=== PATIENT | female | born 1940 | race Caucasian/White ===

== ENCOUNTER 2019-06-19 15:14 | Outpatient (CLI) | payer MEDICARE, OTHER, SELFPAY ==
--- NOTE | ~2019-06-19 | CT_ITS ---
EXAMINATION: CT chest abdomen pelvis w con EXAM DATE: 06/19/2019 16:04 INDICATION: CLL. TECHNIQUE: Spiral CT of the chest, abdomen and pelvis was performed following intravenous injection o f 100 mL Omnipaque 350. Axial, coronal and sagittal images were reviewed. Coronal maximum intensity pixel images of chest reviewed. The dose-length product (DLP) for this examination was 511.31 mGy-c m. The exposure was tailored according to patient size (auto mA exposure control), and iterative rec onstruction (ASIR) was used as additional dose reduction technique. There is prior CT chest abdomen pelvis from 2006 for comparison. FINDINGS: CHEST: New biapical opacities appearance consistent with scarring. Mild emphysema and hyperinflation . The lungs are otherwise clear. There are no pleural or pericardial effusions. Tracheobronchial tree is patent. There is no mediastinal, hilar or axillary lymphadenopathy. There is no pneumotho rax. Heart normal in size. There is mild coronary arterial calcification, arterial sclerosis. ABDOMEN PELVIS: The liver, spleen, adrenal glands and pancreas are unremarkable. Gallbladder is unre markable. No biliary obstruction. Portal and splenic veins are patent. Kidneys enhance symmetrical ly. There is no hydronephrosis. The uterus is not identified and has likely been surgically resect ed. The bladder is unremarkable. There is no retroperitoneal or pelvic lymphadenopathy. There is mild scattered arteriosclerotic disease. Small left inguinal fat-containing hernia. The appendix is not positively visualized. There is no pericecal inflammatory change to suggest appe ndicitis. There is small sliding gastroesophageal hiatal hernia. There is expected amount of colon ic stool. No free intraperitoneal gas. There are no osteoblastic or osteolytic lesions identified . Advanced thoracolumbar spondylosis. IMPRESSION: 1. No chest abdomen or pelvis lymphadenopathy. Normal spleen size. 2. Mild emphysema and hyperinflation. 3. Small hiatal hernia. Reviewed, dictated and finalized at location A. 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
[2019-06-19 15:49] LABS: Blood Urea Nitrogen 23 mg/dL (8-26); Estimated Glomerular Filt Rate 31
== END 2019-06-19 15:15 | disposition home or self-care (01) ==
PROVIDERS: Visit Provider Internal Medicine Medical Oncology
DX: C91.10 Chronic lymphocytic leukemia of B-cell type not having achieved remission (principal); K44.9 Diaphragmatic hernia without obstruction or gangrene; J43.9 Emphysema, unspecified
CPT/HCPCS: 71260; 74177; Q9967

== ENCOUNTER 2019-06-26 11:47 | Outpatient (RCR) | payer MEDICARE, OTHER, SELFPAY ==
[2019-06-26 12:18] LABS: Hematocrit 21.2 % (37.0-47.0); Hemoglobin 7.1 g/dL (12.0-15.0)
[2019-06-27] MEDS: ACETAMINOPHEN 325 MG TABLET 650 MG PO (10:27)
[2019-06-27 10:30] VITALS: BMI 25.4
[2019-06-27 10:50] VITALS: BP 112/60; PULSE 78; RESP 16; TEMP 37.3; O2SAT 96
[2019-06-27] MEDS: SODIUM CHLORIDE 0.9% IV 250 ML 30 ML IV CONT (10:50)
[2019-06-27 11:05] VITALS: BP 118/64; PULSE 73; RESP 16; TEMP 37; O2SAT 100
[2019-06-27 12:05] VITALS: BP 109/65; PULSE 84; RESP 16; TEMP 36.9; O2SAT 98
[2019-06-27 13:05] VITALS: BP 107/64; PULSE 85; RESP 16; TEMP 36.9; O2SAT 98
== END 2019-09-24 23:59 | disposition home or self-care (01) ==
LOC: ANHCPCTRAN 11:47
PROVIDERS: Visit Provider Internal Medicine Medical Oncology
DX: C91.10 Chronic lymphocytic leukemia of B-cell type not having achieved remission (principal)
CPT/HCPCS: 36415; 36430; 85014; 85018; 86850; 86860; 86870; 86880; 86900; 86901; 86902; 86922; 86970; 86971; 86978; A9270; J1100; J7050; P9016

== ENCOUNTER 2019-07-08 09:53 | Outpatient (CLI) | payer MEDICARE, OTHER, SELFPAY ==
[2019-07-08 10:29] LABS: Basophils Absolute Auto 0.1 K/mm3 (0.0-0.1); Basophils Percent Auto 0.5 % (0.2-1.2); Eosinophils Absolute Auto 0.4 K/mm3 (0-0.3); Eosinophils Percent Auto 3.7 % (0-4.4); Immature Granulocyte Absolute 0.15 K/mm3 (0.00-0.031); Immature Granulocyte Percent A 1.3 % (0-0.5); Lymphocytes Absolute Auto 1.54 K/mm3 (0.9-3.2); Lymphocytes Percent Auto 13.8 % (18.3-44.2); Mean Corpuscular HGB Conc 31.5 g/dl (32-36); Mean Corpuscular Hemoglobin 41.9 pg (26-34); Mean Corpuscular Volume 133.1 fl (80-100); Mean Platelet Volume 8.9 fl (7.4-10.4); Monocytes Absolute Auto 1.6 K/mm3 (0.1-0.6); Monocytes Percent Auto 14.7 % (2.6-8.5); Neutrophils Absolute Auto 7.3 K/mm3 (1.3-6.7); Nucleated Red Blood Cells Absolute Auto 0.2 K/mm3 (0.0-0.012); Nucleated Red Blood Cells Perc 1.7 % (0.0-0.2); Platelet Count Result 254 k/mm3 (150-375); Red Blood Count 1.36 M/mm3 (4.2-5.4); Red Cell Distribution Width 18.6 % (11.5-14.5); White Blood Count 11.1 K/mm3 (4.5-10.0)
[2019-07-08 10:40] LABS: Hemoglobin 5.7 g/dL (12.0-15.0)
[2019-07-08 10:41] LABS: Hematocrit 18.1 % (37.0-47.0)
== END 2019-07-08 09:54 | disposition home or self-care (01) ==
LOC: ANHLAB 10:05
PROVIDERS: Visit Provider Internal Medicine Medical Oncology
DX: C91.10 Chronic lymphocytic leukemia of B-cell type not having achieved remission (principal)
CPT/HCPCS: 36415; 85025

== ENCOUNTER 2019-07-08 11:31 | Inpatient (IN) | payer MEDICARE, OTHER, SELFPAY ==
[2019-07-08] VITALS (25 sets, daily range): BP systolic 112–145; BP diastolic 52–82; PULSE 80–108; RESP 14–24; TEMP 36.4–36.9; O2SAT 82–100; BMI 25.3
[2019-07-08 12:28] LABS: INR 0.9; Prothrombin Time 12.3 Seconds (11.1-14.7)
[2019-07-08 12:29] LABS: Partial Thromboplastin Time 24.4 SECONDS (22.3-36.8)
[2019-07-08 12:29] LABS: Blood Urea Nitrogen 16 mg/dL (7-17); Calcium 9.3 mg/dL (8.4-10.2); Carbon Dioxide 25 mmol/L (22-30); Chloride 94 mmol/L (98-107); Estimated CRCL calculation 30 ml/min; Estimated Glomerular Filt Rate 48; Glucose 116 mg/dL (65-105); Potassium 3.9 mmol/L (3.4-5.0); Sodium 125 mmol/L (137-145)
--- NOTE | 2019-07-08 15:27 | ED.GENADULT ---
HPI - General Adult General Chief complaint: Recheck/Abnormal Lab/Rx Stated complaint: low hemoglobin, sent from PMD, labs checked today Time Seen by Provider: 07/08/19 15:25 Source: RN notes reviewed History of Present Illness HPI narrative: Patient presents emergency department from home for weakness. Patient she has a history of CLL was found to have low hemoglobin. Patient is followed by Dr. Castellon. She was directed to come to emergency department for admission for blood transfusion and further treatment. She notes shortness of breath with exertion. She denies any fevers or chills chest pain abdominal pain nausea vomiting or any other symptoms Related Data Home Medications Medication Instructions Recorded Confirmed acebutolol 200 mg PO BID 07/08/19 diclofenac sodium 2 g TOPICAL QID 07/08/19 fluticasone propionate 2 spray INTRANASAL DAILY 07/08/19 hydrochlorothiazide 25 mg PO DAILY 07/08/19 levothyroxine 88 mcg PO DAILY 07/08/19 nifedipine 30 mg PO DAILY 07/08/19 ondansetron HCl 4 mg PO Q6H PRN 07/08/19 tramadol 50 mg PO Q6H PRN 07/08/19 zolpidem 5 mg PO HS PRN 07/08/19 Allergies Allergy/AdvReac Type Severity Reaction Status Date / Time sulfamethoxazole Allergy Unknown N&V Verified 07/08/19 15:28 trimethoprim Allergy Unknown N&V Verified 07/08/19 15:28 Review of Systems Review of Systems: Narrative: Gen.: Denies fevers or chills Eyes: Denies eye pain or visual change ENT: Denies congestion Respiratory: Denies shortness of breath or cough CV: Denies chest pain or palpitations GI: Denies abdominal pain nausea, emesis or diarrhea denies burning, urgency, frequency or hematuria Musculoskeletal: Denies back pain or muscle pain Neuro: Reports weakness Skin: Denies rash Except as documented, all other systems reviewed and negative [facility] Past Medical History Medical History (Updated 07/08/19 @ 16:00 by Andrea Kang DO) CLL (chronic lymphocytic leukemia) Family History Family History (Updated 08/24/17 @ 10:19 by DOCTOR UNKNOWN) Grandparent Cerebrovascular accident Family history of coronary artery disease Father Family history of kidney disease, Onset Age: 83 Family history of coronary artery disease, Onset Age: 83 Social History Social History Smoking status: Never smoker Alcohol intake: never Gender identity (if verbalized by the patient): Female Exam Narrative: Exam Narrative: APPEARANCE: No acute distress, nontoxic, resting in bed EYES: EOMI, scleral icterus HEENT: Normocephalic, atraumatic, OMM RESPIRATORY: No respiratory distress Clear to auscultation bilaterally with no rhonchi wheezing or rales. CARDIOVASCULAR: Regular rate and rhythm without murmurs rubs or gallops. ABDOMINAL: Soft, nontender, nondistended, no rebound or guarding MUSCULOSKELETAl: Moves all extremities. No clubbing, cyanosis or edema. NEURO: Awake and alert. Following commands, speech normal, no focal deficits SKIN:: Warm, dry. No rashes lesions or abrasions PSYCHIATRIC: Normal affect/mood, Course Course Emergency Course: Reviewed old records Discussed with Dr. Grossman for Dr. Castellon. Request patient received 2 units packed red blood cells. Request patient receive Solu-Medrol 60 mg IV x1 now followed by 30 mg every 12 hours Discussed with JUAN Simon presentation work-up he agrees with admission at this time Discussed with patient and family results of workup and diagnosis. Discussed need for admission. Patient and family understand and agree to current treatment plan Vital Signs Vital signs: Vital Signs Temperature 97.6 F 07/08/19 11:59 Pulse Rate 80 07/08/19 11:59 Respiratory Rate 18 07/08/19 11:59 Blood Pressure 124/61 07/08/19 11:59 Pulse Oximetry 100 07/08/19 11:59 Temperature 97.6 F 07/08/19 11:59 Pulse Rate 88 07/08/19 15:22 Respiratory Rate 16 07/08/19 15:22
--- NOTE | 2019-07-08 15:34 | PC.NURSE ---
called lab and added on hepatic
[2019-07-08] MEDS: methylPREDNISolone SOD SUCC 40 MG VIAL 60 MG IV PUSH (16:06)
[2019-07-08] MEDS: FOLIC ACID 1 MG/0.2 ML INJ IV PUSH (16:07)
[2019-07-08] MEDS: SODIUM CHLORIDE 0.9% IV 250 ML 30 ML IV CONT (16:07)
[2019-07-08 16:47] LABS: Alanine Aminotransferase 13 U/L (4-35); Albumin Level 3.9 g/dL (3.5-5.1); Alkaline Phosphatase 91 U/L (38-126); Aspartate Amino Transferase 61 U/L (14-36); Bilirubin,Total 9.4 mg/dL (0.2-1.3)
--- NOTE | 2019-07-08 18:10 | PC.NURSE ---
This patient, Amber Atwood, was admitted to Medical Room 252-01. Patient/family oriented to hospital policies and general routines including ID bracelet, bed and alarms, visiting hours, pain management, procedures, bathroom and other care routines, personal items, smoking policy, room service/diet, and visiting hours. Valuables list has been completed. Information on how to activate the Rapid Response Team has been discussed. Patient/Family are encouraged to report perceived risks to care and to ask questions if they do not understand what they are told or what they should do.
[2019-07-08] MEDS: ACETAMINOPHEN 325 MG TABLET 650 MG PO (21:52)
[2019-07-08] MEDS: SODIUM CHLORIDE 0.9% IV 500 ML 30 ML (21:59)
[2019-07-09] VITALS (13 sets, daily range): BP systolic 109–138; BP diastolic 44–66; PULSE 53–98; RESP 14–21; TEMP 36–37.2; O2SAT 97–100
[2019-07-09] MEDS: TRAMADOL HCL 50 MG TABLET PO ×2 (00:33→21:28)
[2019-07-09] MEDS: ACEBUTOLOL HCL 200 MG CAPSULE PO ×3 (00:34→17:52)
[2019-07-09] MEDS: ZOLPIDEM TARTRATE 5 MG TABLET PO ×2 (00:37→22:41)
[2019-07-09] MEDS: LEVOTHYROXINE SODIUM 88 MCG TABLET PO (06:17)
--- NOTE | 2019-07-09 07:19 | WPDONCCN ---
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 On high dose of IV methyl prednisone. She has had an adequate increment after 2 units of PRBC transfusion. Continue monitoring CBC, CMP, LDH and diret bilirubin daily. (2) CLL (chronic lymphocytic leukemia): Code(s): C91.10 - Chronic lymphocytic leukemia of B-cell type not having achieved remission Status: Chronic Assessment and Plan: On Cytoxan as outpatient . Hold off treatment for now till acute issues resolve.. HPI Data of Consult Date/Time: 07/09/19 07:19 Requesting Physician: ERICA Wall Primary Care Provider: Ty Castellon, Consult Narrative Narrative: Amber Atwood is a 78 year old female who initially presented with Stage ) CLL in 2006. She is a patient of Dr. Castellon. She also has hypogammaglobinemia and has history of recurrent Autoimmune hemolytic anemia which started in 2015 and has responded to steroids well. She has beeen treated in the past with Chlorambucil and obitunuzumab in 2015 and Rituxan in June 2018. Currently she was started on cyclophosphamide in Jun 2019 while she was waiting for approval for venetoclax. She presented with weakness and was found to have a Hb of 5.7 with bilirubin of 9.1. Her Direct bernard was positive in the ED of [facility]. She was transfused 2 units of PRBC, started on folic acid as well as methyl prednisone IV 30 mg BID. Review of Systems Review of Systems: Narrative: 14 point review as per HPI/ Onc history. Rest of the systems negative. [facility] Past Medical History Medical History CLL (chronic lymphocytic leukemia) GERD (gastroesophageal reflux disease) Hyperlipidemia Hypertension Hypothyroidism Irritable bowel syndrome Alternates between constipation and diarrhea SVT (supraventricular tachycardia) Surgical History Surgical History H/O hemorrhoidectomy She believes in her 20s. H/O: hysterectomy History of rectal surgery benign rectal tumor resection age 18yo Hx of appendectomy At time of her hysterectomy Family History Family History Grandparent Cerebrovascular accident Family history of coronary artery disease Father Family history of kidney disease, Onset Age: 83 Family history of coronary artery disease, Onset Age: 83 Social History Social History Smoking status: Never smoker Alcohol intake: never Substance use: never Substance use type: does not use Gender identity (if verbalized by the patient): Female Spiritual care concerns: No Agree to blood products: Yes Meds Home Medications and Allergies Home Medications Medication Instructions Recorded Confirmed Type acebutolol 200 mg PO BID 07/08/19 07/08/19 History diclofenac sodium 2 g TOPICAL QID 07/08/19 07/08/19 History fluticasone propionate 2 spray INTRANASAL DAILY 07/08/19 07/08/19 History hydrochlorothiazide 25 mg PO DAILY 07/08/19 07/08/19 History levothyroxine 88 mcg PO DAILY 07/08/19 07/08/19 History nifedipine 30 mg PO DAILY 07/08/19 07/08/19 History ondansetron HCl 4 mg PO Q6H PRN 07/08/19 07/08/19 History tramadol 50 mg PO Q6H PRN 07/08/19 07/08/19 History zolpidem 5 mg PO HS PRN 07/08/19 07/08/19 History Allergies Allergy/AdvReac Type Severity Reaction Status Date / Time sulfamethoxazole Allergy Unknown N&V Verified 07/08/19 15:28 trimethoprim Allergy Unknown N&V Verified 07/08/19 15:28 Vital Signs Vi
[2019-07-09 07:34] LABS: Basophils Absolute Auto 0.1 K/mm3 (0.0-0.1); Basophils Percent Auto 0.4 % (0.2-1.2); Eosinophils Percent Auto 0.1 % (0-4.4); Hematocrit 25.9 % (37.0-47.0); Hemoglobin 8.7 g/dL (12.0-15.0); Immature Granulocyte Absolute 0.14 K/mm3 (0.00-0.031); Immature Granulocyte Percent A 1.2 % (0-0.5); Lymphocytes Absolute Auto 1.27 K/mm3 (0.9-3.2); Lymphocytes Percent Auto 10.6 % (18.3-44.2); Mean Corpuscular HGB Conc 33.6 g/dl (32-36); Mean Corpuscular Hemoglobin 37.3 pg (26-34); Mean Corpuscular Volume 111.2 fl (80-100); Mean Platelet Volume 8.7 fl (7.4-10.4); Monocytes Absolute Auto 1.4 K/mm3 (0.1-0.6); Monocytes Percent Auto 11.7 % (2.6-8.5); Neutrophils Absolute Auto 9.1 K/mm3 (1.3-6.7); Nucleated Red Blood Cells Absolute Auto 0.3 K/mm3 (0.0-0.012); Nucleated Red Blood Cells Perc 2.6 % (0.0-0.2); Platelet Count Result 209 k/mm3 (150-375); Red Blood Count 2.33 M/mm3 (4.2-5.4); Red Cell Distribution Width 25.6 % (11.5-14.5)
[2019-07-09 07:47] LABS: Alanine Aminotransferase 16 U/L (4-35); Albumin Level 3.9 g/dL (3.5-5.1); Alkaline Phosphatase 78 U/L (38-126); Aspartate Amino Transferase 58 U/L (14-36); Blood Urea Nitrogen 16 mg/dL (7-17); Calcium 9.5 mg/dL (8.4-10.2); Carbon Dioxide 26 mmol/L (22-30); Chloride 96 mmol/L (98-107); Estimated CRCL calculation 32 ml/min; Estimated Glomerular Filt Rate 54; Glucose 111 mg/dL (65-105); Magnesium 1.5 mg/dL (1.6-2.3); Potassium 3.7 mmol/L (3.4-5.0); Sodium 127 mmol/L (137-145)
[2019-07-09] MEDS: MAGNESIUM SULF 2 GM/WATER 50ML 2 GM/50 ML BAG IVPB (09:19)
[2019-07-09] MEDS: methylPREDNISolone SOD SUCC 40 MG VIAL 30 MG IV PUSH ×2 (09:20→21:28)
[2019-07-09] MEDS: FOLIC ACID 1 MG/0.2 ML INJ IV PUSH (09:21)
[2019-07-09] MEDS: FLUTICASONE PROPIONATE 0.05% NA SPR 16 GM BTL (*BKC) 2 SPRAY NASAL (09:22)
[2019-07-09] MEDS: NIFEdipine 30 MG TAB.ER.24 PO (09:23)
--- NOTE | 2019-07-09 11:23 | PM.IMHP ---
H&P: HPI History of Present Illness Chief complaint: Weakness Narrative: Date of Service 07/09/19 1100 The supervising physician for this history and physical is Dr Argueta. Ms. Atwood is a pleasant 78yo F with history of CLL, hypertension, hypothyroidism, irritable bowel syndrome history of supraventricular tachycardia presented to the ED for evaluation of weakness. She follows with Dr. Castellon and had been getting labs drawn regularly as an outpatient. She reports she was feeling more weak and tired and called Dr. Castellon's office yesterday, who instructed her to get outpatient lab work done. Her hemoglobin was found to be 5.7 yesterday and she reports she was barely able to stand up or walk. She noted that she recently received a blood transfusion (1 unit) in the last few weeks as an outpatient. She reports feeling better and stronger today. She denies chest pain, shortness of breath, palpitations, or dizziness. She notes some mild nausea without vomiting which she attributes to her new chemotherapy regimen. She reports she has been eating and drinking well lately and denies any sick contacts. She is admitted for management of symptomatic anemia and Dr Castellon's group has been consulted. Review of Systems Review of Systems: Narrative: She reports generalized weakness, improved today. She denies dizziness, lightheadedness, or headaches. Denies fevers or chills. No chest pain or shortness of breath. Minimal nausea without vomiting with starting a new chemotherapy regimen recently, hematochezia, or melena. Twelve systems were reviewed with pertinent positives and negatives as per HPI. [facility] Past Medical History Medical History CLL (chronic lymphocytic leukemia) GERD (gastroesophageal reflux disease) Hyperlipidemia Hypertension Hypothyroidism Irritable bowel syndrome Alternates between constipation and diarrhea SVT (supraventricular tachycardia) Surgical History Surgical History H/O hemorrhoidectomy She believes in her 20s. H/O: hysterectomy History of rectal surgery benign rectal tumor resection age 18yo Hx of appendectomy At time of her hysterectomy Family History Family History Grandparent Cerebrovascular accident Family history of coronary artery disease Father Family history of kidney disease, Onset Age: 83 Family history of coronary artery disease, Onset Age: 83 Social History Social History Smoking status: Never smoker Alcohol intake: never Substance use: never Substance use type: does not use Gender identity (if verbalized by the patient): Female Spiritual care concerns: No Agree to blood products: Yes Meds Home Medications and Allergies Home Medications Medication Instructions Recorded Confirmed Type acebutolol 200 mg PO BID 07/08/19 07/08/19 History diclofenac sodium 2 g TOPICAL QID 07/08/19 07/08/19 History fluticasone propionate 2 spray INTRANASAL DAILY 07/08/19 07/08/19 History hydrochlorothiazide 25 mg PO DAILY 07/08/19 07/08/19 History levothyroxine 88 mcg PO DAILY 07/08/19 07/08/19 History nifedipine 30 mg PO DAILY 07/08/19 07/08/19 History ondansetron HCl 4 mg PO Q6H PRN 07/08/19 07/08/19 History tramadol 50 mg PO Q6H PRN 07/08/19 07/08/19 History zolpidem 5 mg PO HS PRN 07/08/19 07/08/19 History Allergies Allergy/AdvReac Type Severity Reaction Status Date / Time sulfamethoxazole Allergy Unknown N&V Verified 07/08/19 15:28 trimethoprim Allergy Unknown N&V Verified 07/08/19 15:28 Vital Signs Last Vital Signs Temp 97.0 F L 07/09/19 06:00 Pulse 65 07/09/19 09:22 Resp 20 07/09/19 06:00 BP 138/66 07/09/19 06:00 Pulse Ox 98 07/09/19 06:00 Exam Narrative: Exam Narrative: General: Well-develop
[2019-07-09] MEDS: PANTOPRAZOLE 40 MG TABLET PO (13:31)
[2019-07-09] MEDS: hydroCHLOROthiazide 25 MG TABLET PO (13:31)
--- NOTE | 2019-07-09 17:05 | PC.NURSE ---
Acebutolol for 1700 will not scan, left message for pharmacy.
[2019-07-10 05:55] LABS: Basophils Percent Auto 0.2 % (0.2-1.2); Hematocrit 25.4 % (37.0-47.0); Hemoglobin 8.6 g/dL (12.0-15.0); Immature Granulocyte Absolute 0.18 K/mm3 (0.00-0.031); Immature Granulocyte Percent A 1.2 % (0-0.5); Lymphocytes Absolute Auto 1.08 K/mm3 (0.9-3.2); Lymphocytes Percent Auto 7.2 % (18.3-44.2); Mean Corpuscular HGB Conc 33.9 g/dl (32-36); Mean Corpuscular Hemoglobin 38.4 pg (26-34); Mean Corpuscular Volume 113.4 fl (80-100); Mean Platelet Volume 8.9 fl (7.4-10.4); Monocytes Absolute Auto 0.8 K/mm3 (0.1-0.6); Monocytes Percent Auto 5.4 % (2.6-8.5); Nucleated Red Blood Cells Absolute Auto 0.3 K/mm3 (0.0-0.012); Platelet Count Result 244 k/mm3 (150-375); Red Blood Count 2.24 M/mm3 (4.2-5.4); Red Cell Distribution Width 27.9 % (11.5-14.5); White Blood Count 15.1 K/mm3 (4.5-10.0)
[2019-07-10 06:00] VITALS: BP 112/54; PULSE 81; RESP 20; TEMP 36.2; O2SAT 98
[2019-07-10] MEDS: LEVOTHYROXINE SODIUM 88 MCG TABLET PO (06:11)
[2019-07-10 06:19] LABS: Albumin Level 3.9 g/dL (3.5-5.1)
[2019-07-10 06:22] LABS: Alanine Aminotransferase 16 U/L (4-35); Alkaline Phosphatase 75 U/L (38-126); Aspartate Amino Transferase 64 U/L (14-36); Bilirubin,Total 8.2 mg/dL (0.2-1.3); Blood Urea Nitrogen 21 mg/dL (7-17); Calcium 9.1 mg/dL (8.4-10.2); Carbon Dioxide 26 mmol/L (22-30); Chloride 95 mmol/L (98-107); Estimated CRCL calculation 32 ml/min; Estimated Glomerular Filt Rate 54; Glucose 124 mg/dL (65-105); Magnesium 1.9 mg/dL (1.6-2.3); Phosphorus 4.3 mg/dL (2.5-4.5); Potassium 3.7 mmol/L (3.4-5.0); Sodium 128 mmol/L (137-145)
[2019-07-10 06:58] LABS: Lactate Dehydrogenase 3200 U/L (313-618)
[2019-07-10 08:00] VITALS: PULSE 76; RESP 20; O2SAT 98
[2019-07-10 09:48] VITALS: PULSE 76
[2019-07-10] MEDS: FLUTICASONE PROPIONATE 0.05% NA SPR 16 GM BTL (*BKC) 2 SPRAY NASAL (09:48)
[2019-07-10] MEDS: ACEBUTOLOL HCL 200 MG CAPSULE PO ×2 (09:48→17:15)
[2019-07-10] MEDS: FOLIC ACID 1 MG/0.2 ML INJ IV PUSH (09:50)
[2019-07-10] MEDS: PANTOPRAZOLE 40 MG TABLET PO (09:51)
[2019-07-10] MEDS: NIFEdipine 30 MG TAB.ER.24 PO (09:51)
[2019-07-10] MEDS: hydroCHLOROthiazide 25 MG TABLET PO (09:51)
[2019-07-10] MEDS: methylPREDNISolone SOD SUCC 40 MG VIAL 30 MG IV PUSH ×2 (09:51→17:13)
--- NOTE | 2019-07-10 13:20 | WPDONCCN ---
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 Improved H/H after blood transfusion and steroids 2. Will give IVIG at 500 mg/kg today and tomorrow for temporary enhancement of her counts 3. Can be discharge tomorrow 4. Rx for Prednisone 20 mg daily 5. Rx Acyclovir 300 mg daily 6. f/u with me on July 11 in my [place] office 7. make sure she is on a PPI to prevent steroid PUD 8. Repeat CBC in AM HPI Data of Consult Date/Time: 07/10/19 13:20 Requesting Physician: ERICA Wall Primary Care Provider: Ty Castellon DO Consult Narrative Narrative: Amber Atwood is a 78 year old female 1. Hemolytic anemia due to CLL 2. Anxious and restlessness from high dose steroids 3. Improved dyspnea and stamina with increase in her H/H Review of Systems Review of Systems: All systems reviewed & are unremarkable except as noted in HPI and below Constitutional: Constitutional: Denies anorexia, Reports fatigue, Denies fever(s), Denies malaise, Denies night sweats, Reports snoring, Reports weakness and Denies weight loss Eyes: Eyes: Denies blurry vision ENT: Denies dysphagia, Denies epistaxis, Denies mouth lesions, Denies mouth pain, Denies odynophagia, Denies disequilibrium and Denies sore throat Cardiovascular: Cardiovascular: Denies chest pain, Denies leg edema and Denies dyspnea Respiratory: Respiratory: Denies cough, Denies dyspnea and Reports snoring Gastrointestinal: Gastrointestinal: Denies abdominal pain, Denies constipation, Denies dysphagia, Denies diarrhea, Denies nausea, Denies odynophagia and Denies vomiting Genitourinary: Genitourinary: Denies hematuria and Denies dysuria Musculoskeletal: Musculoskeletal: Denies myalgias, Reports arthralgias and Reports muscle weakness Integumentary/Breasts: Skin/Breast: Denies rash and Denies unusual bruising Neurologic: Denies confusion, Denies disequilibrium and Denies weakness Psychiatric: Psychiatric: Reports anxiety, Denies confusion and Denies depression Endocrine: Endocrine: Denies fatigue Hematologic/Lymphatic: Hematologic/Lymphatic: Denies easy bleeding, Reports easy bruising and Denies lymphadenopathy PENDING SALE TO [facility] Past Medical History Medical History CLL (chronic lymphocytic leukemia) GERD (gastroesophageal reflux disease) Hyperlipidemia Hypertension Hypothyroidism Irritable bowel syndrome Alternates between constipation and diarrhea SVT (supraventricular tachycardia) Surgical History Surgical History H/O hemorrhoidectomy She believes in her 20s. H/O: hysterectomy History of rectal surgery benign rectal tumor resection age 18yo Hx of appendectomy At time of her hysterectomy Family History Family History Grandparent Cerebrovascular accident Family history of coronary artery disease Father Family history of kidney disease, Onset Age: 83 Family history of coronary artery disease, Onset Age: 83 Social History Social History Smoking status: Never smoker Alcohol intake: never Substance use: never Substance use type: d
[2019-07-10 14:00] VITALS: BP 125/64; PULSE 82; RESP 18; TEMP 36.9; O2SAT 99
--- NOTE | 2019-07-10 14:42 | PM.IMPN ---
Progress Note: A&P Assessment and Plan (1) Symptomatic anemia: Code(s): D64.9 - Anemia, unspecified Status: Acute Assessment and Plan: Acute on chronic anemia, autoimmune hemolytic anemia. No evidence of acute bleeding. H&H 5.7, 18.1% on 07/07 outpatient and she received 2 units packed RBC; H&H low but stable at 8.6, 25.4% today. Management per heme/onc. Discussed case with Dr. Castellon and appreciate his recommendations. (2) CLL (chronic lymphocytic leukemia): Code(s): C91.10 - Chronic lymphocytic leukemia of B-cell type not having achieved remission Status: Chronic Assessment and Plan: Noted Dr Castellon's plan for IVIG today and tomorrow, plan for discharge home tomorrow if she remains stable with oral prednisone and oral acyclovir and short interval follow-up in his office. (3) Hypertension: Code(s): I10 - Essential (primary) hypertension Status: Chronic Assessment and Plan: Blood pressures maintained on home regimen with nifedipine, hydrochlorothiazide, acebutolol. (4) Hypothyroidism: Code(s): E03.9 - Hypothyroidism, unspecified Status: Chronic Assessment and Plan: Continue home levothyroxine. Subjective Date/time seen: 07/10/19 1200 Interval history: Ms. Atwood is a 78yo F with CLL admitted for anemia. She reports feeling well today. She is feeling a little stronger than when she came in, but not quite back to her baseline. She denies any chest pain, shortness of breath, or dizziness. She is tolerating oral intake without nausea or vomiting. Review of Systems Review of Systems: Narrative: Twelve systems were reviewed with pertinent positives and negatives as per HPI. Exam Narrative: Exam Narrative: General: Female resting sitting up in bedside chair in no acute distress. HEENT: Normocephalic, atraumatic, EOMI, scleral icterus. Neck: Supple. Chest: Lungs clear to auscultation all lyon. Respirations are even and nonlabored. Tolerating room air. Heart: Heart rate and rhythm regular. Abdomen: Soft nontender, nondistended. Bowel sounds present. Skin: Warm, dry, jaundiced. Extremities: Peripheral pulses intact. No edema, erythema, or pain to palpation. Neurologic: No focal neurological deficits noted. Speech is clear. Objective Data Vital Signs Vital Signs: Last Vital Signs Temp 97.2 F L 07/10/19 06:00 Pulse 76 07/10/19 09:48 Resp 20 07/10/19 08:00 BP 112/54 L 07/10/19 06:00 Pulse Ox 98 07/10/19 08:00 Intake/Output Intake/Output: Intake & Output 07/07/19 07/08/19 07/09/19 07/10/19 23:59 23:59 23:59 23:59 Intake Total 0 2544 790 Output Total 1900 800 Balance 0 644 -10 Meds/Results Medications: Active Medications Generic Name Dose Route Start Last Admin Trade Name Freq PRN Reason Stop Dose Admin Acebutolol HCl 200 mg 07/08/19 22:45 07/10/19 09:48 Sectral PO 200 mg BID LUZMA Administration Diphenhydramine HCl 25 mg 07/11/19 09:39 Benadryl Cap PO 07/11/19 09:40 ONCE ONE Fluticasone Propionate 2 spray 07/09/19 09:00 07/10/19 09:48 Flonase 0.05% Nasal Latta NASAL 2 spray DAILY LUZMA Administration Folic Acid 1 mg 07/09/19 09:00 07/10/19 09:50 Folic Acid Inj IV PUSH 1 mg QAM LUZMA Administration Hydrochlorothiazide 25 mg 07/09/19 09:00 07/10/19 09:51 Hydrochlorothiazide PO 25 mg DAILY LUZMA Administration Immune Globulin 31,400 gm in 314,000 mls @ 0 mls/hr 07/11/19 13:31 Privigen 10% IVPB 07/11/19 13:32 ONCE ONE Per Protocol Levothyroxine Sodium 88 mcg 07/09/19 06:30 07/10/19 06:11 Synthroid PO 88 mcg DAILY@0630 LUZMA Administration Methylprednisolone Sodium Succinate 30 mg 07/09/19 09:00 07/10/19 09:51 Solu-Medrol IV PUSH 30 mg Q12HR LUZMA Administration Nifedipine 30 mg 07/09/19 09:0
[2019-07-10] MEDS: TRAMADOL HCL 50 MG TABLET PO ×2 (15:16→23:46)
[2019-07-10 17:15] VITALS: PULSE 76
[2019-07-10] MEDS: ZOLPIDEM TARTRATE 5 MG TABLET PO (22:35)
[2019-07-10 22:36] VITALS: BP 104/47; PULSE 88; RESP 16; TEMP 36.7; O2SAT 97
[2019-07-11] VITALS (14 sets, daily range): BP systolic 110–150; BP diastolic 47–72; PULSE 74–89; RESP 15–17; TEMP 36.1–36.8; O2SAT 97–99
[2019-07-11] MEDS: LEVOTHYROXINE SODIUM 88 MCG TABLET PO (06:08)
[2019-07-11 06:10] LABS: Basophils Percent Auto 0.1 % (0.2-1.2); Hematocrit 21.1 % (37.0-47.0); Immature Granulocyte Absolute 0.37 K/mm3 (0.00-0.031); Immature Granulocyte Percent A 2.4 % (0-0.5); Lymphocytes Percent Auto 9.7 % (18.3-44.2); Mean Corpuscular HGB Conc 33.2 g/dl (32-36); Mean Corpuscular Volume 114.7 fl (80-100); Mean Platelet Volume 8.9 fl (7.4-10.4); Monocytes Absolute Auto 1.4 K/mm3 (0.1-0.6); Monocytes Percent Auto 9.2 % (2.6-8.5); Neutrophils Absolute Auto 12.2 K/mm3 (1.3-6.7); Neutrophils Percent Auto 78.6 % (45.5-73.1); Nucleated Red Blood Cells Absolute Auto 0.2 K/mm3 (0.0-0.012); Nucleated Red Blood Cells Perc 1.2 % (0.0-0.2); Platelet Count Result 195 k/mm3 (150-375); Red Blood Count 1.84 M/mm3 (4.2-5.4); White Blood Count 15.5 K/mm3 (4.5-10.0)
[2019-07-11 07:01] LABS: Alanine Aminotransferase 14 U/L (4-35); Albumin Level 3.4 g/dL (3.5-5.1); Alkaline Phosphatase 64 U/L (38-126); Aspartate Amino Transferase 37 U/L (14-36); Bilirubin,Total 6.6 mg/dL (0.2-1.3); Blood Urea Nitrogen 26 mg/dL (7-17); Carbon Dioxide 28 mmol/L (22-30); Chloride 94 mmol/L (98-107); Estimated CRCL calculation 32 ml/min; Estimated Glomerular Filt Rate 54; Glucose 96 mg/dL (65-105); Magnesium 1.7 mg/dL (1.6-2.3); Phosphorus 3.9 mg/dL (2.5-4.5); Potassium 3.5 mmol/L (3.4-5.0); Sodium 126 mmol/L (137-145)
[2019-07-11 07:18] LABS: Lactate Dehydrogenase 2431 U/L (313-618)
[2019-07-11 07:23] LABS: Platelet Estimate Adequate (Adequate)
[2019-07-11 07:24] LABS: Anisocytosis 2+ (NORMAL)
[2019-07-11] MEDS: MAGNESIUM OXIDE 200 MG TABLET PO ×2 (10:05→21:49)
[2019-07-11] MEDS: PANTOPRAZOLE 40 MG TABLET PO (10:06)
[2019-07-11] MEDS: FLUTICASONE PROPIONATE 0.05% NA SPR 16 GM BTL (*BKC) 2 SPRAY NASAL (10:06)
[2019-07-11] MEDS: hydroCHLOROthiazide 25 MG TABLET PO (10:06)
[2019-07-11] MEDS: NIFEdipine 30 MG TAB.ER.24 PO (10:06)
[2019-07-11] MEDS: methylPREDNISolone SOD SUCC 40 MG VIAL 30 MG IV PUSH ×2 (10:07→21:48)
[2019-07-11] MEDS: ACEBUTOLOL HCL 200 MG CAPSULE PO ×2 (10:08→18:18)
[2019-07-11] MEDS: FOLIC ACID 1 MG/0.2 ML INJ IV PUSH (10:17)
--- NOTE | 2019-07-11 10:59 | PM.IMPN ---
Progress Note: A&P Assessment and Plan (1) Symptomatic anemia: Code(s): D64.9 - Anemia, unspecified Status: Acute Assessment and Plan: Acute on chronic anemia, autoimmune hemolytic anemia. No evidence of acute bleeding. H&H 5.7, 18.1% on 07/07 outpatient and she received 2 units packed RBC 07/07; H&H low again today at 7.0, 21.1% and Dr. Castellon has ordered another 2 units packed RBC. Management per heme/onc. Discussed case with Dr. Castellon yesterday and appreciate his recommendations. She remains on IV solu-medrol here and will be discharged with oral prednisone. (2) CLL (chronic lymphocytic leukemia): Code(s): C91.10 - Chronic lymphocytic leukemia of B-cell type not having achieved remission Status: Chronic Assessment and Plan: Noted Dr Castellon's plan for IVIG yesterday and today, hopeful for discharge home tomorrow if she remains stable with oral prednisone and oral acyclovir and short interval follow-up in his office. (3) Hypertension: Code(s): I10 - Essential (primary) hypertension Status: Chronic Assessment and Plan: Blood pressures are stable maintained on home regimen with nifedipine, hydrochlorothiazide, acebutolol. (4) Hypothyroidism: Code(s): E03.9 - Hypothyroidism, unspecified Status: Chronic Assessment and Plan: Continue home levothyroxine. Subjective Date/time seen: 07/11/19 10:45 Interval history: Ms. Atwood is a 78yo F with CLL admitted for anemia. She reports feeling well today and feels she is getting a bit stronger. She denies any chest pain, shortness of breath, or dizziness. She denies dysuria or hematuria. She tolerated breakfast without nausea or vomiting. Review of Systems Review of Systems: Narrative: Twelve systems were reviewed with pertinent positives and negatives as per HPI. Exam Narrative: Exam Narrative: General: Female resting supine in bed in no acute distress. HEENT: Normocephalic, atraumatic, EOMI, scleral icterus. Neck: Supple. Chest: Lungs clear to auscultation all lyon. Respirations are even and nonlabored. Tolerating room air. Heart: Heart rate and rhythm regular. Abdomen: Soft nontender, nondistended. Bowel sounds present. Skin: Warm, dry, jaundiced. Extremities: Peripheral pulses intact. No edema, erythema, or pain to palpation. Neurologic: No focal neurological deficits noted. Speech is clear. Objective Data Vital Signs Vital Signs: Last Vital Signs Temp 97.2 F L 07/11/19 11:25 Pulse 81 07/11/19 11:25 Resp 16 07/11/19 11:25 BP 121/59 L 07/11/19 11:25 Pulse Ox 97 07/11/19 11:25 Intake/Output Intake/Output: Intake & Output 07/08/19 07/09/19 07/10/19 07/11/19 23:59 23:59 23:59 23:59 Intake Total 0 2544 2834 340 Output Total 1900 1850 800 Balance 0 644 984 -460 Meds/Results Medications: Active Medications Generic Name Dose Route Start Last Admin Trade Name Freq PRN Reason Stop Dose Admin Acebutolol HCl 200 mg 07/08/19 22:45 07/11/19 10:08 Sectral PO 200 mg BID LUZMA Administration Diphenhydramine HCl 25 mg 07/11/19 17:00 Benadryl Cap PO 07/11/19 17:01 ONCE ONE Fluticasone Propionate 2 spray 07/09/19 09:00 07/11/19 10:06 Flonase 0.05% Nasal [place] NASAL 2 spray DAILY LUZMA Administration Folic Acid 1 mg 07/09/19 09:00 07/11/19 10:17 Folic Acid Inj IV PUSH 1 mg QAM LUZMA Administration Hydrochlorothiazide 25 mg 07/09/19 09:00 07/11/19 10:06 Hydrochlorothiazide PO 25 mg DAILY LUZMA Administration Immune Globulin 30 gm/ Immune 314 mls @ 18.8 mls/hr 07/11/19 17:30 Globulin 1.4 gm/ N/A IVPB 07/12/19 10:12 ONCE ONE Sodium Chloride 250 mls @ 30 mls/hr 07/11/19 08:22 Normal Saline Iv IV CONT 07/11/19 16:41 .[id number] STA Levothyroxine Sodium 88 mcg 07/09/19 06:30 0
[2019-07-11] MEDS: SODIUM CHLORIDE 0.9% IV 250 ML 30 ML IV CONT (11:10)
[2019-07-11 11:29] LABS: Add Urine Microscopic? YES; Appearance Urine Clear (Clear); Bilirubin Urine Negative (Negative); Blood Urine 1+ (Negative); Color Urine Yellow (Yellow); Glucose Urine UA Negative (Negative); Ketones Urine Negative (Negative); Leukocyte Esterase Ur Negative LEU/UL (NEGATIVE); Nitrate Urine Negative (Negative); Protein Urine Negative (Negative); RBC Urine 0-2 /hpf (0-2); Squamous Epithelial Cell Urine Rare /hpf (Few); Urobilinogen Urine Negative mg/dL (<2.0); WBC Urine 0-3 /hpf (0-3)
[2019-07-11] MEDS: FUROSEMIDE INJ 40 MG/4 ML VIAL 20 MG IV PUSH (14:49)
--- NOTE | 2019-07-11 20:13 | WPDONCPN ---
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 today, she completed her 2 days of IVIG therapy. 2. She will have another repeat CBC in the morning. 3. She did get 2 units of blood today due to continued brisk hemolysis. 4. Patient continues to be on Solu-Medrol 30 mg every 12 hours. 5. I will evaluate the patient tomorrow/Monday for discharge or for continued medical therapy. (2) CLL (chronic lymphocytic leukemia): Code(s): C91.10 - Chronic lymphocytic leukemia of B-cell type not having achieved remission Status: Chronic Assessment and Plan: Directed therapy with Venetoclax will begin next Monday. CT scan shows no evidence of organomegaly or lymphadenopathy. Review of Systems Review of Systems All systems reviewed & are unremarkable except as noted in HPI and below ENT Reports Normal hearing present Respiratory Respiratory: Reports no additional respiratory complaints Genitourinary Genitourinary: Reports nocturia Musculoskeletal Musculoskeletal: Reports arthralgias Psychiatric Psychiatric: Reports anxiety Exam Const: General: cooperative, no acute distress, anxious and ill appearing; No confusion Nutritional Appearance: average body habitus Orientation/consciousness: patient oriented x3 and No confusion HENMT: General nose exam: Normal nares present Mouth: Yes Normal oral and palatal mucosa present, Yes oropharynx normal and Yes moist mucous membranes Teeth and gingiva: dentition normal Eyes: General: appearance normal, both eyes and all related structures Sclera: scleral abnormality EOM: EOMs intact bilaterally Neck: Neck: full ROM, supple and no JVD Thyroid: thyroid normal Lymphatic: no lymphadenopathy noted Resp: Effort & Inspection: normal respiratory effort Auscultation: clear to auscultation bilaterally Cardio: Rate: regular rate Rhythm: regular rhythm GI: Inspection: normal to inspection Auscultation: normal bowel sounds Rectal Exam: deferred Skin: General skin exam: normal color, no rashes or lesions noted, dry skin, jaundice and pallor Neuro: General: patient oriented x3, gait normal and No confusion Cranial nerves: Yes CN's II-XII intact bilaterally Cognition (Neuro): normal cognition Speech: normal speech Motor exam (neuro): Abnormal motor strength present Extrem: General: normal to inspection, no pedal edema and normal gait Psych: Mental Status: mental status grossly normal Affect: Anxious affect present Objective Data Vital Signs Vital Signs: Vital Signs - 24 hr 07/10/19 22:36 07/11/19 06:09 07/11/19 10:08 Temperature 36.7 C 36.7 C Pulse Rate 88 80 74 Respiratory Rate 16 16 Blood Pressure 104/47 L 110/57 L Pulse Oximetry 97 97 07/11/19 11:10 07/11/19 11:25 07/11/19 12:25 Temperature 36.2 C L 36.2 C L 36.1 C L Pulse Rate 84 81 80 Respiratory Rate 16 16 16 Blood Pressure 150/72 H 121/59 L 125/62 Pulse Oximetry 99 97 98 07/11/19 13:25 07/11/19 14:25 07/11/19 15:50 Temperature 36.2 C L 36.6 C 36.2 C L Pulse Rate 83 89 79 Respiratory Rate 17 17 16 Blood Pressure 120/55 L 111/47 L 128/62 Pulse Oximetry 98 99 99 07/11/19 16:05 07/11/19 17:05 07/11/19 18:05 Temperature 36.4 C L 36.3 C L 36.8 C Pulse Rate 79 83 83 Respiratory Rate 16 15 15 Blood Pressure 128/62 136/67 117/60 Pulse Oximetry 99 98 97 07/11/19 18:18 07/11/19 18:40 Temperature 36.4 C L Pulse Rate 82 84 Respiratory Rate 16 Blood Pressure 120/51 L Pulse Oximetry 97 Intake/Output Intake/Output: Intake & Output 07/08/19 07/09/19 07/10/19 07/11/19 23:59 23:59 23:59 23:59 Intake Total 0 / 0 2544 / 2544 2834 / 2834 3517 / 3517 Output Total 1899 / 0 1850 / 1850 2149 / 2149 B
[2019-07-11 21:10] LABS: Hematocrit 31.4 % (37.0-47.0); Hemoglobin 10.8 g/dL (12.0-15.0)
[2019-07-11] MEDS: ZOLPIDEM TARTRATE 5 MG TABLET PO (21:49)
[2019-07-11] MEDS: TRAMADOL HCL 50 MG TABLET PO (21:49)
[2019-07-12 05:17] LABS: Basophils Percent Auto 0.2 % (0.2-1.2); Hematocrit 30.5 % (37.0-47.0); Hemoglobin 10.2 g/dL (12.0-15.0); Immature Granulocyte Absolute 0.12 K/mm3 (0.00-0.031); Immature Granulocyte Percent A 1.5 % (0-0.5); Lymphocytes Absolute Auto 0.78 K/mm3 (0.9-3.2); Lymphocytes Percent Auto 9.6 % (18.3-44.2); Mean Corpuscular HGB Conc 33.4 g/dl (32-36); Mean Corpuscular Hemoglobin 34.9 pg (26-34); Mean Corpuscular Volume 104.5 fl (80-100); Mean Platelet Volume 9.1 fl (7.4-10.4); Monocytes Absolute Auto 0.4 K/mm3 (0.1-0.6); Monocytes Percent Auto 5.4 % (2.6-8.5); Neutrophils Absolute Auto 6.7 K/mm3 (1.3-6.7); Neutrophils Percent Auto 83.3 % (45.5-73.1); Nucleated Red Blood Cells Absolute Auto 0.1 K/mm3 (0.0-0.012); Nucleated Red Blood Cells Perc 1.6 % (0.0-0.2); Platelet Count Result 183 k/mm3 (150-375); Red Blood Count 2.92 M/mm3 (4.2-5.4); Red Cell Distribution Width 27.5 % (11.5-14.5); White Blood Count 8.1 K/mm3 (4.5-10.0)
[2019-07-12 05:32] LABS: Alanine Aminotransferase 16 U/L (4-35); Albumin Level 3.8 g/dL (3.5-5.1); Alkaline Phosphatase 85 U/L (38-126); Aspartate Amino Transferase 43 U/L (14-36); Bilirubin,Total 6.7 mg/dL (0.2-1.3); Blood Urea Nitrogen 31 mg/dL (7-17); Calcium 8.8 mg/dL (8.4-10.2); Carbon Dioxide 29 mmol/L (22-30); Chloride 92 mmol/L (98-107); Estimated CRCL calculation 30 ml/min; Estimated Glomerular Filt Rate 48; Glucose 124 mg/dL (65-105); Magnesium 1.7 mg/dL (1.6-2.3); Phosphorus 4.6 mg/dL (2.5-4.5); Potassium 3.5 mmol/L (3.4-5.0); Sodium 129 mmol/L (137-145)
[2019-07-12 05:49] VITALS: BP 122/59; PULSE 73; RESP 16; TEMP 36.2; O2SAT 98
[2019-07-12] MEDS: LEVOTHYROXINE SODIUM 88 MCG TABLET PO (06:54)
[2019-07-12 07:01] LABS: Lactate Dehydrogenase 2562 U/L (313-618)
[2019-07-12] MEDS: FLUTICASONE PROPIONATE 0.05% NA SPR 16 GM BTL (*BKC) 2 SPRAY NASAL (09:43)
[2019-07-12] MEDS: methylPREDNISolone SOD SUCC 40 MG VIAL 30 MG IV PUSH (09:43)
[2019-07-12] MEDS: TRAMADOL HCL 50 MG TABLET PO (09:44)
[2019-07-12] MEDS: hydroCHLOROthiazide 25 MG TABLET PO (09:44)
[2019-07-12] MEDS: PANTOPRAZOLE 40 MG TABLET PO (09:44)
[2019-07-12] MEDS: FOLIC ACID 1 MG/0.2 ML INJ IV PUSH (09:44)
[2019-07-12] MEDS: MAGNESIUM OXIDE 200 MG TABLET PO (09:44)
[2019-07-12 09:45] VITALS: PULSE 78
[2019-07-12] MEDS: ACEBUTOLOL HCL 200 MG CAPSULE PO (09:45)
[2019-07-12] MEDS: NIFEdipine 30 MG TAB.ER.24 PO (09:46)
--- NOTE | 2019-07-12 10:12 | PM.IMPN ---
Progress Note: A&P Assessment and Plan (1) Symptomatic anemia: Code(s): D64.9 - Anemia, unspecified Status: Acute Assessment and Plan: Discharged. See discharge summary. Acute on chronic anemia, autoimmune hemolytic anemia. No evidence of acute bleeding. H&H 5.7, 18.1% on 07/07 outpatient prior to arrival. She has received a total of 4 units packed RBC during this stay. Management per heme/onc - appreciate Dr Castellon's recommendations. She remains on IV solu-medrol here and will be discharged with oral prednisone. (2) CLL (chronic lymphocytic leukemia): Code(s): C91.10 - Chronic lymphocytic leukemia of B-cell type not having achieved remission Status: Chronic Assessment and Plan: Anticipate possible discharge today with oral prednisone and oral acyclovir, follow up with Dr Castellon. (3) Hypertension: Qualifiers: Hypertension type: essential hypertension Qualified Code(s): I10 - Essential (primary) hypertension Code(s): I10 - Essential (primary) hypertension Status: Chronic Assessment and Plan: Blood pressures are stable maintained on home regimen with nifedipine, hydrochlorothiazide, acebutolol. (4) Hypothyroidism: Qualifiers: Hypothyroidism type: unspecified Qualified Code(s): E03.9 - Hypothyroidism, unspecified Code(s): E03.9 - Hypothyroidism, unspecified Status: Chronic Assessment and Plan: Continue home levothyroxine. Subjective Date/time seen: 07/12/19 10:00 Interval history: Ms. Atwood is a 78yo F with CLL admitted for anemia. She reports some arthritic pain to bilateral knees but otherwise feels well this morning. She denies chest pain, shortness of breath, or calf tenderness. She is tolerating oral intake without nausea or vomiting. She notes that Dr Castellon plans to see her this afternoon and is hopeful for discharge later today. Exam Narrative: Exam Narrative: General: Female resting supine in bed in no acute distress. HEENT: Normocephalic, atraumatic, EOMI, scleral icterus. Neck: Supple. Chest: Lungs clear to auscultation all lyon. Respirations are even and nonlabored. Tolerating room air. Heart: Heart rate and rhythm regular. Abdomen: Soft nontender, nondistended. Bowel sounds present. Skin: Warm, dry, jaundiced. Extremities: Peripheral pulses intact. No edema, erythema, or pain to palpation. Neurologic: No focal neurological deficits noted. Speech is clear. Objective Data Vital Signs Vital Signs: Vital Signs - 24 hr 07/11/19 11:10 07/11/19 11:25 07/11/19 12:25 Temperature 97.1 F L 97.2 F L 97.0 F L Pulse Rate 84 81 80 Respiratory Rate 16 16 16 Blood Pressure 150/72 H 121/59 L 125/62 Pulse Oximetry 99 97 98 07/11/19 13:25 07/11/19 14:25 07/11/19 15:50 Temperature 97.1 F L 97.8 F 97.2 F L Pulse Rate 83 89 79 Respiratory Rate 17 17 16 Blood Pressure 120/55 L 111/47 L 128/62 Pulse Oximetry 98 99 99 07/11/19 16:05 07/11/19 17:05 07/11/19 18:05 Temperature 97.5 F L 97.3 F L 98.3 F Pulse Rate 79 83 83 Respiratory Rate 16 15 15 Blood Pressure 128/62 136/67 117/60 Pulse Oximetry 99 98 97 07/11/19 18:18 07/11/19 18:40 07/11/19 21:50 Temperature 97.5 F L 97.7 F Pulse Rate 82 84 77 Respiratory Rate 16 16 Blood Pressure 120/51 L 120/54 L Pulse Oximetry 97 98 07/12/19 05:49 07/12/19 09:45 Temperature 97.1 F L Pulse Rate 73 78 Respiratory Rate 16 Blood Pressure 122/59 L Pulse Oximetry 98 Intake/Output Intake/Output: Intake & Output 07/09/19 07/10/19 07/11/19 07/12/19 23:59 23:59 23:59 23:59 Intake Total 1684 2834 3831 540 Output Total 1900 1850 2150 1200 Balance 688 246 8476 -660 Meds/Results Medications: Active Medications Generic Name Dose Route Start Last Admin Trade Name Freq PRN Reason Stop Dose Admin Acebu
--- NOTE | 2019-07-12 13:18 | WPDONCPN ---
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 Can be discharged today 2. F/u with Dr. Castellon in one week 3. Send pt home on Prednisone 20 mg daily and Acyclovir 300 mg daily 4. She can start her Venetoclax on Monday 5. office to call for lab orders (2) CLL (chronic lymphocytic leukemia): Code(s): C91.10 - Chronic lymphocytic leukemia of B-cell type not having achieved remission Status: Chronic Assessment and Plan: no clinical signs of leukemia improved blood counts less hemolysis Review of Systems Review of Systems All systems reviewed & are unremarkable except as noted in HPI and below Exam Const: General: cooperative, no acute distress, anxious and ill appearing; No confusion Nutritional Appearance: average body habitus Orientation/consciousness: patient oriented x3 and No confusion HENMT: General nose exam: Normal nares present Mouth: Yes Normal oral and palatal mucosa present, Yes oropharynx normal and Yes moist mucous membranes Teeth and gingiva: dentition normal Eyes: General: appearance normal, both eyes and all related structures Sclera: scleral abnormality EOM: EOMs intact bilaterally Neck: Neck: full ROM, supple and no JVD Thyroid: thyroid normal Lymphatic: no lymphadenopathy noted Resp: Effort & Inspection: normal respiratory effort Auscultation: clear to auscultation bilaterally Cardio: Rate: regular rate Rhythm: regular rhythm GI: Inspection: normal to inspection Auscultation: normal bowel sounds Rectal Exam: deferred Skin: General skin exam: normal color, no rashes or lesions noted, dry skin, jaundice and pallor Neuro: General: patient oriented x3, gait normal and No confusion Cranial nerves: Yes CN's II-XII intact bilaterally and Yes Normal hearing present Cognition (Neuro): normal cognition Speech: normal speech Motor exam (neuro): Abnormal motor strength present Extrem: General: normal to inspection, no pedal edema and normal gait Psych: Mental Status: mental status grossly normal Affect: Anxious affect present Objective Data Vital Signs Vital Signs: Vital Signs - 24 hr 07/11/19 13:25 07/11/19 14:25 07/11/19 15:50 Temperature 36.2 C L 36.6 C 36.2 C L Pulse Rate 83 89 79 Respiratory Rate 17 17 16 Blood Pressure 120/55 L 111/47 L 128/62 Pulse Oximetry 98 99 99 07/11/19 16:05 07/11/19 17:05 07/11/19 18:05 Temperature 36.4 C L 36.3 C L 36.8 C Pulse Rate 79 83 83 Respiratory Rate 16 15 15 Blood Pressure 128/62 136/67 117/60 Pulse Oximetry 99 98 97 07/11/19 18:18 07/11/19 18:40 07/11/19 21:50 Temperature 36.4 C L 36.5 C Pulse Rate 82 84 77 Respiratory Rate 16 16 Blood Pressure 120/51 L 120/54 L Pulse Oximetry 97 98 07/12/19 05:49 07/12/19 09:45 Temperature 36.2 C L Pulse Rate 73 78 Respiratory Rate 16 Blood Pressure 122/59 L Pulse Oximetry 98 Intake/Output Intake/Output: Intake & Output 07/09/19 07/10/19 07/11/19 07/12/19 23:59 23:59 23:59 23:59 Intake Total 2544 / 2544 2834 / 2834 3831 / 3831 540 / 540 Output Total 1900 / 1900 1850 / 1850 2150 / 2150 1200 / 1200 Balance 644 / 644 984 / 984 1681 / 1681 -660 / -660 Meds/Results Medications: Active Medications Generic Name Dose Route Start Last Admin Trade Name Freq PRN Reason Stop Dose Admin Acebutolol HCl 200 mg 07/08/19 22:45 07/12/19 09:45 Sectral PO 200 mg BID LUZMA Administration Fluticasone Propionate 2 spray 07/09/19 09:00 07/12/19 09:43 Flonase 0.05% Nasal [place] NASAL 2 spray DAILY LUZMA Administration Folic Acid 1 mg 07/09/19 09:00 07/12/19 09:44 Folic Acid Inj IV PUSH 1 mg QAM LUZMA Administration Hydrochlorothiazide 25 mg 07/09/19 09:00 07/12/19
--- NOTE | 2019-07-12 14:40 | PM.DS ---
DS: Diagnosis Admitting Diagnosis Admitting Diagnosis: Other autoimmune hemolytic anemias Discharge Diagnosis (1) Symptomatic anemia: Code(s): D64.9 - Anemia, unspecified Status: Acute Assessment and Plan: Date of Service 07/12/19 Ms. Atwood is a pleasant 78yo F with chronic lymphocytic leukemia (follows with Dr Castellon), hypertension, and hypothyroidism who presented to the ED due to weakness and Hgb 5.7 on outpatient labs. She had contacted Dr Castellon's office due to increased fatigue and outpatient labs were ordered. She was instructed to the ED due to the profound anemia. She has a past history of secondary autoimmune hemolytic anemia with CLL. LDH > 3000. She was evaluated by Dr Castellon and was started on IV solu-medrol due to hemolysis. She was also treated with IVIG x [address] Castellon's recommendations. She received a total of 4 units packed RBC transfusion during this admission. H&H low but stable at 10.2, 30.5% on day of discharge. She had no evidence of acute bleeding. She was maintained on GI prophylaxis with pantoprazole which was continued at discharge with ongoing steroid therapy. Dr Castellon also recommended 300mg daily acyclovir for zoster prophylaxis in her immunocompromised state. She was feeling much stronger and was hemodynamically stable for discharge 07/12/19. She will follow up with Dr Castellon in 1 week and PCP as needed. Consultation: Hematology/Oncology - Dr Castellon Acute on chronic anemia, autoimmune hemolytic anemia. No evidence of acute bleeding. H&H 5.7, 18.1% on 07/07 outpatient prior to arrival. She has received a total of 4 units packed RBC during this stay. Management per heme/onc - appreciate Dr Castellon's recommendations. She remains on IV solu-medrol here and will be discharged with oral prednisone. (2) CLL (chronic lymphocytic leukemia): Code(s): C91.10 - Chronic lymphocytic leukemia of B-cell type not having achieved remission Status: Chronic Assessment and Plan: Discharged with oral prednisone and oral acyclovir, follow up with Dr Castellon 1 week. (3) Hypertension: Qualifiers: Hypertension type: essential hypertension Qualified Code(s): I10 - Essential (primary) hypertension Code(s): I10 - Essential (primary) hypertension Status: Chronic Assessment and Plan: Blood pressures are stable maintained on home regimen with nifedipine, hydrochlorothiazide, acebutolol. (4) Hypothyroidism: Qualifiers: Hypothyroidism type: unspecified Qualified Code(s): E03.9 - Hypothyroidism, unspecified Code(s): E03.9 - Hypothyroidism, unspecified Status: Chronic Assessment and Plan: Continue home levothyroxine. DS: Summary Time Spent with Patient Time attestation: Total time spent providing and/or coordinating discharge services: 45 minutes Exam Narrative: Exam Narrative: General: Female resting supine in bed in no acute distress. HEENT: Normocephalic, atraumatic, EOMI, scleral icterus. Neck: Supple. Chest: Lungs clear to auscultation all lyon. Respirations are even and nonlabored. Tolerating room air. Heart: Heart rate and rhythm regular. Abdomen: Soft nontender, nondistended. Bowel sounds present. Skin: Warm, dry, jaundiced. Extremities: Peripheral pulses intact. No edema, erythema, or pain to palpation. Neurologic: No focal neurological deficits noted. Speech is clear. DS: Data Data Completed and Pending Labs on day of discharge: Labs from last 24 hours 07/12/19 07/12/19 07/11/19 04:52 04:52 20:55 WBC 8.1 RBC 2.92 L Hgb 10.2 L 10.8 L D Hct 30.5 L 31.4 L MCV 104.5 H D MCH 34.9 H D MCHC 33.4 RDW 27.5 H Plt Count 183 MPV 9.1 Immature Gran % (Auto) 1.5 H Neut % (Auto)
== END 2019-07-12 14:25 | disposition home or self-care (01) | DRG 809 ==
LOC: ANHED 15:49 → ANH2MED 17:44
PROVIDERS: Physician Assistant; Admitting Provider Family Medicine; Emergency Provider Emergency Medicine; PCP Internal Medicine Medical Oncology; Visit Provider Internal Medicine
DX: D59.1 Other autoimmune hemolytic anemias (principal); C91.10 Chronic lymphocytic leukemia of B-cell type not having achieved remission; D80.1 Nonfamilial hypogammaglobulinemia; I10 Essential (primary) hypertension; E03.9 Hypothyroidism, unspecified; K21.9 Gastro-esophageal reflux disease without esophagitis; E78.5 Hyperlipidemia, unspecified; K58.9 Irritable bowel syndrome, unspecified; Z90.710 Acquired absence of both cervix and uterus
CPT/HCPCS: 36415; 36430; 80048; 80053; 80076; 81001; 82248; 83615; 83735; 84100; 85014; 85018; 85025; 85610; 85730; 86850; 86860; 86870; 86880; 86900; 86901; 86902; 86922; 86970; 86971; 86972; 86978; 87086; 87088; 96374; 96375; 99285; A9270; J1459; J1940; J2920; J3475; J7040; J7050; P9016

== ENCOUNTER 2019-07-16 10:03 | Outpatient (CLI) | payer MEDICARE, OTHER, SELFPAY ==
[2019-07-16 17:25] LABS: Basophils Percent Auto 0.2 % (0.2-1.2); Eosinophils Absolute Auto 0.1 K/mm3 (0-0.3); Eosinophils Percent Auto 1.3 % (0-4.4); Hematocrit 28.1 % (37.0-47.0); Hemoglobin 9.5 g/dL (12.0-15.0); Immature Granulocyte Absolute 0.08 K/mm3 (0.00-0.031); Immature Granulocyte Percent A 0.9 % (0-0.5); Lymphocytes Absolute Auto 1.32 K/mm3 (0.9-3.2); Lymphocytes Percent Auto 14.7 % (18.3-44.2); Mean Corpuscular HGB Conc 33.8 g/dl (32-36); Mean Corpuscular Hemoglobin 37.5 pg (26-34); Mean Corpuscular Volume 111.1 fl (80-100); Mean Platelet Volume 9.2 fl (7.4-10.4); Monocytes Absolute Auto 1.2 K/mm3 (0.1-0.6); Monocytes Percent Auto 13.5 % (2.6-8.5); Neutrophils Absolute Auto 6.2 K/mm3 (1.3-6.7); Neutrophils Percent Auto 69.4 % (45.5-73.1); Platelet Count Result 167 k/mm3 (150-375); Red Blood Count 2.53 M/mm3 (4.2-5.4)
[2019-07-16 17:28] LABS: Alanine Aminotransferase 18 U/L (4-35); Albumin Level 3.8 g/dL (3.5-5.1); Alkaline Phosphatase 80 U/L (38-126); Aspartate Amino Transferase 29 U/L (14-36); Bilirubin,Total 7.4 mg/dL (0.2-1.3); Blood Urea Nitrogen 27 mg/dL (7-17); Calcium 8.8 mg/dL (8.4-10.2); Carbon Dioxide 29 mmol/L (22-30); Chloride 91 mmol/L (98-107); Estimated Glomerular Filt Rate > 60; Glucose 101 mg/dL (65-105); Phosphorus 3.3 mg/dL (2.5-4.5); Potassium 3.3 mmol/L (3.4-5.0); Sodium 125 mmol/L (137-145); Uric Acid 5.9 mg/dL (2.5-7.5)
[2019-07-16 17:54] LABS: Platelet Estimate Adequate (Adequate); Tear Drop Cells 1+ (NORMAL)
== END 2019-07-16 10:04 | disposition home or self-care (01) ==
LOC: ANHBWCLAB 10:07
PROVIDERS: PCP Internal Medicine Medical Oncology; Visit Provider Internal Medicine Medical Oncology
DX: C91.10 Chronic lymphocytic leukemia of B-cell type not having achieved remission (principal)
CPT/HCPCS: 36415; 80053; 84100; 84550; 85025

== ENCOUNTER 2019-08-08 10:54 | Outpatient (CLI) | payer MEDICARE, OTHER, SELFPAY ==
[2019-08-08 17:11] LABS: Blood Urea Nitrogen 18 mg/dL (7-17); Calcium 8.9 mg/dL (8.4-10.2); Carbon Dioxide 25 mmol/L (22-30); Chloride 93 mmol/L (98-107); Estimated Glomerular Filt Rate 48; Glucose 98 mg/dL (65-105); Potassium 4.1 mmol/L (3.4-5.0); Sodium 125 mmol/L (137-145)
== END 2019-08-08 10:55 | disposition home or self-care (01) ==
PROVIDERS: PCP Internal Medicine Medical Oncology; Visit Provider Internal Medicine Medical Oncology
DX: C91.10 Chronic lymphocytic leukemia of B-cell type not having achieved remission (principal); R19.7 Diarrhea, unspecified
CPT/HCPCS: 36415; 80048

== ENCOUNTER 2019-08-12 09:04 | Outpatient (RCR) | payer MEDICARE, OTHER, SELFPAY ==
[2019-07-15 17:27] LABS: Hematocrit 29.3 % (37.0-47.0); Hemoglobin 9.9 g/dL (12.0-15.0); Mean Corpuscular HGB Conc 33.8 g/dl (32-36); Mean Corpuscular Hemoglobin 36.7 pg (26-34); Mean Corpuscular Volume 108.5 fl (80-100); Mean Platelet Volume 8.8 fl (7.4-10.4); Platelet Count Result 164 k/mm3 (150-375); White Blood Count 8.9 K/mm3 (4.5-10.0)
[2019-07-15 17:29] LABS: Blood Urea Nitrogen 29 mg/dL (7-17); Calcium 8.6 mg/dL (8.4-10.2); Carbon Dioxide 29 mmol/L (22-30); Chloride 93 mmol/L (98-107); Estimated Glomerular Filt Rate > 60; Glucose 94 mg/dL (65-105); Potassium 3.4 mmol/L (3.4-5.0); Sodium 125 mmol/L (137-145); Uric Acid 7.4 mg/dL (2.5-7.5)
[2019-07-15 17:41] LABS: Hypochromasia 2+ (NORMAL); Platelet Estimate Adequate (Adequate)
[2019-07-15 17:42] LABS: Anisocytosis 1+ (NORMAL); Macrocytosis 1+ (NORMAL); Microcytosis 1+ (NORMAL)
[2019-07-22 17:25] LABS: Hematocrit 25.9 % (37.0-47.0); Hemoglobin 8.5 g/dL (12.0-15.0); Mean Corpuscular HGB Conc 32.8 g/dl (32-36); Mean Corpuscular Hemoglobin 40.1 pg (26-34); Mean Corpuscular Volume 122.2 fl (80-100); Mean Platelet Volume 9.5 fl (7.4-10.4); Platelet Count Result 163 k/mm3 (150-375); Red Blood Count 2.12 M/mm3 (4.2-5.4); Red Cell Distribution Width 21.2 % (11.5-14.5); White Blood Count 9.6 K/mm3 (4.5-10.0)
[2019-07-22 17:39] LABS: Blood Urea Nitrogen 17 mg/dL (7-17); Carbon Dioxide 29 mmol/L (22-30); Chloride 95 mmol/L (98-107); Estimated Glomerular Filt Rate 54; Glucose 75 mg/dL (65-105); Potassium 3.4 mmol/L (3.4-5.0); Sodium 127 mmol/L (137-145); Uric Acid 4.4 mg/dL (2.5-7.5)
[2019-07-22 17:48] LABS: Lymphocytes Absolute Manual 1.82 K/mm3 (1.1-4.5); Monocytes Absolute Manual 1.05 K/mm3 (0.1-0.90); Monocytes Percent Manual 11 % (3-9); Neutrophils Percent Manual 70 % (46-73); Nucleated Red Blood Cells 4 %; Total Cells Counted 100
[2019-07-22 17:49] LABS: Anisocytosis 3+ (NORMAL); Platelet Estimate Adequate (Adequate)
[2019-07-29 17:01] LABS: Basophils Percent Auto 0.5 % (0.2-1.2); Eosinophils Percent Auto 0.3 % (0-4.4); Hematocrit 29.2 % (37.0-47.0); Hemoglobin 9.6 g/dL (12.0-15.0); Immature Granulocyte Absolute 0.04 K/mm3 (0.00-0.031); Immature Granulocyte Percent A 0.5 % (0-0.5); Lymphocytes Absolute Auto 1.48 K/mm3 (0.9-3.2); Lymphocytes Percent Auto 20.1 % (18.3-44.2); Mean Corpuscular HGB Conc 32.9 g/dl (32-36); Mean Corpuscular Hemoglobin 40.7 pg (26-34); Mean Corpuscular Volume 123.7 fl (80-100); Mean Platelet Volume 9.5 fl (7.4-10.4); Monocytes Percent Auto 13.7 % (2.6-8.5); Neutrophils Absolute Auto 4.8 K/mm3 (1.3-6.7); Neutrophils Percent Auto 64.9 % (45.5-73.1); Nucleated Red Blood Cells Perc 0.4 % (0.0-0.2); Platelet Count Result 117 k/mm3 (150-375); Red Blood Count 2.36 M/mm3 (4.2-5.4); White Blood Count 7.4 K/mm3 (4.5-10.0)
[2019-07-29 17:18] LABS: Blood Urea Nitrogen 15 mg/dL (7-17); Carbon Dioxide 27 mmol/L (22-30); Chloride 96 mmol/L (98-107); Estimated Glomerular Filt Rate 54; Glucose 84 mg/dL (65-105); Potassium 4.1 mmol/L (3.4-5.0); Sodium 127 mmol/L (137-145); Uric Acid 3.9 mg/dL (2.5-7.5)
[2019-08-05 16:58] LABS: Basophils Percent Auto 0.3 % (0.2-1.2); Eosinophils Percent Auto 0.1 % (0-4.4); Hematocrit 30.9 % (37.0-47.0); Hemoglobin 10.5 g/dL (12.0-15.0); Immature Granulocyte Absolute 0.06 K/mm3 (0.00-0.031); Immature Granulocyte Percent A 0.6 % (0-0.5); Lymphocytes Absolute Auto 0.82 K/mm3 (0.9-3.2); Mean Corpuscular Hemoglobin 40.4 pg (26-34); Mean Corpuscular Volume 118.8 fl (80-100); Mean Platelet Volume 9.2 fl (7.4-10.4); Monocytes Absolute Auto 0.9 K/mm3 (0.1-0.6); Monocytes Percent Auto 9.1 % (2.6-8.5); Neutrophils Absolute Auto 8.5 K/mm3 (1.3-6.7); Neutrophils Percent Auto 81.9 % (45.5-73.1); Nucleated Red Blood Cells Perc 0.3 % (0.0-0.2); Platelet Count Result 159 k/mm3 (150-375); Red Cell Distribution Width 14.4 % (11.5-14.5); White Blood Count 10.3 K/mm3 (4.5-10.0)
[2019-08-05 17:17] LABS: Blood Urea Nitrogen 15 mg/dL (7-17); Calcium 8.9 mg/dL (8.4-10.2); Carbon Dioxide 28 mmol/L (22-30); Chloride 88 mmol/L (98-107); Estimated Glomerular Filt Rate 54; Glucose 101 mg/dL (65-105); Potassium 3.8 mmol/L (3.4-5.0); Sodium 124 mmol/L (137-145); Uric Acid 4.1 mg/dL (2.5-7.5)
[2019-08-12 16:40] LABS: Hematocrit 30.6 % (37.0-47.0); Hemoglobin 10.3 g/dL (12.0-15.0); Mean Corpuscular HGB Conc 33.7 g/dl (32-36); Mean Corpuscular Hemoglobin 40.7 pg (26-34); Mean Corpuscular Volume 120.9 fl (80-100); Mean Platelet Volume 9.3 fl (7.4-10.4); Platelet Count Result 136 k/mm3 (150-375); Red Blood Count 2.53 M/mm3 (4.2-5.4); Red Cell Distribution Width 15.7 % (11.5-14.5); White Blood Count 5.6 K/mm3 (4.5-10.0)
[2019-08-12 17:06] LABS: Blood Urea Nitrogen 15 mg/dL (7-17); Calcium 8.7 mg/dL (8.4-10.2); Carbon Dioxide 28 mmol/L (22-30); Chloride 96 mmol/L (98-107); Estimated Glomerular Filt Rate 54; Glucose 77 mg/dL (65-105); Potassium 3.9 mmol/L (3.4-5.0); Sodium 129 mmol/L (137-145); Uric Acid 4.2 mg/dL (2.5-7.5)
== END 2019-10-13 23:59 | disposition home or self-care (01) ==
LOC: ANHBWCLAB 09:04
PROVIDERS: PCP Internal Medicine Medical Oncology; Visit Provider Internal Medicine Medical Oncology
DX: C91.01 Acute lymphoblastic leukemia, in remission (principal)
CPT/HCPCS: 36415; 80048; 84550; 85025; 85027

== ENCOUNTER 2019-10-31 13:21 | Outpatient (CLI) | payer MEDICARE, OTHER, SELFPAY ==
--- NOTE | ~2019-10-31 | US_ITS ---
EXAMINATION: US venous doppler UE RT EXAM DATE: 10/31/2019 14:00 INDICATION: Right arm swelling. TECHNIQUE: Multiple grayscale, color flow, Doppler sonographic images of the right upper extremity ve ins obtained by technologist. Compression was performed where able. There is no prior study for gerda ng. FINDINGS: Right upper extremity: Jugular vein: ------------> Normal. Subclavian vein: --------> Normal. Axillary vein:------------> Normal. Brachial vein:-----------> Normal. Basilic vein: ------------> Normal. Cephalic vein: ----------> Normal. Radial vein: ------------> Normal. Ulnar vein: > Normal. IMPRESSION: No deep venous thrombosis of the right upper extremity. Reviewed, dictated and finalized at location B.
== END 2019-10-31 13:22 | disposition home or self-care (01) ==
PROVIDERS: PCP Internal Medicine Medical Oncology; Visit Provider Internal Medicine Medical Oncology
DX: M79.89 Other specified soft tissue disorders (principal)
CPT/HCPCS: 93971

== ENCOUNTER 2020-09-14 13:27 | Outpatient (CLI) | payer MEDICARE, OTHER, SELFPAY ==
--- NOTE | ~2020-09-14 | XR_ITS ---
XR knee RT min 4V DATE: 09/14/2020 13:52 INDICATION: Bilateral knee pain TECHNIQUE: 4 views COMPARISON: None FINDINGS: There is mild to moderate suprapatellar knee joint effusion. Diffuse osteopenia. No fracture or dislocation, periosteal reaction or bone destruction is detected. There is severe narrowing at the medial compartment joint space with prominent periarticular spurring consistent with severe medial compartment osteoarthritic arthritis. There is moderate osteoarthritis at the patellofemoral compartment. There is approximately 6 mm lateral subluxation of the femoral tibial joint. There is minimal chondrocalcinosis evident at the lateral compartment. IMPRESSION: Severe osteoarthritis at the medial compartment and to a lesser extent patellofemoral com partment Slight chondrocalcinosis Mild to moderate suprapatellar knee joint effusion Approximately 6 mm lateral subluxation at the femoral tibial joint Diffuse osteopenia Reviewed, dictated and finalized at location A. IMPRESSION: Severe osteoarthritis at the medial compartment and to a lesser ext ent patellofemoral compartment Slight chondrocalcinosis Mild to moderate suprapatellar knee joint effusion Approximately 6 mm lateral subluxation at the femoral tibial joint Diffuse osteopenia
--- NOTE | ~2020-09-14 | XR_ITS ---
XR knee LT min 4V DATE: 09/14/2020 13:52 INDICATION: Knee pain TECHNIQUE: Standing AP, PA and can standing lateral view. [place] view. COMPARISON: 05/14/2009 left knee FINDINGS: There is dramatic change since 05/14/2009. There is varus deformity. There is diffuse osteopenia. There is lateral subluxation at the femoral tibial joint. There is virtual obliteration of medial compartment joint space with prominent periarticular spurring of the medial femoral condyle. There is prominent osteoarthritic change at the patellofemoral joint and to a lesser extent lateral c ompartment joint space. Mild chondrocalcinosis. Mild suprapatellar knee joint effusion is suggested. No fracture, dislocation, periosteal reaction or bone destruction or radiopaque intra-articular loose body is evident. IMPRESSION: Tricompartment osteophytes, particularly severe at the medial compartment Varus deformity and lateral subluxation at the femoral tibial joint Mild chondrocalcinosis Osteopenia Reviewed, dictated and finalized at location A. IMPRESSION: Tricompartment osteophytes, particularly severe at the medial tessy rtment Varus deformity and lateral subluxation at the femoral tibial joint Mild chondrocalcinosis Osteopenia
== END 2020-09-14 13:28 | disposition home or self-care (01) ==
PROVIDERS: PCP Internal Medicine; Visit Provider Internal Medicine
DX: M25.561 Pain in right knee (principal); M25.562 Pain in left knee; M25.762 Osteophyte, left knee; M92.502 Unspecified juvenile osteochondrosis, left leg; M11.262 Other chondrocalcinosis, left knee; M17.0 Bilateral primary osteoarthritis of knee; M11.261 Other chondrocalcinosis, right knee; M25.461 Effusion, right knee; S83.191A Other subluxation of right knee, initial encounter; M85.89 Other specified disorders of bone density and structure, multiple sites
CPT/HCPCS: 73564

== ENCOUNTER → 2021-05-29 08:53 | Outpatient (CLI) | payer MEDICARE, OTHER, SELFPAY ==
--- NOTE | ~2021-05-29 | XR_ITS ---
EXAMINATION: XR hand LT min 3V DATE: 05/29/2021 09:18 INDICATION: Left hand pain. TECHNIQUE: 3 views of left hand were obtained. COMPARISON: None. FINDINGS: Scapholunate dissociation is noted. There is dorsal tilt of lunate, consistent with dorsal intercalated segmental instability (DISI). There is radial subluxation of the third and fourth distal phalanges and ulnar subluxation of second distal phalanx with respect to the middle phalanges. There is severe osteoarthritis of radioscaphoid joint and first carpometacarpal joint. There is moderate o steoarthritis of distal radioulnar joint. There is mild osteoarthritis of first metacarpophalangeal j oint and some of the interphalangeal joints. There is severe osteoarthritis of first interphalangeal joint and second through fifth distal interphalangeal joints and moderate osteoarthritis of second an d fifth proximal interphalangeal joints. 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 Reviewed, dictated and finalized at location A. [employer]
== END ==
PROVIDERS: PCP Physician Assistant; Referring Provider Physician Assistant; Visit Provider Physician Assistant
DX: M19.042 Primary osteoarthritis, left hand (principal); M18.12 Unilateral primary osteoarthritis of first carpometacarpal joint, left hand; S63.203A Unspecified subluxation of left middle finger, initial encounter; S63.205A Unspecified subluxation of left ring finger, initial encounter; S63.072A Subluxation of distal end of left ulna, initial encounter
CPT/HCPCS: 73130

== ENCOUNTER 2021-07-01 09:17 | Emergency (ER) | payer MEDICARE, OTHER, SELFPAY ==
[2021-07-01] VITALS (7 sets, daily range): BP systolic 138–186; BP diastolic 65–92; PULSE 68–79; RESP 16; TEMP 36.5–36.6; O2SAT 96–98
--- NOTE | ~2021-07-01 | XR_ITS ---
XR shoulder RT min 2V DATE: 07/01/2021 10:00 INDICATION: Chronic right shoulder pain. No injury. TECHNIQUE: 4 views COMPARISON: None FINDINGS: There is osteoarthritic change including prominent spurring and joint space height at the r ight glenohumeral joint. No fracture or dislocation, periosteal reaction or bone destruction. There is Hill-Sachs deformity of the right humerus. There is some soft tissue calcifications suggesting calcific tendinitis of the rotator cuff. Diffuse osteopenia. IMPRESSION: Severe glenohumeral osteoarthritis Calcific tendinitis Osteopenia Reviewed, dictated and finalized at location A. CARGOMAN
--- NOTE | 2021-07-01 09:37 | ED.UPPEXIN ---
HPI - Extremity Injury (Upper) General Chief Complaint: Extremity Injury, Upper Stated Complaint: R arm pain Time Seen by Provider: 07/01/21 09:26 Source: patient and family Mode of arrival: ambulatory Limitations: no limitations History of Present Illness HPI narrative: Patient is 80 years old white female presents with gradual increase of pain of the right shoulder radiating to the right arm and for for 1 month. Patient currently on aspirin, diclofenac cream, tramadol, and prednisone. Patient also had history of right shoulder rotator cuff surgery years ago. History of chronic arthritis of the knees, is not a candidate for surgery because of CLL. Patient denies recent trauma, fever, chills, nausea, vomiting, chest pain, shortness of breath, back pain or neck pain or headache. Related Data Home Medications Medication Instructions Recorded Confirmed acebutolol 200 mg PO BID 07/08/19 02/08/21 fluticasone propionate 2 spray INTRANASAL DAILY 07/08/19 02/08/21 hydrochlorothiazide 25 mg PO DAILY 07/08/19 02/08/21 levothyroxine 88 mcg PO DAILY 07/08/19 02/08/21 nifedipine 30 mg PO DAILY 07/08/19 02/08/21 ondansetron HCl 4 mg PO Q6H PRN 07/08/19 02/08/21 tramadol 50 mg PO Q6H PRN 07/08/19 02/08/21 zolpidem 5 mg PO HS PRN 07/08/19 02/08/21 alprazolam 0.5 mg tablet 0.5 mg PO DAILY 10/12/20 02/08/21 aspirin 81 mg tablet,delayed 81 mg PO DAILY 10/12/20 02/08/21 release dicyclomine 20 mg tablet 20 mg PO QID 10/12/20 02/08/21 fluconazole 150 mg tablet 150 mg PO DAILY 10/12/20 02/08/21 losartan 25 mg tablet 25 mg PO DAILY 10/12/20 02/08/21 pravastatin 20 mg tablet 20 mg PO DAILY 10/12/20 02/08/21 Allergies Allergy/AdvReac Type Severity Reaction Status Date / Time sulfamethoxazole Allergy Unknown N&V Verified 01/07/21 13:53 trimethoprim Allergy Unknown N&V Verified 01/07/21 13:53 Review of Systems Review of Systems: CONSTITUTIONAL: Denies fever, chills, or sweats. EYES: Denies visual changes, redness, or discharge. ENT: Denies rhinorrhea, congestion, sore throat, or otalgia. CARDIOVASCULAR: Denies chest pain, palpitations, or edema. RESPIRATORY: Denies cough or dyspnea. GASTROINTESTINAL: Denies abdominal pain, nausea, vomiting, or diarrhea. GENITOURINARY: Denies dysuria or hematuria. SKIN: Denies rash or itching. MUSCULOSKELETAL: Right shoulder, knees and hands pain NEUROLOGIC: Denies headache, numbness, or weakness. PSYCHIATRIC: Denies anxiety or depression. [facility] Past Medical History Medical History (Updated 07/01/21 @ 11:04 by Matthias Leone MD) CLL (chronic lymphocytic leukemia) GERD (gastroesophageal reflux disease) Hyperlipidemia Hypertension Hypothyroidism Irritable bowel syndrome Alternates between constipation and diarrhea SVT (supraventricular tachycardia) Surgical History Surgical History H/O hemorrhoidectomy She believes in her 20s. H/O: hysterectomy History of rectal surgery benign rectal tumor resection age 18yo Hx of appendectomy At time of her hysterectomy Family History Family History Grandparent Cerebrovascular accident Family history of coronary artery disease Father Family history of kidney disease, Onset Age: 83 Family history of coronary artery disease, Onset Age: 83 Social History Social History Smoking status: Never smoker Alcohol intake: never Substance use: never Substance use type: does not use Gender identity (if verbalized by the patient): Female Spiritual care concerns: No Agree to blood products: Yes Exam Narrative: General appearance: Well-developed, well-nourished Skin: Normal color Head: Normocephalic, nontraumatic Eyes: Clear conjunctiva ENT: Oropharynx normal, ears normal, nose normal Neck: Supple, nontender Chest and respiratory: Airway patent, no respiratory distress, no
[2021-07-01] MEDS: MORPHINE SULFATE INJ (*CRX) 10 MG/ML AMP 4 MG IM (11:16)
[2021-07-01] MEDS: ONDANSETRON HCL ODT 4 MG TABLET 8 MG PO (11:17)
== END 2021-07-01 11:24 | disposition home or self-care (01) ==
PROVIDERS: Emergency Provider Emergency Medicine; PCP Internal Medicine
DX: M19.011 Primary osteoarthritis, right shoulder (principal); M17.0 Bilateral primary osteoarthritis of knee; C91.10 Chronic lymphocytic leukemia of B-cell type not having achieved remission; E78.5 Hyperlipidemia, unspecified; I10 Essential (primary) hypertension; E03.9 Hypothyroidism, unspecified; K58.9 Irritable bowel syndrome, unspecified; K21.9 Gastro-esophageal reflux disease without esophagitis; M85.811 Other specified disorders of bone density and structure, right shoulder; M75.31 Calcific tendinitis of right shoulder; Z79.82 Long term (current) use of aspirin
CPT/HCPCS: 73030; 96372; 99283; A9270; J2270

== ENCOUNTER 2021-07-11 11:44 | Inpatient (IN) | payer MEDICARE, OTHER, SELFPAY ==
[2021-07-11] VITALS (9 sets, daily range): BP systolic 130–158; BP diastolic 69–88; PULSE 89–102; RESP 16–28; TEMP 36.6–37.6; O2SAT 76–98; BMI 25.6
--- NOTE | ~2021-07-11 | XR_ITS ---
EXAMINATION: XR chest 1V portable DATE: 07/16/2021 05:33 INDICATION: COVID pneumonia TECHNIQUE: frontal and lateral views of the chest were obtained. COMPARISON: Chest radiograph dated 07/15/21 FINDINGS: No significant change in diffuse bilateral airspace opacities consistent with pneumonia. No pleural e ffusion or pneumothorax. Heart size is normal. IMPRESSION: 1. No significant change in diffuse bilateral lung disease consistent with pneumonia. Reviewed, dictated and finalized at location A. IMPRESSION: 1. No significant change in diffuse bilateral lung disease consistent with pneu monia.
--- NOTE | ~2021-07-11 | XR_ITS ---
EXAMINATION: XR chest 1V portable DATE: 07/14/2021 05:54 INDICATION: COVID pneumonia TECHNIQUE: frontal view of the chest was obtained. COMPARISON: Chest radiograph dated 07/13/2021 FINDINGS: Increasing patchy airspace opacities throughout both lungs. Likely tiny bilateral pleural effusions. No pneumothorax. The cardiomediastinal silhouette is normal. Severe spondylosis and severe right kwasi ohumeral osteoarthritis. IMPRESSION: 1. Increasing to lateral lung disease consistent with worsening pneumonia and/or pulmonary edema. 2. Tiny bilateral pleural effusions. Reviewed, dictated and finalized at location A. IMPRESSION: 1. Increasing to lateral lung disease consistent with worsening pneumonia and/o r pulmonary edema. 2. Tiny bilateral pleural effusions.
--- NOTE | ~2021-07-11 | XR_ITS ---
XR chest 1V portable 07/20/2021 08:44 Indication: Pneumonia Procedure: AP portable chest Comparison: Comparison to multiple prior studies sequentially, with oldest reviewed study dated 07/16. Findings: Improving extensive bilateral airspace disease. No significant effusion or pneumothorax. He art size normal. There is atherosclerosis. No acute osseous abnormality. Impression: 1: Improving bilateral airspace disease, consistent with resolving pneumonia. Reviewed, dictated and finalized at location A. Impression: 1: Improving bilateral airspace disease, consistent with resolving pneumonia.
--- NOTE | ~2021-07-11 | CT_ITS ---
EXAMINATION: CTA chest PE protocol DATE: 07/11/2021 14:46 INDICATION: Chronic lymphocytic leukemia presenting with hypoxia and weakness TECHNIQUE: Computed tomography (CT) pulmonary angiogram of the chest was performed with 100 mL Omnipa que-350 intravenous contrast. Additional 3D reconstructions utilizing coronal maximum intensity proje ction (MIP) were performed. Automated exposure control and iterative reconstruction technique were em ployed. The dose-length product was 295.05 mGy-cm. COMPARISON: None FINDINGS: Excellent contrast opacification of the pulmonary arteries. There is mild streak artifact from dense contrast in the superior vena cava and right atrium. Mild scattered respiratory motion artifact which does not significantly limit evaluation. No pulmonary embolism. There are new patchy groundglass opa cities throughout both lungs. No pleural effusion or pneumothorax. Calcified nodule at the left upper lobe and calcified left hilar and mediastinal lymph nodes along with multiple splenic calcific lesio ns, all consistent with old granulomatous disease. Heart size is normal. No pericardial effusion. Tho racic aorta is normal in caliber with no dissection. No pathologically enlarged thoracic lymphadenopa thy. Moderate-sized sliding-type hiatal hernia. Visualized upper abdomen is otherwise unremarkable. T horacic kyphosis with severe spondylosis. IMPRESSION: 1. No pulmonary embolism. 2. Patchy bilateral groundglass opacities throughout both lungs which could be due to pulmonary edema or pneumonia including COVID pneumonia. 3. Moderate-sized sliding-type hiatal hernia. Reviewed, dictated and finalized at location A.
--- NOTE | ~2021-07-11 | XR_ITS ---
XR chest 1V portable 07/19/2021 05:30 Indication: CovidPneumonia Procedure: AP portable chest Comparison: Comparison to multiple prior studies sequentially, with oldest reviewed study dated 07/15. Findings: Persistent extensive bilateral airspace disease, consistent with pneumonia. No significant interval change. No significant effusion or pneumothorax. Heart size normal. No acute osseous abnorma lity. Impression: 1: Stable diffuse bilateral airspace disease, consistent with pneumonia. Reviewed, dictated and finalized at location A. Impression: 1: Stable diffuse bilateral airspace disease, consistent with pneumonia.
--- NOTE | ~2021-07-11 | XR_ITS ---
XR chest 1V portable 07/18/2021 05:14 Indication: CovidPneumonia Procedure: AP portable chest Comparison: Comparison to multiple prior studies sequentially, with oldest reviewed study dated 07/14. Findings: Bilateral extensive airspace disease, compatible with pneumonia. No significant interval ch kaycee. Heart size normal. No acute osseous abnormality. Impression: 1: Stable extensive bilateral airspace disease, compatible with pneumonia. Reviewed, dictated and finalized at location A. Impression: 1: Stable extensive bilateral airspace disease, compatible with pneumonia.
--- NOTE | ~2021-07-11 | XR_ITS ---
XR chest 1V portable 07/15/2021 08:17 Indication: CovidPneumonia Procedure: AP portable chest Comparison: Comparison to multiple prior studies sequentially, with oldest reviewed study dated 07/13. Findings: Diffuse bilateral airspace disease, consistent with pneumonia. No significant interval cummins ge. Heart size normal. No pleural effusion or pneumothorax. Impression: 1: Diffuse bilateral airspace disease, consistent with pneumonia. No significant change. Reviewed, dictated and finalized at location B. Impression: 1: Diffuse bilateral airspace disease, consistent with pneumonia. No significan t change.
--- NOTE | ~2021-07-11 | XR_ITS ---
XR chest 1V portable 07/17/2021 05:53 Indication: Pneumonia Procedure: AP portable chest Comparison: Comparison to multiple prior studies sequentially, with oldest reviewed study dated 07/13. Findings: Diffuse bilateral airspace disease. Heart size normal. No significant effusion or pneumotho rax. No acute osseous abnormality. Impression: 1: Diffuse bilateral airspace disease which may represent edema or pneumonia. No significant change. Reviewed, dictated and finalized at location A. Impression: 1: Diffuse bilateral airspace disease which may represent edema or pneumonia. N o significant change.
--- NOTE | ~2021-07-11 | XR_ITS ---
EXAMINATION: XR chest 1V portable DATE: 07/13/2021 05:47 INDICATION: Pneumonia TECHNIQUE: frontal view of the chest was obtained. COMPARISON: Chest CT dated 07/11/2021 FINDINGS: Persistent patchy airspace opacities throughout the both lungs greatest in the bilateral mid to upper lung zones. These appear new since shoulder radiographs obtained on 07/01/2021. No pleural effusion or pneumothorax. The cardiomediastinal silhouette is normal. Severe spondylosis. IMPRESSION: 1. Persistent patchy bilateral lung disease which could represent pneumonia particularly COVID pneumo davie or less likely pulmonary edema. Reviewed, dictated and finalized at location A. IMPRESSION: 1. Persistent patchy bilateral lung disease which could represent pneumonia par ticularly COVID pneumonia or less likely pulmonary edema.
--- NOTE | 2021-07-11 12:57 | ED.WEAKNESS ---
HPI - Weakness General Chief complaint: Weakness Stated complaint: weak, cough Time Seen by Provider: 07/11/21 12:31 Source: patient History of Present Illness HPI Narrative: Patient presents with weakness. Reports has been feeling weak for the past 3 days getting progressively worse. She saw her oncologist on Monday was told that she has a infection in her hand was started on cephalexin instructed to follow-up with her oncologist on Monday if her symptoms are not improving. She progressive more weak so she came to the ER for evaluation. She does report shortness of breath. When getting up and walking around. She denies any focal areas of pain such as chest pain or abdominal pain denies any nausea vomiting or diarrhea she denies any fevers. She does report mild nonproductive cough but denies any known sick contacts. Related Data Home Medications Medication Instructions Recorded Confirmed acebutolol 200 mg PO BID 07/08/19 07/11/21 fluticasone propionate 2 spray INTRANASAL DAILY 07/08/19 07/11/21 hydrochlorothiazide 25 mg PO DAILY 07/08/19 07/11/21 levothyroxine 88 mcg PO DAILY 07/08/19 07/11/21 nifedipine 30 mg PO DAILY 07/08/19 07/11/21 ondansetron HCl 4 mg PO Q6H PRN 07/08/19 07/11/21 tramadol 100 mg PO Q6H PRN 07/08/19 07/11/21 zolpidem 5 mg PO HS PRN 07/08/19 07/11/21 alprazolam 0.5 mg tablet 0.5 mg PO TID PRN 10/12/20 07/11/21 aspirin 81 mg tablet,delayed 81 mg PO DAILY 10/12/20 07/11/21 release dicyclomine 20 mg tablet 20 mg PO QID PRN 10/12/20 07/11/21 fluconazole 150 mg tablet 150 mg PO DAILY 10/12/20 07/11/21 losartan 25 mg tablet 25 mg PO DAILY 10/12/20 07/11/21 pravastatin 20 mg tablet 20 mg PO DAILY 10/12/20 07/11/21 prednisone 10 mg PO DAILY 07/11/21 07/11/21 Allergies Allergy/AdvReac Type Severity Reaction Status Date / Time barium sulfate Allergy Unknown Unknown Verified 07/11/21 18:05 fexofenadine Allergy Unknown Unknown Verified 07/11/21 18:05 quinapril Allergy Unknown Cough Verified 07/11/21 18:05 sulfamethoxazole Allergy Unknown N&V Verified 07/11/21 18:06 trimethoprim Allergy Unknown N&V Verified 07/11/21 18:06 Review of Systems Review of Systems: CONSTITUTIONAL: Denies fever, chills, or sweats. EYES: Denies visual changes, redness, or discharge. ENT: Denies rhinorrhea, congestion, sore throat, or otalgia. CARDIOVASCULAR: Denies chest pain, palpitations, or edema. RESPIRATORY: Reports cough and shortness of breath GASTROINTESTINAL: Denies abdominal pain, nausea, vomiting, or diarrhea. GENITOURINARY: Denies dysuria or hematuria. SKIN: Reports redness to her left wrist MUSCULOSKELETAL: Denies back pain, joint pain, or myalgia. NEUROLOGIC: Denies headache, numbness, dizziness, or focal weakness. PSYCHIATRIC: Denies anxiety or depression. All systems reviewed & are unremarkable except as noted in HPI and below PMFSH Past Medical History Medical History (Updated 07/11/21 @ 16:30 by CONNIE Sandoval) CLL (chronic lymphocytic leukemia) GERD (gastroesophageal reflux disease) Hyperlipidemia Hypertension Hypothyroidism Irritable bowel syndrome Alternates between constipation and diarrhea SVT (supraventricular tachycardia) Surgical History Surgical History H/O hemorrhoidectomy She believes in her 20s. H/O: hysterectomy History of rectal surgery benign rectal tumor resection age 18yo Hx of appendectomy At time of her hysterectomy Family History Family History Grandparent Cerebrovascular accident Family history of coronary artery disease Father Family history of kidney disease, Onset Age: 83 Family history of coronary artery disease, Onset Age: 83 Social History Social History Smoking status: Never smoker Alcohol intake: never Substance use: never Substance use type: does not use
--- NOTE | 2021-07-11 12:58 | ECG_ITS ---
Measurements Intervals [place] Rate: 87 P: 50 CA: 174 QRS: -1 QRSD: 102 T: 32 QT: 349 QTc: 420 Interpretive Statements SINUS RHYTHM MILDLY POOR R-WAVE PROGRESSION BUT OTHERWISE NORMAL EKG NO PREVIOUS ECG AVAILABLE FOR COMPARISON Electronically Signed On 07-11-2021 17:01:22 CDT by Sandra Cerrato M.D.
[2021-07-11 13:17] LABS: Basophils Percent Auto 0.2 % (0.2-1.2); Eosinophils Percent Auto 0.2 % (0-4.4); Hematocrit 35.7 % (37.0-47.0); Hemoglobin 12.1 g/dL (12.0-15.0); Immature Granulocyte Absolute 0.11 K/mm3 (0.00-0.031); Immature Granulocyte Percent A 0.9 % (0-0.5); Lymphocytes Absolute Auto 0.56 K/mm3 (0.9-3.2); Lymphocytes Percent Auto 4.4 % (18.3-44.2); Mean Corpuscular HGB Conc 33.9 g/dl (32-36); Mean Corpuscular Hemoglobin 32.3 pg (26-34); Mean Corpuscular Volume 95.2 fl (80-100); Mean Platelet Volume 9.3 fl (7.4-10.4); Monocytes Absolute Auto 0.4 K/mm3 (0.1-0.6); Monocytes Percent Auto 3.2 % (2.6-8.5); Neutrophils Absolute Auto 11.7 K/mm3 (1.3-6.7); Neutrophils Percent Auto 91.1 % (45.5-73.1); Platelet Count Result 262 k/mm3 (150-375); Red Blood Count 3.75 M/mm3 (4.2-5.4); Red Cell Distribution Width 14.6 % (11.5-14.5); White Blood Count 12.9 K/mm3 (4.5-10.0)
[2021-07-11 13:25] LABS: Add Urine Microscopic? NO; Appearance Urine Clear (Clear); Bilirubin Urine Negative (Negative); Blood Urine Negative (Negative); Color Urine Yellow (Yellow); Glucose Urine UA Negative (Negative); Ketones Urine Negative (Negative); Leukocyte Esterase Ur Negative LEU/UL (Negative); Nitrate Urine Negative (Negative); Protein Urine Negative (Negative); Specific Grav Ur 1.019 (1.001-1.035); Urobilinogen Urine Negative mg/dL (<2.0)
[2021-07-11 13:26] LABS: INR 1.2; Prothrombin Time 14.7 Seconds (11.1-14.7)
[2021-07-11 13:27] LABS: Partial Thromboplastin Time 28.1 SECONDS (22.3-36.8)
[2021-07-11 13:31] LABS: Alanine Aminotransferase 21 U/L (4-35); Albumin Level 3.1 g/dL (3.5-5.1); Alkaline Phosphatase 208 U/L (38-126); Anion Gap 6 mmol/L (8-16); Aspartate Amino Transferase 44 U/L (14-36); Bilirubin,Total 1.3 mg/dL (0.2-1.3); Blood Urea Nitrogen 39 mg/dL (7-17); Calcium 8.7 mg/dL (8.4-10.2); Carbon Dioxide 21 mmol/L (22-30); Chloride 99 mmol/L (98-107); Estimated CRCL calculation 29 ml/min; Estimated Glomerular Filt Rate 48; Glucose 98 mg/dL (65-110); Potassium 4.8 mmol/L (3.4-5.0); Sodium 126 mmol/L (137-145)
[2021-07-11] MEDS: SODIUM CHLORIDE 0.9% IV 1,000 ML 999 ML IV CONT (14:19)
--- NOTE | 2021-07-11 16:01 | PM.IMHP ---
H&P: HPI History of Present Illness Date/Time: 07/11/21 16:01 This very pleasant 80 year old female patient with significant PMH of CLL, last Chemotherapy in 11/2019, chronic Immunosuppression with Prednisone since 03/2021, GERD, HLD, HTN, Hypothyroidism, severe osteoarthritis, carpal tunnel with scheduled surgery with Dr. Ruiz 07/28/2021, IBS and SVT presents to the ER with complaints of having three days of increasing weakness and also a persistent cough. She advises she was at her Oncologists office, (Dr. Castellon) two days ago and redness was noted in the ventral left forearm that he verified looked like an infection, so she was started on Keflex and sent home. The pt. reports that since being home over the past two days she has had diarrhea, sinus drainage, productive cough, increased weakness and a general malaise. Walking and ambulating makes her weakness worse and makes her feel dyspneic. She notes she has not eaten in two days. She denies any melena or hematochezia with her diarrhea and she has not had any mucus appearance to it either. Pt. notes that she has had the COVID-19 vaccines and the booster as well as antibodies after having been diagnosed with COVID-19 in May 2021. Her ER workup is significant for leukocytosis at 12.9, hyponatremia at 126, renal insufficiency vs. dehydration vs. CKD vs GEE with creatinine of 1.10 and BUN of 39, AST of 44, and CTA of chest showing bilateral groundglass opacities in the bilateral lungs secondary to either pulmonary edema or COVID PNA vs,. other infectious PNA. Her EKG and remaining labs are normal with ESR, ferritin and covid tests pending. Chief Complaint: Weakness Review of Systems Review of Systems: A 12 point ROS is performed and is otherwise negative except as noted in document. All systems reviewed & are unremarkable except as noted in HPI and below Constitutional: Constitutional: Reports fatigue, Reports lethargy and Reports weakness ENT: Reports nasal congestion and Reports nasal discharge Respiratory: Respiratory: Reports chest congestion, Reports cough, Denies hemoptysis, Reports dyspnea, Reports dyspnea on exertion and Denies wheezing Gastrointestinal: Gastrointestinal: Reports no additional gastrointestinal complaints, Denies abdominal pain, Denies melena, Denies hematochezia, Reports diarrhea, Denies nausea, Denies vomiting and Denies hematemesis Integumentary/Breasts: Skin/Breast: Reports as per HPI and Reports erythema Comments: Left forearm with redness, warmth and obvious infectious process. Neurologic: Reports system reviewed and no additional complaints, except as documented Comments: No focal deficits Psychiatric: Psychiatric: Denies anxiety, Denies depression and Denies suicidal ideation [facility] Past Medical History Medical History (Updated 07/11/21 @ 16:30 by CONNIE Sandoval) CLL (chronic lymphocytic leukemia) GERD (gastroesophageal reflux disease) Hyperlipidemia Hypertension Hypothyroidism Irritable bowel syndrome Alternates between constipation and diarrhea SVT (supraventricular tachycardia) Surgical History Surgical History H/O hemorrhoidectomy She believes in her 20s. H/O: hysterectomy History of rectal surgery benign rectal tumor resection age 18yo Hx of appendectomy At time of her hysterectomy Family History Family History Grandparent Cerebrovascular accident Family history of coronary artery disease Father Family history of kidney disease, Onset Age: 83 Family history of coronary artery disease, Onset Age: 83 Social History Social History Smoking status: Never smoker Alcohol intake: never Substance use: never Substance use type: does not use Gender identity (if verbalized by the patient): Female Spiritual care concerns:
[2021-07-11 16:07] LABS: SARS-CoV-2 RNA PCR Positive
[2021-07-11 16:10] LABS: Erythrocyte Sedimentation Rate 87 mm/hr (0-20)
[2021-07-11] MEDS: SODIUM CHLORIDE 0.9% IV 1,000 ML 125 ML IV CONT (16:37)
--- NOTE | 2021-07-11 16:42 | PC.NURSE ---
Patient care report called to RJ Ho. All questions answered at this time.
--- NOTE | 2021-07-11 17:05 | PC.NURSE ---
This patient, Amber Atwood, was admitted to 3 [facility] Surg Room 331-01. Patient/family oriented to hospital policies and general routines including ID bracelet, bed and alarms, visiting hours, pain management, procedures, bathroom and other care routines, personal items, smoking policy, room service/diet, and visiting hours.Report received from Marlee DE LA ROSA. Information on how to activate the Rapid Response Team has been discussed. Patient/Family are encouraged to report perceived risks to care and to ask questions if they do not understand what they are told or what they should do.
[2021-07-11] MEDS: REMDESIVIR 200 MG/NS 250 ML 200 MG/250 ML BAG 125 MG IVPB (18:13)
[2021-07-11 18:26] LABS: Influenza Control Positive
[2021-07-11] MEDS: traMADol HCL (*CRX) 50 MG TABLET 100 MG PO (19:00)
[2021-07-11] MEDS: ENOXAPARIN 40 MG/0.4 ML SYRINGE SUB-Q (19:03)
[2021-07-11] MEDS: NYSTATIN 100,000 UNITS/ML SUSP 5 ML ORAL.SUSP PO ×2 (19:03→20:28)
[2021-07-11] MEDS: ACETAMINOPHEN 500 MG TABLET 1000 MG PO (20:33)
[2021-07-11] MEDS: DICLOFENAC SODIUM 1% 100 GM GEL (*BKC) 1 APPLIC TOPICAL (22:15)
[2021-07-11] MEDS: ACEBUTOLOL HCL 200 MG CAPSULE PO (23:09)
[2021-07-12] VITALS (10 sets, daily range): BP systolic 107–134; BP diastolic 58–76; PULSE 68–88; RESP 16–18; TEMP 35.9–37.7; O2SAT 90–94
[2021-07-12] MEDS: LEVOTHYROXINE SODIUM 88 MCG TABLET PO (05:49)
[2021-07-12] MEDS: traMADol HCL (*CRX) 50 MG TABLET 100 MG PO ×3 (05:52→22:26)
[2021-07-12] MEDS: SODIUM CHLORIDE 0.9% IV 1,000 ML 125 ML IV CONT ×2 (05:55→14:02)
[2021-07-12 06:15] LABS: Basophils Percent Auto 0.3 % (0.2-1.2); Hematocrit 32.9 % (37.0-47.0); Hemoglobin 10.9 g/dL (12.0-15.0); Immature Granulocyte Absolute 0.06 K/mm3 (0.00-0.031); Immature Granulocyte Percent A 0.8 % (0-0.5); Lymphocytes Absolute Auto 0.24 K/mm3 (0.9-3.2); Lymphocytes Percent Auto 3.3 % (18.3-44.2); Mean Corpuscular HGB Conc 33.1 g/dl (32-36); Mean Corpuscular Hemoglobin 32.2 pg (26-34); Mean Corpuscular Volume 97.3 fl (80-100); Mean Platelet Volume 9.2 fl (7.4-10.4); Monocytes Absolute Auto 0.2 K/mm3 (0.1-0.6); Monocytes Percent Auto 2.9 % (2.6-8.5); Neutrophils Absolute Auto 6.8 K/mm3 (1.3-6.7); Neutrophils Percent Auto 92.7 % (45.5-73.1); Platelet Count Result 184 k/mm3 (150-375); Red Blood Count 3.38 M/mm3 (4.2-5.4); Red Cell Distribution Width 14.5 % (11.5-14.5); White Blood Count 7.4 K/mm3 (4.5-10.0)
[2021-07-12 06:23] LABS: Lactic Acid Reflex 1.9 mmol/L (0.7-2.1)
[2021-07-12 06:29] LABS: Alanine Aminotransferase 20 U/L (4-35); Albumin Level 2.6 g/dL (3.5-5.1); Alkaline Phosphatase 171 U/L (38-126); Anion Gap 7 mmol/L (8-16); Aspartate Amino Transferase 40 U/L (14-36); Bilirubin,Total 0.7 mg/dL (0.2-1.3); Blood Urea Nitrogen 37 mg/dL (7-17); Calcium 8.2 mg/dL (8.4-10.2); Carbon Dioxide 18 mmol/L (22-30); Chloride 102 mmol/L (98-107); Estimated CRCL calculation 29 ml/min; Estimated Glomerular Filt Rate 48; Glucose 136 mg/dL (65-110); Lactate Dehydrogenase 820 U/L (313-618); Magnesium 1.9 mg/dL (1.6-2.3); Potassium 4.5 mmol/L (3.4-5.0); Sodium 127 mmol/L (137-145)
[2021-07-12 06:38] LABS: CRP 25.5 mg/dL (<1.0)
[2021-07-12] MEDS: DICYCLOMINE HCL 10 MG CAPSULE 20 MG PO ×3 (08:39→17:17)
[2021-07-12] MEDS: PRAVASTATIN SODIUM 20 MG TABLET PO (08:39)
[2021-07-12] MEDS: hydroCHLOROthiazide 25 MG TABLET PO (08:40)
[2021-07-12] MEDS: LOSARTAN POTASSIUM 25 MG TABLET PO (08:40)
[2021-07-12] MEDS: NIFEdipine 30 MG TAB.ER.24 PO (08:40)
[2021-07-12] MEDS: NYSTATIN 100,000 UNITS/ML SUSP 5 ML ORAL.SUSP PO ×4 (08:40→20:14)
[2021-07-12] MEDS: FLUCONAZOLE 150 MG TABLET PO (08:40)
[2021-07-12] MEDS: ASPIRIN 81 MG ENTERIC TABLET PO (08:40)
[2021-07-12] MEDS: PANTOPRAZOLE 40 MG TABLET PO (08:40)
[2021-07-12] MEDS: FLUTICASONE PROPIONATE 0.05% NA SPR 16 GM BTL (*BKC) 2 SPRAY NASAL (08:41)
[2021-07-12] MEDS: ALPRAZolam (*CRX) 0.5 MG TABLET PO (08:47)
--- NOTE | 2021-07-12 09:03 | PCPTNOTE ---
attempted PT evaluation 2x this AM--eating breakfast, then with nursing and lab waiting to draw stat blood draw.
[2021-07-12 09:04] LABS: Erythrocyte Sedimentation Rate 106 mm/hr (0-20)
[2021-07-12 09:14] LABS: INR 1.4; Prothrombin Time 16.2 Seconds (11.1-14.7)
--- NOTE | 2021-07-12 09:29 | PC.NURSE ---
Attempt to titrate O2 back to 2L per NC. Desats to 88%. Returned to 5L per NC. Sats increased to 92%.
[2021-07-12] MEDS: ACEBUTOLOL HCL 200 MG CAPSULE PO ×2 (10:55→20:14)
--- NOTE | 2021-07-12 11:00 | PC.NURSE ---
Called for PRN resp treatment. Therapist request MDI considering pt's recent dx of covid. [employer] notified and orders received for MDI.
--- NOTE | 2021-07-12 12:18 | PM.IMPN ---
Progress Note: A&P Assessment and Plan (1) Pneumonia: Qualifiers: Laterality: unspecified laterality Lung location: unspecified part of lung Pneumonia type: due to unspecified organism Qualified Code(s): J18.9 - Pneumonia, unspecified organism Code(s): J18.9 - Pneumonia, unspecified organism Status: Acute Assessment and Plan: - Change abx to Vancomycin and Cefepime to cover both PNA as well as the pt's cellulitis that she has as it is not clear whether or not the patient has an active COVID or if it still abnormal from her COVID that she had in May. As her symptoms only started two days ago, will assume that this is a new COVID case and also start Remdesivir and do Dexamethasone. - Pharmacy to renally dose. - Sputum cx ordered. - Continue supplemental oxygen and titrate as needed. - Follow VS and trend labs including CBC, CMP, Lactic, Ferritin, CRP, LDH - COVID-19 positive. Unsure if she is in active infection, or if it is from her May documented infection. Will place patient in isolation and monitor. - Combivent inhaler Q6 hours - Albuterol inhaler Q4 hours prn (2) Leukocytosis (leucocytosis): Qualifiers: Leukocytosis type: unspecified Qualified Code(s): D72.829 - Elevated white blood cell count, unspecified Code(s): D72.829 - Elevated white blood cell count, unspecified Status: Acute Assessment and Plan: - Secondary to current PNA as well as COVID and Cellulitis - Monitor labs and vitals and trend labs as noted in problem #1 - Obtain UA (3) Hypoxia: Code(s): R09.02 - Hypoxemia Status: Acute Assessment and Plan: - 86% On room air. - Provide supplemental Oxygen for support. Goal of >92%. Currently requiring increase in oxygen from 2L to 5L. - Wean oxygen as able to. - Pt. being treated with IV steroids, IV abx and also with Inhalers. - Follow labs and VS. (4) Cellulitis: Qualifiers: Site of cellulitis: extremity Site of cellulitis of extremity: upper extremity Laterality: left Qualified Code(s): L03.114 - Cellulitis of left upper limb Code(s): L03.90 - Cellulitis, unspecified Status: Acute Assessment and Plan: - Start Vancomycin and Cefepime to be renally dosed by pharmacy. - Monitor labs and VS - Obtain blood cultures x2 prior to start of abx. 07/12/21: Improving redness and warmth. Blood cultures still pending. (5) CLL (chronic lymphocytic leukemia): Code(s): C91.10 - Chronic lymphocytic leukemia of B-cell type not having achieved remission Status: Chronic Assessment and Plan: - Pt's prednisone to be discontinued, however due to the current dx of covid and requirement of supplemental oxygen, Dexamethasone is started as well. - Will order Nystatin swish and swallow as a prophylactic as well as her Diflucan as pt. is immunocompromised. (6) Osteoarthritis: Qualifiers: Osteoarthritis location: unspecified site Osteoarthritis type: unspecified Qualified Code(s): M19.90 - Unspecified osteoarthritis, unspecified site Code(s): M19.90 - Unspecified osteoarthritis, unspecified site Status: Chronic Assessment and Plan: - Continue home medication of Tramadol 100 mg Q6 hrs and Tylenol 1000 mg Q6 as needed for pain. (7) Diarrhea: Qualifiers: Diarrhea type: unspecified type Qualified Code(s): R19.7 - Diarrhea, unspecified Code(s): R19.7 - Diarrhea, unspecified Status: Acute Assessment and Plan: - Started after only two days of Keflex. Suspicion for C-diff is low, however, will test as it is a presenting problem. - Stool panel. - Monitor and if too problematic consider Banatrol or anti-diarrheal. (8) COVID-19: Code(s): U07.1 - COVID-19 Status: Acute Assessment and Plan: - Start Remdesivir - Start Dexamethasone - Ipratropium/Albuterol Q6 hrs scheduled - Albuterol Q4 hrs prn - Supplemental oxygen - Isolation
[2021-07-12] MEDS: ALBUTEROL SULFATE (*SP) AEROSOL 1 PUFF 2 PUFF INHALATION ×2 (12:23→20:30)
--- NOTE | 2021-07-12 13:39 | PM.CNPUL ---
Assessment and Plan Assessment and plan (1) COVID-19: Code(s): U07.1 - COVID-19 Status: Acute (2) Pneumonia: Qualifiers: Laterality: unspecified laterality Lung location: unspecified part of lung Pneumonia type: due to unspecified organism Qualified Code(s): J18.9 - Pneumonia, unspecified organism Code(s): J18.9 - Pneumonia, unspecified organism Status: Acute Assessment and Plan: 80-year-old female Immunocompromised with history of CLL chronically on oral steroids has had acute hypoxemic respiratory failure, bilateral extensive patchy infiltrates with some subpleural distribution most likely due to acute COVID-19 infection. Patient was tested positive for COVID-19 infection and received monoclonal antibodies on outpatient basis approximately 2 months ago. Reportedly the patient had fully recovered from the acute covid 19 illness 2 months ago and had been doing well until 4 days ago. 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 The bilateral pulmonary infiltrates are more consistent with acute infection rather than infiltrates related to superimposed organizing pneumonia. Plan is as follows. The patient is still receiving low-flow oxygen therapy. Agree with remdesivir and IV dexamethasone. Will monitor respiratory status and may consider adding anti L6 treatment or baricitinib if oxygen needs escalate over the next few days. Monitor CRP, D-dimers and continue with DVT prophylaxis. Continue with current antibiotic regimen for now and limit administration of IV fluids as patient is taking fluids p.o.. Will follow the patient along with you. (3) Hypoxia: Code(s): R09.02 - Hypoxemia Status: Acute (4) CLL (chronic lymphocytic leukemia): Code(s): C91.10 - Chronic lymphocytic leukemia of B-cell type not having achieved remission Status: Chronic History of Present Illness History of Present Illness Consult date: 07/12/21 Chief complaint: Pneumonia Narrative: This 80-year-old female presented with few day history of progressively increasing shortness of breath weakness and mild cough. 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 The patient was in her usual state of health until approximately 2 months ago when around mid May she developed severe sore throat. She had no other respiratory symptoms such as shortness of breath cough or wheezing. The patient was tested positive for COVID 19 infection and received treatment with monoclonal antibodies on an outpatient basis. Of note the patient had been fully vaccinated. Patient improved following treatment with monoclonal antibodies. Approximately 3 days ago she started having weakness shortness of breath and mild dry cough. She had no chest pain hemoptysis fever chills wheezing or lower extremity edema. The patient was diagnosed with a bilateral pneumonia and again was tested positive for COVID-19 infection. Currently she is receiving no flow oxygen therapy and has been on dexamethasone and remdesivir. She also receiving antibiotics for possible occult infection. Upon questioning she continues to have weakness and shortness of breath with activities. She never had history of lung disease. Review of Systems Review of Systems: All systems reviewed & are unremarkable except as noted in HPI and below PMFSH Past Medical History Medical History (Updated 07/11/21 @ 16:30 by CAIT SandovalN-C) CLL (chronic lymphocytic leukemia) GERD (gastroesophageal reflux disease) Hyperlipidemia Hypertension Hypothyroidism Irritable bowel syndrome Alternates between constipation and diarrhea SVT (supraventricula
--- NOTE | 2021-07-12 16:57 | PC.NURSE ---
Pt status report called to daughterKelsey.
[2021-07-12] MEDS: ACETAMINOPHEN 500 MG TABLET 1000 MG PO (17:18)
[2021-07-12] MEDS: ENOXAPARIN 40 MG/0.4 ML SYRINGE SUB-Q (17:21)
[2021-07-12] MEDS: REMDESIVIR 100 MG/NS 250 ML 100 MG/250 ML BAG 250 MG IVPB (21:43)
[2021-07-12] MEDS: ZOLPIDEM TARTRATE (*CRX) 5 MG TABLET PO (22:17)
[2021-07-13] VITALS (19 sets, daily range): BP systolic 109–122; BP diastolic 62–71; PULSE 74–87; RESP 16–24; TEMP 36.4–36.8; O2SAT 67–100
[2021-07-13] MEDS: ALBUTEROL SULFATE (*SP) AEROSOL 1 PUFF 2 PUFF INHALATION ×4 (02:17→20:47)
[2021-07-13] MEDS: LEVOTHYROXINE SODIUM 88 MCG TABLET PO (05:45)
[2021-07-13 06:28] LABS: Basophils Percent Auto 0.2 % (0.2-1.2); Hemoglobin 10.4 g/dL (12.0-15.0); Immature Granulocyte Absolute 0.13 K/mm3 (0.00-0.031); Lymphocytes Absolute Auto 0.27 K/mm3 (0.9-3.2); Lymphocytes Percent Auto 2.1 % (18.3-44.2); Mean Corpuscular HGB Conc 34.7 g/dl (32-36); Mean Corpuscular Hemoglobin 32.6 pg (26-34); Mean Platelet Volume 9.6 fl (7.4-10.4); Monocytes Absolute Auto 0.4 K/mm3 (0.1-0.6); Monocytes Percent Auto 2.9 % (2.6-8.5); Neutrophils Absolute Auto 12.2 K/mm3 (1.3-6.7); Neutrophils Percent Auto 93.8 % (45.5-73.1); Platelet Count Result 221 k/mm3 (150-375); Red Blood Count 3.19 M/mm3 (4.2-5.4); Red Cell Distribution Width 14.4 % (11.5-14.5); White Blood Count 13.1 K/mm3 (4.5-10.0)
[2021-07-13 06:38] LABS: INR 1.4; Prothrombin Time 16.5 Seconds (11.1-14.7)
[2021-07-13 06:46] LABS: Alanine Aminotransferase 21 U/L (4-35); Albumin Level 2.3 g/dL (3.5-5.1); Alkaline Phosphatase 180 U/L (38-126); Anion Gap 4 mmol/L (8-16); Aspartate Amino Transferase 36 U/L (14-36); Bilirubin,Total 0.4 mg/dL (0.2-1.3); Blood Urea Nitrogen 39 mg/dL (7-17); Calcium 7.9 mg/dL (8.4-10.2); Carbon Dioxide 16 mmol/L (22-30); Chloride 106 mmol/L (98-107); Estimated CRCL calculation 31 ml/min; Estimated Glomerular Filt Rate 53; Glucose 126 mg/dL (65-110); Magnesium 1.9 mg/dL (1.6-2.3); Potassium 3.7 mmol/L (3.4-5.0); Sodium 126 mmol/L (137-145)
[2021-07-13 06:54] LABS: D Dimer 8.54 ug/mL (<0.48)
[2021-07-13 06:56] LABS: CRP 15.6 mg/dL (<1.0)
[2021-07-13] MEDS: UMECLIDINIUM BROMIDE 62.5 MCG ELLIPTA 1 PUFF INHALATION (08:23)
[2021-07-13] MEDS: FLUCONAZOLE 150 MG TABLET PO (08:29)
[2021-07-13] MEDS: ACEBUTOLOL HCL 200 MG CAPSULE PO ×2 (08:29→21:51)
[2021-07-13] MEDS: ASPIRIN 81 MG ENTERIC TABLET PO (08:30)
[2021-07-13] MEDS: LOSARTAN POTASSIUM 25 MG TABLET PO (08:30)
[2021-07-13] MEDS: hydroCHLOROthiazide 25 MG TABLET PO (08:30)
[2021-07-13] MEDS: PRAVASTATIN SODIUM 20 MG TABLET PO (08:30)
[2021-07-13] MEDS: NIFEdipine 30 MG TAB.ER.24 PO (08:30)
[2021-07-13] MEDS: PANTOPRAZOLE 40 MG TABLET PO (08:31)
[2021-07-13] MEDS: NYSTATIN 100,000 UNITS/ML SUSP 5 ML ORAL.SUSP PO ×4 (08:31→21:50)
[2021-07-13] MEDS: FLUTICASONE PROPIONATE 0.05% NA SPR 16 GM BTL (*BKC) 2 SPRAY NASAL (08:47)
[2021-07-13] MEDS: ALPRAZolam (*CRX) 0.5 MG TABLET PO (08:52)
[2021-07-13] MEDS: traMADol HCL (*CRX) 50 MG TABLET 100 MG PO (09:06)
[2021-07-13] MEDS: WATER FOR IRRIGATION, STERILE 1,000 ML BOTTLE 1000 ML (09:08)
--- NOTE | 2021-07-13 09:25 | PM.PNPUL ---
Progress Note: A&P Additional Plan 80-year-old female Immunocompromised with history of CLL chronically on oral steroids has had acute hypoxemic respiratory failure, bilateral extensive patchy infiltrates with some subpleural distribution most likely due to acute COVID-19 infection. Patient was tested positive for COVID-19 infection and received monoclonal antibodies on outpatient basis approximately 2 months ago. Reportedly the patient had fully recovered from the acute covid 19 illness 2 months ago and had been doing well until 4 days ago. 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 The bilateral pulmonary infiltrates are more consistent with acute infection rather than infiltrates related to superimposed organizing pneumonia. Oxygen needs have increased this a.m. while the patient had no new respiratory symptoms and was receiving supplemental oxygen at low flow via nasal cannula. Patient was placed on high-flow nasal cannula. I would continue with remdesivir, dexamethasone and add baricitinib at low dose given her borderline creatinine clearance. CRP lower today but D-dimer significantly elevated. If D dimer are related solely to COVID-19 infection and not to history of hemolysis then this high level portends poor prognosis. I would discontinue vancomycin and continue with just cefepime for now. Will follow the patient along with you. (3) Hypoxia: Code(s): R09.02 - Hypoxemia Status: Acute (4) CLL (chronic lymphocytic leukemia): Code(s): C91.10 - Chronic lymphocytic leukemia of B-cell type not having achieved remission Status: Chronic Subjective Date/time seen: 07/13/21 09:25 Patient has no new respiratory symptoms but oxyhemoglobin saturation was low on low-flow oxygen via a nasal cannula this a.m.. Has had a dry cough no wheezing chest pain orthopnea. Overall shortness of breath unchanged. Review of Systems Review of Systems: All systems reviewed & are unremarkable except as noted in HPI and below Exam Narrative: GENERAL APPEARANCE: Well developed, well nourished, alert and cooperative, awho appears to be in mild respiratory distress while receiving oxygen via nasal cannula SKIN: Inspection of the skin reveals no rashes, ulcerations. Ecchymotic skin in upper extremities HEENT: Sclerae anicteric and conjunctivae pink and moist. Extraocular movements were intact and pupils were equal, round. The oral mucosa, hard and soft palate, tongue and posterior pharynx were normal. NECK: Supple. There was no thyroid enlargement, and no tenderness, or masses were felt. CHEST: Normal AP diameter and normal contour without any kyphoscoliosis. LUNGS: Auscultation of the lungs revealed crackles at bases posteriorly no wheezing CARDIAC: There was a regular rate and rhythm without any murmurs. ABDOMEN: Soft and nontender with normal bowel sounds. There was no organomegaly. LYMPH NODES: No lymphadenopathy was appreciated in the neck. EXTREMITIES: No cyanosis, clubbing or edema. NEUROLOGIC: Alert and oriented x 3. Normal affect. Objective Data Vital Signs Vital Signs: Vital Signs - 24 hr 07/12/21 12:00 07/12/21 14:00 07/12/21 16:00 Temperature 36.2 C L Pulse Rate 88 88 76 Respiratory Rate 18 Blood Pressure 110/66 Pulse Oximetry 93 07/12/21 20:00 07/12/21 20:14 07/12/21 20:30 Temperature 37.7 C H Pulse Rate 82 76 Respiratory Rate 16 Blood Pressure 107/58 L Pulse Oximetry 90 94 07/13/21 00:00 07/13/21 04:00 07/13/21 05:48 Temperature 36.8 C Pulse Rate 76 78 81 Respiratory Rate 16 Blood Pressure 111/65 Pulse Oximetry 94 07/13/21 08:27 07/13/21 08:29 Temperature Pulse Rate 87 Respiratory Rate Blood Pressure Pulse Oximetry 94 Intake/Output Intake/Output: Intake & Output 07/10/21 07/11/21 03
[2021-07-13 09:33] LABS: Alveolar/Arterial O2 Gradient 641.3 mmHg; Carboxyhemoglobin 0.2 % THb (0-2.0); Fractional Inspired Oxygen 100 %; HCO3 ABG 14.3 mEq/l (22.0-26.0); Methemoglobin ABG 0.3 %THb (0-1.5); Oxygen Content ABG 13.6 %vol (16.0-22.0); PCO2 ABG 24.2 mmHg (35.0-45.0); PO2 ABG 47.5 mmHg (80.0-100.0); PO2 FiO2 Ratio Arterial Blood 0.47 %; Reduced Hemoglobin 19.5 %THb (0-5.0); Total Hemoglobin 12.1 g/dL (12.0-18.0); pH ABG 7.388 (7.350-7.450)
[2021-07-13 09:35] LABS: Device HIGH FLOW NASAL CANN; Modified Allen's Test Pass; Site Drawn RIGHT RADIAL
[2021-07-13 10:02] LABS: Alanine Aminotransferase 23 U/L (4-35); Aspartate Amino Transferase 40 U/L (14-36); Estimated CRCL calculation 31 ml/min; Estimated Glomerular Filt Rate 53
[2021-07-13 10:16] LABS: Basophils Percent Auto 0.2 % (0.2-1.2); Eosinophils Absolute Auto 0.6 K/mm3 (0-0.3); Eosinophils Percent Auto 3.7 % (0-4.4); Hematocrit 31.2 % (37.0-47.0); Hemoglobin 10.2 g/dL (12.0-15.0); Immature Granulocyte Absolute 0.19 K/mm3 (0.00-0.031); Immature Granulocyte Percent A 1.2 % (0-0.5); Lymphocytes Percent Auto 1.2 % (18.3-44.2); Mean Corpuscular HGB Conc 32.7 g/dl (32-36); Mean Corpuscular Hemoglobin 32.1 pg (26-34); Mean Corpuscular Volume 98.1 fl (80-100); Mean Platelet Volume 9.6 fl (7.4-10.4); Monocytes Absolute Auto 0.3 K/mm3 (0.1-0.6); Monocytes Percent Auto 1.7 % (2.6-8.5); Platelet Count Result 228 k/mm3 (150-375); Red Blood Count 3.18 M/mm3 (4.2-5.4); Red Cell Distribution Width 14.6 % (11.5-14.5); White Blood Count 16.4 K/mm3 (4.5-10.0)
--- NOTE | 2021-07-13 10:20 | PCOTNOTE ---
Canceling order for therapy services at this time. Per nurse, pt. declined in condition over last 24 hours, requiring increased O2 needs. Therapy services will be reordered when pt. more tolerant of activity
[2021-07-13 10:36] LABS: Burr Cells 1+ (NORMAL); Platelet Estimate Adequate (Adequate)
--- NOTE | 2021-07-13 11:10 | PM.IMPN ---
Progress Note: A&P Assessment and Plan (1) Pneumonia: Qualifiers: Laterality: unspecified laterality Lung location: unspecified part of lung Pneumonia type: due to unspecified organism Qualified Code(s): J18.9 - Pneumonia, unspecified organism Code(s): J18.9 - Pneumonia, unspecified organism Status: Acute Assessment and Plan: -on cefepime to cover PNA and cellulits. was started on Vanc but this was discontinued per pulm -no clear whether patient hasa ctive COVID or if it still abnormal from her COVID that she had in May. 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 - Pharmacy to renally dose. - Sputum cx ordered. - Continue supplemental oxygen and titrate as needed. - Follow VS and trend labs including CBC, CMP, Lactic, Ferritin, CRP, LDH - COVID-19 positive. Unsure if she is in active infection, or if it is from her May documented infection. Will place patient in isolation and monitor. - Combivent inhaler Q6 hours - Albuterol inhaler Q4 hours prn -baricitinib started per pulm (2) Leukocytosis (leucocytosis): Qualifiers: Leukocytosis type: unspecified Qualified Code(s): D72.829 - Elevated white blood cell count, unspecified Code(s): D72.829 - Elevated white blood cell count, unspecified Status: Acute Assessment and Plan: - Secondary to current PNA as well as COVID and Cellulitis - Monitor labs and vitals and trend labs as noted in problem #1 - UA negative (3) Hypoxia: Code(s): R09.02 - Hypoxemia Status: Acute Assessment and Plan: - 86% On room air. - Provide supplemental Oxygen for support. Goal of >92%. Currently requiring increase in oxygen to 15L NC - Wean oxygen as able to. - Pt. being treated with IV steroids, IV abx and also with Inhalers. - Follow labs and VS. -pulm consulted, appreciate recommendations (4) Cellulitis: Qualifiers: Site of cellulitis: extremity Site of cellulitis of extremity: upper extremity Laterality: left Qualified Code(s): L03.114 - Cellulitis of left upper limb Code(s): L03.90 - Cellulitis, unspecified Status: Acute Assessment and Plan: - Start Vancomycin and Cefepime to be renally dosed by pharmacy. - Monitor labs and VS - Obtain blood cultures x2 prior to start of abx. 07/12/21: Improving redness and warmth. Blood cultures still pending. 07/13/21: vanc stopped per pulm (5) CLL (chronic lymphocytic leukemia): Code(s): C91.10 - Chronic lymphocytic leukemia of B-cell type not having achieved remission Status: Chronic Assessment and Plan: - Pt's prednisone to be discontinued, however due to the current dx of covid and requirement of supplemental oxygen, Dexamethasone is started as well. - Will order Nystatin swish and swallow as a prophylactic as well as her Diflucan as pt. is immunocompromised. (6) Osteoarthritis: Qualifiers: Osteoarthritis location: unspecified site Osteoarthritis type: unspecified Qualified Code(s): M19.90 - Unspecified osteoarthritis, unspecified site Code(s): M19.90 - Unspecified osteoarthritis, unspecified site Status: Chronic Assessment and Plan: - Continue home medication of Tramadol 100 mg Q6 hrs and Tylenol 1000 mg Q6 as needed for pain. (7) Diarrhea: Qualifiers: Diarrhea type: unspecified type Qualified Code(s): R19.7 - Diarrhea, unspecified Code(s): R19.7 - Diarrhea, unspecified Status: Acute Assessment and Plan: - Started after only two days of Keflex. Suspicion for C-diff is low, however, will test as it is a presenting problem. - Stool panel. - Monitor and if too problematic consider Banatrol or anti-diarrheal. (8) COVID-19: Code(s): U07.1 - COVID-19 Status: Acute Assessment and Plan: - Start Remdes
[2021-07-13] MEDS: guaiFENesin/CODEINE (*CRX) 200/20 MG 10 ML SYRUP PO ×3 (12:17→21:48)
--- NOTE | 2021-07-13 13:38 | PC.NURSE ---
patient requiring higher oxygen needs. orders received for transfer to IMU. IMU full and patient to go to room icu 9. patient notified and patient asked if I could notify daughter. Kelsey notified and all questions answered at this time.
--- NOTE | 2021-07-13 15:38 | PCPTNOTE ---
The patient treatment was not able to be completed today due to change in medical status. Patient transferred to ICU. PT will hold PT until further orders are received.
--- NOTE | 2021-07-13 16:05 | PC.NURSE ---
Addendum entered by Honey Duckworth RNLP 07/13/21 16:07: Transferred at 1520. Original Note: Transferred by bed to ICU room 9. Report given to Vidhya DE LA ROSA.
[2021-07-13] MEDS: BARICITINIB 2 MG TABLET PO (17:38)
[2021-07-13] MEDS: ENOXAPARIN 40 MG/0.4 ML SYRINGE SUB-Q (17:59)
[2021-07-13] MEDS: REMDESIVIR 100 MG/NS 250 ML 100 MG/250 ML BAG 125 MG IVPB (21:48)
[2021-07-13] MEDS: ZOLPIDEM TARTRATE (*CRX) 5 MG TABLET PO (23:33)
[2021-07-14] VITALS (23 sets, daily range): BP systolic 94–119; BP diastolic 57–68; PULSE 77–84; RESP 17–28; TEMP 36.4–36.6; O2SAT 87–100
[2021-07-14] MEDS: ALBUTEROL SULFATE (*SP) AEROSOL 1 PUFF 2 PUFF INHALATION ×4 (02:34→20:23)
[2021-07-14] MEDS: guaiFENesin/CODEINE (*CRX) 200/20 MG 10 ML SYRUP PO ×4 (02:45→18:38)
[2021-07-14] MEDS: traMADol HCL (*CRX) 50 MG TABLET 100 MG PO ×3 (02:46→22:51)
[2021-07-14 04:24] LABS: Basophils Percent Auto 0.4 % (0.2-1.2); Eosinophils Absolute Auto 0.1 K/mm3 (0-0.3); Eosinophils Percent Auto 0.6 % (0-4.4); Hematocrit 31.7 % (37.0-47.0); Hemoglobin 10.6 g/dL (12.0-15.0); Immature Granulocyte Absolute 0.15 K/mm3 (0.00-0.031); Immature Granulocyte Percent A 1.3 % (0-0.5); Lymphocytes Absolute Auto 0.39 K/mm3 (0.9-3.2); Lymphocytes Percent Auto 3.5 % (18.3-44.2); Mean Corpuscular HGB Conc 33.4 g/dl (32-36); Mean Corpuscular Hemoglobin 32.1 pg (26-34); Mean Corpuscular Volume 96.1 fl (80-100); Mean Platelet Volume 9.4 fl (7.4-10.4); Monocytes Absolute Auto 0.3 K/mm3 (0.1-0.6); Monocytes Percent Auto 2.8 % (2.6-8.5); Neutrophils Absolute Auto 10.2 K/mm3 (1.3-6.7); Neutrophils Percent Auto 91.4 % (45.5-73.1); Platelet Count Result 187 k/mm3 (150-375); Red Cell Distribution Width 14.5 % (11.5-14.5); White Blood Count 11.2 K/mm3 (4.5-10.0)
[2021-07-14 04:33] LABS: INR 1.6; Prothrombin Time 18.1 Seconds (11.1-14.7)
[2021-07-14 04:41] LABS: Alanine Aminotransferase 21 U/L (4-35); Aspartate Amino Transferase 39 U/L (14-36); Estimated CRCL calculation 35 ml/min; Estimated Glomerular Filt Rate 60
[2021-07-14 04:48] LABS: Anisocytosis 1+ (NORMAL); Ovalocytes 1+ (NORMAL); Platelet Estimate Adequate (Adequate)
[2021-07-14 04:49] LABS: Acanthocytes 1+ (NORMAL); Burr Cells 2+ (NORMAL); D Dimer 11.32 ug/mL (<0.48)
[2021-07-14 04:54] LABS: CRP 12.6 mg/dL (<1.0)
[2021-07-14] MEDS: LEVOTHYROXINE SODIUM 88 MCG TABLET PO (06:43)
[2021-07-14] MEDS: UMECLIDINIUM BROMIDE 62.5 MCG ELLIPTA 1 PUFF INHALATION (08:03)
[2021-07-14] MEDS: PRAVASTATIN SODIUM 20 MG TABLET PO (08:13)
[2021-07-14] MEDS: ACEBUTOLOL HCL 200 MG CAPSULE PO ×2 (08:13→20:17)
[2021-07-14] MEDS: FLUTICASONE PROPIONATE 0.05% NA SPR 16 GM BTL (*BKC) 2 SPRAY NASAL (08:13)
[2021-07-14] MEDS: hydroCHLOROthiazide 25 MG TABLET PO (08:14)
[2021-07-14] MEDS: FLUCONAZOLE 150 MG TABLET PO (08:14)
[2021-07-14] MEDS: LOSARTAN POTASSIUM 25 MG TABLET PO (08:14)
[2021-07-14] MEDS: ALPRAZolam (*CRX) 0.5 MG TABLET PO (08:14)
[2021-07-14] MEDS: NYSTATIN 100,000 UNITS/ML SUSP 5 ML ORAL.SUSP PO ×4 (08:14→20:17)
[2021-07-14] MEDS: NIFEdipine 30 MG TAB.ER.24 PO (08:20)
[2021-07-14] MEDS: ASPIRIN 81 MG ENTERIC TABLET PO (08:21)
[2021-07-14] MEDS: PANTOPRAZOLE 40 MG TABLET PO (08:21)
[2021-07-14 08:35] LABS: Alveolar/Arterial O2 Gradient 498.7 mmHg; Base Excess ABG -6.4 mEq/l (+/-2.0); Fractional Inspired Oxygen 93 %; HCO3 ABG 16.4 mEq/l (22.0-26.0); Oxygen Content ABG 17.1 %vol (16.0-22.0); Oxygen Saturation ABG 98.9 % (95.0-100.0); Oxyhemoglobin 97.4 % THb (90.0-100.0); PCO2 ABG 25.4 mmHg (35.0-45.0); PO2 ABG 138.6 mmHg (80.0-100.0); PO2 FiO2 Ratio Arterial Blood 1.49 %; Total Hemoglobin 12.3 g/dL (12.0-18.0); pH ABG 7.428 (7.350-7.450)
[2021-07-14 08:38] LABS: Modified Allen's Test Pass; Site Drawn RIGHT RADIAL
[2021-07-14 08:39] LABS: Device HIGH FLOW THERAPY
[2021-07-14 08:55] LABS: Anion Gap 8 mmol/L (8-16); Blood Urea Nitrogen 40 mg/dL (7-17); Calcium 8.6 mg/dL (8.4-10.2); Carbon Dioxide 17 mmol/L (22-30); Chloride 104 mmol/L (98-107); Estimated CRCL calculation 41 ml/min; Estimated Glomerular Filt Rate 60; Glucose 99 mg/dL (65-110); Potassium 3.9 mmol/L (3.4-5.0); Sodium 129 mmol/L (137-145)
[2021-07-14] MEDS: BENZONATATE 100 MG CAPSULE 200 MG PO ×3 (10:23→18:38)
[2021-07-14] MEDS: BARICITINIB 2 MG TABLET PO (10:23)
[2021-07-14] MEDS: ENOXAPARIN 40 MG/0.4 ML SYRINGE SUB-Q ×3 (14:05→22:51)
--- NOTE | 2021-07-14 14:09 | PM.IMPN ---
Progress Note: A&P Assessment and Plan (1) Pneumonia: Qualifiers: Laterality: unspecified laterality Lung location: unspecified part of lung Pneumonia type: due to unspecified organism Qualified Code(s): J18.9 - Pneumonia, unspecified organism Code(s): J18.9 - Pneumonia, unspecified organism Status: Acute Assessment and Plan: -on cefepime to cover PNA and cellulits. was started on Vanc but this was discontinued per pulm -no clear whether patient hasa ctive COVID or if it still abnormal from her COVID that she had in May. As her symptoms only started two days java lead, will assume that this is a new COVID case and also start Remdesivir and do Dexamethasone. - Pharmacy to renally dose. - Sputum cx ordered. - Continue supplemental oxygen and titrate as needed. - Follow VS and trend labs including CBC, CMP, Lactic, Ferritin, CRP, LDH - COVID-19 positive. Unsure if she is in active infection, or if it is from her May documented infection. Will place patient in isolation and monitor. 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 (2) Leukocytosis (leucocytosis): Qualifiers: Leukocytosis type: unspecified Qualified Code(s): D72.829 - Elevated white blood cell count, unspecified Code(s): D72.829 - Elevated white blood cell count, unspecified Status: Acute Assessment and Plan: - Secondary to current PNA as well as COVID and Cellulitis - Monitor labs and vitals and trend labs as noted in problem #1 - UA negative (3) Hypoxia: Code(s): R09.02 - Hypoxemia Status: Acute Assessment and Plan: - 86% On room air. - Provide supplemental Oxygen for support. Goal of >92%. Currently requiring increase in oxygen to 15L NC - Wean oxygen as able to. - Pt. being treated with IV steroids, IV abx and also with Inhalers. - Follow labs and VS. -pulm consulted, appreciate recommendations (4) Cellulitis: Qualifiers: Site of cellulitis: extremity Site of cellulitis of extremity: upper extremity Laterality: left Qualified Code(s): L03.114 - Cellulitis of left upper limb Code(s): L03.90 - Cellulitis, unspecified Status: Acute Assessment and Plan: - Start Vancomycin and Cefepime to be renally dosed by pharmacy. - Monitor labs and VS - Obtain blood cultures x2 prior to start of abx. 07/12/21: Improving redness and warmth. Blood cultures still pending. 07/13/21: vanc stopped per pulm (5) CLL (chronic lymphocytic leukemia): Code(s): C91.10 - Chronic lymphocytic leukemia of B-cell type not having achieved remission Status: Chronic Assessment and Plan: - Pt's prednisone to be discontinued, however due to the current dx of covid and requirement of supplemental oxygen, Dexamethasone is started as well. - Will order Nystatin swish and swallow as a prophylactic as well as her Diflucan as pt. is immunocompromised. (6) Osteoarthritis: Qualifiers: Osteoarthritis location: unspecified site Osteoarthritis type: unspecified Qualified Code(s): M19.90 - Unspecified osteoarthritis, unspecified site Code(s): M19.90 - Unspecified osteoarthritis, unspecified site Stat
[2021-07-14] MEDS: REMDESIVIR 100 MG/NS 250 ML 100 MG/250 ML BAG 125 MG IVPB (22:51)
[2021-07-15] VITALS (23 sets, daily range): BP systolic 92–121; BP diastolic 53–71; PULSE 77–97; RESP 18–28; TEMP 35.9–36.6; O2SAT 94–100
[2021-07-15] MEDS: LEVOTHYROXINE SODIUM 88 MCG TABLET PO (05:19)
[2021-07-15 05:50] LABS: Basophils Absolute Auto 0.1 K/mm3 (0.0-0.1); Basophils Percent Auto 0.7 % (0.2-1.2); Eosinophils Absolute Auto 0.1 K/mm3 (0-0.3); Eosinophils Percent Auto 0.4 % (0-4.4); Hematocrit 34.1 % (37.0-47.0); Hemoglobin 11.6 g/dL (12.0-15.0); Immature Granulocyte Absolute 0.55 K/mm3 (0.00-0.031); Immature Granulocyte Percent A 2.9 % (0-0.5); Lymphocytes Percent Auto 3.2 % (18.3-44.2); Mean Corpuscular Volume 94.2 fl (80-100); Mean Platelet Volume 9.7 fl (7.4-10.4); Monocytes Absolute Auto 0.7 K/mm3 (0.1-0.6); Monocytes Percent Auto 3.7 % (2.6-8.5); Neutrophils Absolute Auto 16.8 K/mm3 (1.3-6.7); Neutrophils Percent Auto 89.1 % (45.5-73.1); Platelet Count Result 272 k/mm3 (150-375); Red Blood Count 3.62 M/mm3 (4.2-5.4); Red Cell Distribution Width 14.1 % (11.5-14.5); White Blood Count 18.9 K/mm3 (4.5-10.0)
--- NOTE | 2021-07-15 05:52 | PC.NURSE ---
Patient desaturates into the 70's when she uses the bedpan. I talked to her about getting a newman and educated her about how it could help her rest and reserve her energy. She has little reserve and gets very short of breath when using the bedpan. She stated that she would think about it and let us know. I will pass this information to the day shift RN.
[2021-07-15 05:58] LABS: INR 1.4; Prothrombin Time 16.2 Seconds (11.1-14.7)
[2021-07-15 06:07] LABS: Alanine Aminotransferase 22 U/L (4-35); Aspartate Amino Transferase 39 U/L (14-36); Estimated CRCL calculation 37 ml/min; Estimated Glomerular Filt Rate 53
[2021-07-15 08:31] LABS: Anion Gap 7 mmol/L (8-16); Blood Urea Nitrogen 47 mg/dL (7-17); Calcium 8.5 mg/dL (8.4-10.2); Carbon Dioxide 17 mmol/L (22-30); Chloride 102 mmol/L (98-107); Estimated CRCL calculation 41 ml/min; Estimated Glomerular Filt Rate 60; Glucose 99 mg/dL (65-110); Potassium 3.8 mmol/L (3.4-5.0); Sodium 126 mmol/L (137-145)
[2021-07-15] MEDS: UMECLIDINIUM BROMIDE 62.5 MCG ELLIPTA 1 PUFF INHALATION (09:02)
[2021-07-15] MEDS: ALBUTEROL SULFATE (*SP) AEROSOL 1 PUFF 2 PUFF INHALATION ×3 (09:02→20:25)
[2021-07-15] MEDS: ALPRAZolam (*CRX) 0.5 MG TABLET PO (09:41)
[2021-07-15] MEDS: guaiFENesin/CODEINE (*CRX) 200/20 MG 10 ML SYRUP PO ×2 (09:41→14:36)
[2021-07-15] MEDS: PANTOPRAZOLE 40 MG TABLET PO (09:42)
[2021-07-15] MEDS: NIFEdipine 30 MG TAB.ER.24 PO (09:42)
[2021-07-15] MEDS: NYSTATIN 100,000 UNITS/ML SUSP 5 ML ORAL.SUSP PO ×4 (09:43→21:14)
[2021-07-15] MEDS: PRAVASTATIN SODIUM 20 MG TABLET PO (09:43)
[2021-07-15] MEDS: BENZONATATE 100 MG CAPSULE 200 MG PO ×3 (09:43→17:57)
[2021-07-15] MEDS: ENOXAPARIN 40 MG/0.4 ML SYRINGE SUB-Q ×2 (09:44→21:14)
[2021-07-15] MEDS: ASPIRIN 81 MG ENTERIC TABLET PO (09:44)
[2021-07-15] MEDS: LOSARTAN POTASSIUM 25 MG TABLET PO (09:44)
[2021-07-15] MEDS: ACEBUTOLOL HCL 200 MG CAPSULE PO ×2 (09:45→21:14)
[2021-07-15] MEDS: FLUCONAZOLE 150 MG TABLET PO (09:46)
[2021-07-15] MEDS: FLUTICASONE PROPIONATE 0.05% NA SPR 16 GM BTL (*BKC) 2 SPRAY NASAL (09:46)
[2021-07-15] MEDS: hydroCHLOROthiazide 25 MG TABLET PO (09:46)
[2021-07-15] MEDS: traMADol HCL (*CRX) 50 MG TABLET 100 MG PO ×2 (09:56→18:04)
--- NOTE | 2021-07-15 10:13 | PM.PNPUL ---
Progress Note: A&P Additional Plan 80-year-old female immunocompromised with history of CLL chronically on oral steroids has had acute hypoxemic respiratory failure, bilateral extensive patchy infiltrates with some subpleural distribution most likely due to acute COVID-19 infection. Patient was tested positive for COVID-19 infection and received monoclonal antibodies on outpatient basis approximately 2 months ago. Reportedly the patient had fully recovered from the acute covid 19 illness 2 months ago and had been doing well until 4 days ago. 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 On further questioning today the patient again told me that following recovery from the acute illness in May she was having no shortness of breath with activities or any other respiratory symptoms. Shortness of breath started few days prior to coming to the hospital. Again suggesting that the bilateral pulmonary infiltrates are more consistent with acute infection rather than infiltrates related to superimposed organizing pneumonia. Oxygen needs have remained unchanged over the last 24 hours. D-dimer significantly elevated on last testing . If D dimer are related solely to COVID-19 infection and not to history of hemolysis then this high level portends poor prognosis. Chest x-ray taken today essentially unchanged. Because of positive fluid balance I would use gentle diuretic IV. Continue to monitor respiratory status, renal indices. Code(s): R09.02 - Hypoxemia Status: Acute (4) CLL (chronic lymphocytic leukemia): Code(s): C91.10 - Chronic lymphocytic leukemia of B-cell type not having achieved remission Status: Chronic Subjective Date/time seen: 07/15/21 10:13 patient is now in ICU bed but remains IMU patient. has had no new respiratory symptoms continues to complain of dry cough. Shortness of breath unchanged over the last for 8 hours. Remaining on high-flow nasal cannula 60 liters/minute. Receiving treatment with remdesivir dexamethasone and baricitinib. Review of Systems Review of Systems: All systems reviewed & are unremarkable except as noted in HPI and below Exam Narrative: GENERAL APPEARANCE: Well developed, well nourished, alert and cooperative, awho appears to be in mild respiratory distress while receiving oxygen via high flownasal cannula SKIN: Inspection of the skin reveals no rashes, ulcerations. Ecchymotic skin in upper extremities HEENT: Sclerae anicteric and conjunctivae pink and moist. Extraocular movements were intact and pupils were equal, round. CHEST: Normal AP diameter and normal contour without any kyphoscoliosis. LUNGS: Auscultation of the lungs revealed crackles at bases posteriorly no wheezing CARDIAC: There was a regular rate and rhythm without any murmurs. ABDOMEN: Soft and nontender with normal bowel sounds. There was no organomegaly. EXTREMITIES: No cyanosis, clubbing or edema. NEUROLOGIC: Alert, Appears disoriented to time she thinks this is July. Moving all extremities Objective Data Vital Signs Vital Signs: Vital Signs - 24 hr 07/14/21 12:00 07/14/21 14:00 07/14/21 14:27 Temperature 36.6 C Pulse Rate 82 80 82 Respiratory Rate 28 H 23 H Blood Pressure 116/68 Pulse Oximetry 100 07/14/21 16:00 07/14/21 18:00 07/14/21 20:00 Temperature 36.6 C 36.4 C Pulse Rate 79 79 81 Respiratory Rate 21 H 17 Blood Pressure 94/57 L 119/65 Pulse Oximetry 98 95 07/14/21 20:17 07/14/21 20:20 07/14/21 20:23 Temperature Pulse Rate 82 80 83 Respiratory Rate 28 H 28 H Blood Pressure Pulse Oximetry 87 L 95 07/14/21 20:27 07/14/21 22:00 07/15/21 00:00 Temperature 36.4 C Pulse Rate 80 82 78 Respiratory Rate 24 H 24 H Blood Pressure 106/63 Pulse Oximetry 98 07/15/21 00:08 07/15/21 02:00
--- NOTE | 2021-07-15 14:02 | PM.IMPN ---
Progress Note: A&P Assessment and Plan (1) Pneumonia: Qualifiers: Laterality: unspecified laterality Lung location: unspecified part of lung Pneumonia type: due to unspecified organism Qualified Code(s): J18.9 - Pneumonia, unspecified organism Code(s): J18.9 - Pneumonia, unspecified organism Status: Acute Assessment and Plan: -on cefepime to cover PNA and cellulits. was started on Vanc but this was discontinued per pulm -no clear whether patient hasa ctive COVID or if it still abnormal from her COVID that she had in May. 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 - Pharmacy to renally dose. - Sputum cx ordered. - Continue supplemental oxygen and titrate as needed. - Follow VS and trend labs including CBC, CMP, Lactic, Ferritin, CRP, LDH - COVID-19 positive. Unsure if she is in active infection, or if it is from her May documented infection. Will place patient in isolation and monitor. - Combivent inhaler Q6 hours - Albuterol inhaler Q4 hours prn -baricitinib started per pulm 07/14/2021 interval history: patient with history of CLL and chorionically on steroids makes her immunocompromised, initially patient was diagnosed COVID-19 inj and and presented again with shortness of breath is again positive for COVID-19 most likely she is reinfected with COVID-19 patient seen by hotel assistant manager patient has bilateral pulmonary infiltrates suspect acute infection, being treated with cefepime and vancomycin was dc, patient D-dimer is elevated CTA of the chest is negative for PE, this is a poor prognosis, patient is requiring higher level of oxygen, patient being treated dexamethasone, remdesivir and baricitinib, will continue to monitor appreciate pulmonology input. 07/15/2021 interval history: patient with history of CLL and chorionically on steroids makes her immunocompromised, initially patient was diagnosed COVID-19 in may and and presented again with shortness of breath is again positive for COVID-19 most likely she is reinfected with COVID-19 patient seen by hotel assistant manager patient has bilateral pulmonary infiltrates suspect acute infection, being treated with cefepime and vancomycin was dc, patient D-dimer is elevated CTA of the chest is negative for PE, this is a poor prognosis, repeat chest x-ray today shows persistent pneumonia patient is requiring higher level of oxygen, patient being treated dexamethasone, remdesivir and baricitinib, will continue to monitor appreciate pulmonology input. (2) Leukocytosis (leucocytosis): Qualifiers: Leukocytosis type: unspecified Qualified Code(s): D72.829 - Elevated white blood cell count, unspecified Code(s): D72.829 - Elevated white blood cell count, unspecified Status: Acute Assessment and Plan: - Secondary to current PNA as well as COVID and Cellulitis - Monitor labs and vitals and trend labs as noted in problem #1 - UA negative (3) Hypoxia: Code(s): R09.02 - Hypoxemia Status: Acute Assessment and Plan: - 86% On room air. - Provide supplemental Oxygen for support. Goal of >92%. Currently requiring increase in oxygen to 15L NC - Wean oxygen as able to. - Pt. being treated with IV steroids, IV abx and also with Inhalers. - Follow labs and VS. -pulm consulted, appreciate recommendations (4) Cellulitis: Qualifiers: Site of cellulitis: extremity Site of cellulitis of extremity: upper extremity Laterality: left Qualified Code(s): L03.114 - Cellulitis of left upper limb Code(s): L03.90 - Cellulitis, unspecified Status: Acute Assessment and Plan: - Start Vancomycin and Cefepime to be renally dosed by pharmacy. - Monitor labs and VS - Obtain blood cultures x2 prior to start of abx. 07/12/21: Improving redness and warmth. Blood cultures still pending. 07/13/21: vanc stoppe
[2021-07-15] MEDS: BARICITINIB 2 MG TABLET PO (14:35)
[2021-07-15] MEDS: REMDESIVIR 100 MG/NS 250 ML 100 MG/250 ML BAG 125 MG IVPB (21:14)
[2021-07-16] VITALS (23 sets, daily range): BP systolic 93–117; BP diastolic 55–72; PULSE 72–89; RESP 18–29; TEMP 36.9–37.7; O2SAT 83–100
[2021-07-16] MEDS: ALBUTEROL SULFATE (*SP) AEROSOL 1 PUFF 2 PUFF INHALATION ×4 (02:20→20:47)
[2021-07-16 05:19] LABS: Basophils Absolute Auto 0.1 K/mm3 (0.0-0.1); Basophils Percent Auto 0.8 % (0.2-1.2); Hematocrit 31.9 % (37.0-47.0); Hemoglobin 11.2 g/dL (12.0-15.0); Immature Granulocyte Absolute 0.83 K/mm3 (0.00-0.031); Immature Granulocyte Percent A 4.9 % (0-0.5); Lymphocytes Absolute Auto 0.66 K/mm3 (0.9-3.2); Lymphocytes Percent Auto 3.9 % (18.3-44.2); Mean Corpuscular HGB Conc 35.1 g/dl (32-36); Mean Corpuscular Hemoglobin 32.3 pg (26-34); Mean Corpuscular Volume 91.9 fl (80-100); Mean Platelet Volume 9.8 fl (7.4-10.4); Monocytes Absolute Auto 0.6 K/mm3 (0.1-0.6); Monocytes Percent Auto 3.5 % (2.6-8.5); Neutrophils Absolute Auto 14.7 K/mm3 (1.3-6.7); Neutrophils Percent Auto 86.9 % (45.5-73.1); Platelet Count Result 236 k/mm3 (150-375); Red Blood Count 3.47 M/mm3 (4.2-5.4); Red Cell Distribution Width 14.1 % (11.5-14.5)
[2021-07-16] MEDS: LEVOTHYROXINE SODIUM 88 MCG TABLET PO (05:23)
[2021-07-16 05:36] LABS: Alanine Aminotransferase 21 U/L (4-35); Anion Gap 5 mmol/L (8-16); Aspartate Amino Transferase 32 U/L (14-36); Blood Urea Nitrogen 57 mg/dL (7-17); Calcium 8.2 mg/dL (8.4-10.2); Carbon Dioxide 21 mmol/L (22-30); Chloride 100 mmol/L (98-107); Estimated CRCL calculation 34 ml/min; Estimated Glomerular Filt Rate 48; Glucose 117 mg/dL (65-110); Potassium 3.8 mmol/L (3.4-5.0); Sodium 126 mmol/L (137-145)
[2021-07-16 08:44] LABS: CRP 7.9 mg/dL (<1.0)
[2021-07-16] MEDS: DICLOFENAC SODIUM 1% 100 GM GEL (*BKC) 1 APPLIC TOPICAL ×2 (09:00→12:00)
[2021-07-16] MEDS: ALPRAZolam (*CRX) 0.5 MG TABLET PO (09:25)
[2021-07-16] MEDS: guaiFENesin/CODEINE (*CRX) 200/20 MG 10 ML SYRUP PO ×3 (09:25→20:12)
[2021-07-16] MEDS: PRAVASTATIN SODIUM 20 MG TABLET PO (09:26)
[2021-07-16] MEDS: BENZONATATE 100 MG CAPSULE 200 MG PO ×3 (09:26→16:23)
[2021-07-16] MEDS: hydroCHLOROthiazide 25 MG TABLET PO (09:27)
[2021-07-16] MEDS: PANTOPRAZOLE 40 MG TABLET PO (09:28)
[2021-07-16] MEDS: NIFEdipine 30 MG TAB.ER.24 PO (09:28)
[2021-07-16] MEDS: ASPIRIN 81 MG ENTERIC TABLET PO (09:28)
[2021-07-16] MEDS: LOSARTAN POTASSIUM 25 MG TABLET PO (09:29)
[2021-07-16] MEDS: NYSTATIN 100,000 UNITS/ML SUSP 5 ML ORAL.SUSP PO ×4 (09:29→20:12)
[2021-07-16] MEDS: FLUCONAZOLE 150 MG TABLET PO (09:29)
[2021-07-16] MEDS: ACEBUTOLOL HCL 200 MG CAPSULE PO ×2 (09:29→20:12)
[2021-07-16] MEDS: ENOXAPARIN 40 MG/0.4 ML SYRINGE SUB-Q ×2 (09:29→20:12)
[2021-07-16] MEDS: traMADol HCL (*CRX) 50 MG TABLET 100 MG PO ×3 (09:38→20:13)
--- NOTE | 2021-07-16 09:41 | PM.PNPUL ---
Progress Note: A&P Additional Plan 80-year-old female immunocompromised with history of CLL chronically on oral steroids has had acute hypoxemic respiratory failure, bilateral extensive patchy infiltrates with some subpleural distribution most likely due to acute COVID-19 infection. Patient was tested positive for COVID-19 infection and received monoclonal antibodies on outpatient basis approximately 2 months ago. Reportedly the patient had fully recovered from the acute covid 19 illness 2 months ago and had been doing well until 4 days ago. 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 Oxygen needs have remained unchanged over the last 24 hours. CRP trending down. Gas exchange seems to be better although no infiltrate clearing noted on chest x-ray. Because of positive fluid balance I would use Lasix 20 mg IV. Continue to monitor respiratory status, renal indices. Code(s): R09.02 - Hypoxemia Status: Acute (4) CLL (chronic lymphocytic leukemia): Code(s): C91.10 - Chronic lymphocytic leukemia of B-cell type not having achieved remission Status: Chronic Subjective Date/time seen: 07/16/21 09:41 patient has no new respiratory symptoms. Still coughing less than before. No sputum production. She has no wheezing or worsening shortness of breath. remaining on high-flow nasal cannula at 60 liters/minute. Review of Systems Review of Systems: All systems reviewed & are unremarkable except as noted in HPI and below Exam Narrative: GENERAL APPEARANCE: Well developed, well nourished, alert and cooperative, awho appears to be in mild respiratory distress while receiving oxygen via high flownasal cannula SKIN: Inspection of the skin reveals no rashes, ulcerations. Ecchymotic skin in upper extremities HEENT: Sclerae anicteric and conjunctivae pink and moist. Extraocular movements were intact and pupils were equal, round. CHEST: Normal AP diameter and normal contour without any kyphoscoliosis. LUNGS: Auscultation of the lungs revealed crackles at bases posteriorly no wheezing CARDIAC: There was a regular rate and rhythm without any murmurs. ABDOMEN: Soft and nontender with normal bowel sounds. There was no organomegaly. EXTREMITIES: No cyanosis, clubbing or edema. NEUROLOGIC: Alert, Appears disoriented to time she thinks this is July. Moving all extremities Objective Data Vital Signs Vital Signs: Vital Signs - 24 hr 07/15/21 09:45 07/15/21 10:00 07/15/21 12:00 Temperature 36.4 C Pulse Rate 97 83 82 Respiratory Rate 27 H Blood Pressure 101/65 Pulse Oximetry 97 07/15/21 14:00 07/15/21 14:17 07/15/21 14:25 Temperature Pulse Rate 81 86 84 Respiratory Rate 21 H 27 H Blood Pressure Pulse Oximetry 07/15/21 16:00 07/15/21 18:00 07/15/21 18:35 Temperature 35.9 C L Pulse Rate 81 80 Respiratory Rate 24 H Blood Pressure 104/66 Pulse Oximetry 100 94 07/15/21 20:00 07/15/21 20:25 07/15/21 21:14 Temperature 36.4 C Pulse Rate 79 81 82 Respiratory Rate 24 H 28 H Blood Pressure 92/53 L Pulse Oximetry 100 95 07/15/21 22:00 07/16/21 00:00 07/16/21 00:27 Temperature 37.3 C Pulse Rate 81 82 82 Respiratory Rate 24 H Blood Pressure 101/61 Pulse Oximetry 100 83 L 07/16/21 02:00 07/16/21 02:20 07/16/21 04:00 Temperature 37.2 C Pulse Rate 80 82 83 Respiratory Rate 25 H 21 H Blood Pressure 109/60 Pulse Oximetry 95 100 07/16/21 06:00 07/16/21 09:29 Temperature Pulse Rate 87 87 Respiratory Rate Blood Pressure Pulse Oximetry Intake/Output Intake/Output: Intake & Output 07/13/21 07/14/21 07/15/21 07/16/21 23:59 23:59 23:59 23:59 Intake Total 2110 1390 1660 120 Output Total 373 203 4505 851 Balance 1210 990 35 -060 Meds/Results Medications: Active Medications
[2021-07-16 10:02] LABS: INR 1.2
[2021-07-16] MEDS: UMECLIDINIUM BROMIDE 62.5 MCG ELLIPTA 1 PUFF INHALATION (10:06)
[2021-07-16] MEDS: BARICITINIB 2 MG TABLET PO (11:55)
[2021-07-16] MEDS: FUROSEMIDE INJ 40 MG/4 ML VIAL 20 MG IV PUSH (11:55)
[2021-07-16] MEDS: ACETAMINOPHEN 500 MG TABLET 1000 MG PO ×2 (15:00→20:13)
--- NOTE | 2021-07-16 17:50 | PM.IMPN ---
Progress Note: A&P Assessment and Plan (1) Pneumonia: Qualifiers: Laterality: unspecified laterality Lung location: unspecified part of lung Pneumonia type: due to unspecified organism Qualified Code(s): J18.9 - Pneumonia, unspecified organism Code(s): J18.9 - Pneumonia, unspecified organism Status: Acute Assessment and Plan: -on cefepime to cover PNA and cellulits. was started on Vanc but this was discontinued per pulm -no clear whether patient hasa ctive COVID or if it still abnormal from her COVID that she had in May. 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 - Pharmacy to renally dose. - Sputum cx ordered. - Continue supplemental oxygen and titrate as needed. - Follow VS and trend labs including CBC, CMP, Lactic, Ferritin, CRP, LDH - COVID-19 positive. Unsure if she is in active infection, or if it is from her May documented infection. Will place patient in isolation and monitor. 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 07/16/2021 interval history: patient remains clinically stable still requiring high-flow oxygen seen by crusher loader operator prognosis is poor will continue to monitor (2) Leukocytosis (leucocytosis): Qualifiers: Leukocytosis type: unspecified Qualified Code(s): D72.829 - Elevated white blood cell count, unspecified Code(s): D72.829 - Elevated white blood cell count, unspecified Status: Acute Assessment and Plan: - Secondary to current PNA as well as COVID and Cellulitis - Monitor labs and vitals and trend labs as noted in problem #1 - UA negative (3) Hypoxia: Code(s): R09.02 - Hypoxemia Status: Acute Assessment and Plan: - 86% On room air. - Provide supplemental Oxygen for support. Goal of >92%. Currently requiring increase in oxygen to 15L NC - Wean oxygen as able to. - Pt. being treated with IV steroids, IV abx and also with Inhalers. - Follow labs and VS. -pulm consulted, appreciate recommendations (4) Cellulitis: Qualifiers: Site of cellulitis: extremity Site of cellulitis of extremity: upper extremity Laterality: left Qualified Code(s): L03.114 - Cellulitis of left upper limb Code(s): L03.90 - Cellulitis, unspecified Status: Acute Assessment and Plan: - Start Vancomycin and Cefepime to be renally dosed by pharmacy.
[2021-07-16] MEDS: REMDESIVIR 100 MG/NS 250 ML 100 MG/250 ML BAG 250 MG IVPB (20:14)
[2021-07-17] VITALS (21 sets, daily range): BP systolic 88–109; BP diastolic 57–69; PULSE 73–90; RESP 17–26; TEMP 36.6–38; O2SAT 90–100
[2021-07-17] MEDS: ALBUTEROL SULFATE (*SP) AEROSOL 1 PUFF 2 PUFF INHALATION ×4 (02:32→19:26)
[2021-07-17] MEDS: LEVOTHYROXINE SODIUM 88 MCG TABLET PO (06:04)
[2021-07-17] MEDS: UMECLIDINIUM BROMIDE 62.5 MCG ELLIPTA 1 PUFF INHALATION (08:29)
[2021-07-17 08:57] LABS: Hematocrit 35.6 % (37.0-47.0); Hemoglobin 12.3 g/dL (12.0-15.0); Immature Granulocyte Absolute 1.99 K/mm3 (0.00-0.031); Immature Granulocyte Percent A 7.8 % (0-0.5); Lymphocytes Absolute Auto 1.01 K/mm3 (0.9-3.2); Lymphocytes Percent Auto 3.9 % (18.3-44.2); Mean Corpuscular HGB Conc 34.6 g/dl (32-36); Mean Corpuscular Hemoglobin 32.3 pg (26-34); Mean Corpuscular Volume 93.4 fl (80-100); Mean Platelet Volume 9.7 fl (7.4-10.4); Monocytes Absolute Auto 0.6 K/mm3 (0.1-0.6); Monocytes Percent Auto 2.4 % (2.6-8.5); Neutrophils Percent Auto 85.9 % (45.5-73.1); Platelet Count Result 422 k/mm3 (150-375); Red Blood Count 3.81 M/mm3 (4.2-5.4); Red Cell Distribution Width 14.4 % (11.5-14.5); White Blood Count 25.6 K/mm3 (4.5-10.0)
[2021-07-17] MEDS: ACETAMINOPHEN 500 MG TABLET 1000 MG PO ×2 (09:05→17:36)
[2021-07-17] MEDS: guaiFENesin/CODEINE (*CRX) 200/20 MG 10 ML SYRUP PO ×4 (09:05→22:38)
[2021-07-17] MEDS: ALPRAZolam (*CRX) 0.5 MG TABLET PO (09:06)
[2021-07-17] MEDS: traMADol HCL (*CRX) 50 MG TABLET 100 MG PO ×3 (09:06→23:44)
[2021-07-17] MEDS: ACEBUTOLOL HCL 200 MG CAPSULE PO ×2 (09:07→22:36)
[2021-07-17] MEDS: BENZONATATE 100 MG CAPSULE 200 MG PO ×3 (09:07→18:04)
[2021-07-17] MEDS: ENOXAPARIN 40 MG/0.4 ML SYRINGE SUB-Q ×2 (09:07→21:30)
[2021-07-17] MEDS: NIFEdipine 30 MG TAB.ER.24 PO (09:07)
[2021-07-17] MEDS: FLUCONAZOLE 150 MG TABLET PO (09:07)
[2021-07-17] MEDS: NYSTATIN 100,000 UNITS/ML SUSP 5 ML ORAL.SUSP PO ×4 (09:07→22:36)
[2021-07-17] MEDS: LOSARTAN POTASSIUM 25 MG TABLET PO (09:07)
[2021-07-17] MEDS: hydroCHLOROthiazide 25 MG TABLET PO (09:07)
[2021-07-17] MEDS: PANTOPRAZOLE 40 MG TABLET PO (09:07)
[2021-07-17] MEDS: ASPIRIN 81 MG ENTERIC TABLET PO (09:08)
[2021-07-17] MEDS: PRAVASTATIN SODIUM 20 MG TABLET PO (09:08)
[2021-07-17 09:19] LABS: INR 1.4; Prothrombin Time 16.2 Seconds (11.1-14.7)
[2021-07-17 09:29] LABS: Alanine Aminotransferase 22 U/L (4-35); Anion Gap 6 mmol/L (8-16); Aspartate Amino Transferase 32 U/L (14-36); Blood Urea Nitrogen 63 mg/dL (7-17); CRP 5.7 mg/dL (<1.0); Calcium 8.6 mg/dL (8.4-10.2); Carbon Dioxide 22 mmol/L (22-30); Chloride 99 mmol/L (98-107); Estimated CRCL calculation 29 ml/min; Estimated Glomerular Filt Rate 39; Glucose 91 mg/dL (65-110); Sodium 127 mmol/L (137-145)
[2021-07-17 09:44] LABS: D Dimer 5.87 ug/mL (<0.48)
[2021-07-17] MEDS: BARICITINIB 2 MG TABLET PO (11:51)
[2021-07-17] MEDS: DICLOFENAC SODIUM 1% 100 GM GEL (*BKC) 1 APPLIC TOPICAL ×3 (11:52→21:30)
--- NOTE | 2021-07-17 12:54 | PM.IMPN ---
Progress Note: A&P Assessment and Plan (1) Pneumonia: Qualifiers: Laterality: unspecified laterality Lung location: unspecified part of lung Pneumonia type: due to unspecified organism Qualified Code(s): J18.9 - Pneumonia, unspecified organism Code(s): J18.9 - Pneumonia, unspecified organism Status: Acute Assessment and Plan: -on cefepime to cover PNA and cellulits. was started on Vanc but this was discontinued per pulm -no clear whether patient hasa ctive COVID or if it still abnormal from her COVID that she had in May. 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 - Pharmacy to renally dose. - Sputum cx ordered. - Continue supplemental oxygen and titrate as needed. - Follow VS and trend labs including CBC, CMP, Lactic, Ferritin, CRP, LDH - COVID-19 positive. Unsure if she is in active infection, or if it is from her May documented infection. Will place patient in isolation and monitor. 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 07/15/2021 interval history: patient with history of CLL and chorionically on steroids makes her immunocompromised, initially patient was diagnosed COVID-19 in may and and presented again with shortness of breath is again positive for COVID-19 most likely she is reinfected with COVID-19 patient seen by drafter heating and ventilating patient has bilateral pulmonary infiltrates suspect acute infection, being treated with cefepime and vancomycin was dc, patient D-dimer is elevated CTA of the chest is negative for PE, this is a poor prognosis, repeat chest x-ray today shows persistent pneumonia patient is requiring higher level of oxygen, patient being treated dexamethasone, remdesivir and baricitinib, will continue to monitor appreciate pulmonology input. 07/16/2021 interval history: patient remains clinically stable still requiring high-flow oxygen seen by drafter heating and ventilating prognosis is poor will continue to monitor. 07/17/2021 interval history: patient remains clinically stable still requiring high-flow oxygen, plan today is to slowly wean patient off oxygen if she can tolerate, seen by drafter heating and ventilating prognosis is poor will continue to monitor (2) Leukocytosis (leucocytosis): Qualifiers: Leukocytosis type: unspecified Qualified Code(s): D72.829 - Elevated white blood cell count, unspecified Code(s): D72.829 - Elevated white blood cell count, unspecified Status: Acute Assessment and Plan: - Secondary to current PNA as well as COVID and Cellulitis - Monitor labs and vitals and trend labs as noted in problem #1 - UA negative (3) Hypoxia: Code(s): R09.02 - Hypoxemia Status: Acute Assessment and Plan: - 86% On room air. - Provide supplemental Oxygen for support. Goal of >92%. Currently requiring increase in oxygen to 15L NC - Wean oxygen as able to. - Pt. being treated with IV steroids, IV abx and also with Inhalers. - Follow labs and VS. -pulm consulted, appreciate recommendations (4) Cellulitis: Qualifiers: Site of cellulitis: extremity Site of cellulitis of extremity: upper extremity Late
[2021-07-17] MEDS: GABAPENTIN 100 MG CAPSULE PO ×2 (13:11→17:36)
--- NOTE | 2021-07-17 15:42 | PM.PNPUL ---
Progress Note: A&P Assessment and Plan (1) COVID-19: Code(s): U07.1 - COVID-19 Status: Acute (2) Pneumonia: Qualifiers: Laterality: unspecified laterality Lung location: unspecified part of lung Pneumonia type: due to unspecified organism Qualified Code(s): J18.9 - Pneumonia, unspecified organism Code(s): J18.9 - Pneumonia, unspecified organism Status: Acute Assessment and Plan: 80-year-old female Immunocompromised with history of CLL chronically on oral steroids has had acute hypoxemic respiratory failure, bilateral extensive patchy infiltrates with some subpleural distribution most likely due to acute COVID-19 infection. Patient was tested positive for COVID-19 infection and received monoclonal antibodies on outpatient basis approximately 2 months ago. Reportedly the patient had fully recovered from the acute covid 19 illness 2 months ago and had been doing well until 5 days ago. 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 The bilateral pulmonary infiltrates are more consistent with acute infection rather than infiltrates related to superimposed organizing pneumonia. Plan is as follows. The patient is still receiving 60 L/min and 90% on an AirVo system. Agree with remdesivir and IV dexamethasone. Will monitor respiratory status and may consider adding anti L6 treatment or baricitinib if oxygen needs escalate over the next few days. Monitor CRP, D-dimers and continue with DVT prophylaxis. Continue with current antibiotic regimen for now and limit administration of IV fluids as patient is taking fluids p.o.. Will follow the patient along with you. (3) Hypoxia: Code(s): R09.02 - Hypoxemia Status: Acute Assessment and Plan: See above. She is still on high amounts of O2, CXR is ugly however CRP is lower. (4) CLL (chronic lymphocytic leukemia): Code(s): C91.10 - Chronic lymphocytic leukemia of B-cell type not having achieved remission Status: Chronic Assessment and Plan: HAs had for 12 years, followed by Dr Castellon. Subjective Date/time seen: 07/17/21 15:42 This 80 year old female is seen in follow up for recurrent COVID pneumonia and acute respiratory failure. She is sitting in a chair on oxygen using AirVo, saturates well until she moves, then has no reserve. She complains of having no appetite, tender nasal passages with mild bleeding from the O2 flow, dry lips. She is in good spirits. CRP is progressively decreasing, 5.7 now, from 25 on admission 07/12/21 Review of Systems Review of Systems: All systems reviewed & are unremarkable except as noted in HPI and below Exam Narrative: GENERAL APPEARANCE: Well developed, well nourished, alert and cooperative, who appears to be in mild respiratory distress while receiving oxygen via high flownasal cannula CHEST: Normal AP diameter and normal contour without any kyphoscoliosis. LUNGS: Auscultation of the lungs revealed crackles at bases posteriorly no wheezing CARDIAC: There was a regular rate and rhythm without any murmurs. ABDOMEN: Soft and nontender with normal bowel sounds. There was no organomegaly. EXTREMITIES: No cyanosis, clubbing or edema. NEUROLOGIC: Alert, moving all extremities Objective Data Vital Signs Vital Signs: Vital Signs - 24 hr 07/16/21 16:00 07/16/21 16:46 07/16/21 18:00 Temperature 37.6 C H 37.6 C H Pulse Rate 86 79 Respiratory Rate 23 H Blood Pressure 93/55 L Pulse Oximetry 93 07/16/21 20:00 07/16/21 20:12 07/16/21 20:47 Temperature 36.9 C Pulse Rate 77 82 73 Respiratory Rate 18 22 H Blood Pressure 104/63 Pulse Oximetry 100 07/16/21 20:50 07/16/21 21:
[2021-07-17] MEDS: SODIUM CHLORIDE NASAL GEL 14.1 GM 1 APPLIC NASAL ×2 (17:36→21:30)
[2021-07-17] MEDS: REMDESIVIR 100 MG/NS 250 ML 100 MG/250 ML BAG 250 MG IVPB (21:37)
[2021-07-17] MEDS: ZOLPIDEM TARTRATE (*CRX) 5 MG TABLET PO (22:37)
[2021-07-18] VITALS (21 sets, daily range): BP systolic 92–111; BP diastolic 60–66; PULSE 77–92; RESP 16–28; TEMP 36.7–37.6; O2SAT 90–99
[2021-07-18] MEDS: ALBUTEROL SULFATE (*SP) AEROSOL 1 PUFF 2 PUFF INHALATION ×4 (01:40→19:52)
[2021-07-18] MEDS: LEVOTHYROXINE SODIUM 88 MCG TABLET PO (06:34)
[2021-07-18] MEDS: traMADol HCL (*CRX) 50 MG TABLET 100 MG PO ×3 (06:35→21:18)
[2021-07-18 08:20] LABS: Basophils Absolute Auto 0.2 K/mm3 (0.0-0.1); Basophils Percent Auto 0.9 % (0.2-1.2); Hematocrit 34.1 % (37.0-47.0); Hemoglobin 11.6 g/dL (12.0-15.0); Immature Granulocyte Absolute 1.38 K/mm3 (0.00-0.031); Immature Granulocyte Percent A 6.6 % (0-0.5); Lymphocytes Absolute Auto 0.48 K/mm3 (0.9-3.2); Lymphocytes Percent Auto 2.3 % (18.3-44.2); Mean Corpuscular Hemoglobin 31.7 pg (26-34); Mean Corpuscular Volume 93.2 fl (80-100); Mean Platelet Volume 9.8 fl (7.4-10.4); Monocytes Absolute Auto 0.4 K/mm3 (0.1-0.6); Monocytes Percent Auto 1.8 % (2.6-8.5); Neutrophils Absolute Auto 18.5 K/mm3 (1.3-6.7); Neutrophils Percent Auto 88.4 % (45.5-73.1); Platelet Count Result 346 k/mm3 (150-375); Red Blood Count 3.66 M/mm3 (4.2-5.4); Red Cell Distribution Width 14.2 % (11.5-14.5)
[2021-07-18 08:30] LABS: INR 1.3; Prothrombin Time 15.2 Seconds (11.1-14.7)
[2021-07-18] MEDS: UMECLIDINIUM BROMIDE 62.5 MCG ELLIPTA 1 PUFF INHALATION (08:31)
[2021-07-18 09:03] LABS: Alanine Aminotransferase 19 U/L (4-35); Anion Gap 6 mmol/L (8-16); Aspartate Amino Transferase 33 U/L (14-36); Blood Urea Nitrogen 58 mg/dL (7-17); Calcium 8.2 mg/dL (8.4-10.2); Carbon Dioxide 20 mmol/L (22-30); Chloride 98 mmol/L (98-107); Estimated CRCL calculation 34 ml/min; Estimated Glomerular Filt Rate 48; Glucose 70 mg/dL (65-110); Potassium 4.1 mmol/L (3.4-5.0); Sodium 124 mmol/L (137-145)
[2021-07-18] MEDS: ACETAMINOPHEN 500 MG TABLET 1000 MG PO (09:19)
[2021-07-18] MEDS: guaiFENesin/CODEINE (*CRX) 200/20 MG 10 ML SYRUP PO ×3 (09:19→17:51)
[2021-07-18] MEDS: ALPRAZolam (*CRX) 0.5 MG TABLET PO (09:21)
[2021-07-18] MEDS: FLUCONAZOLE 150 MG TABLET PO (09:21)
[2021-07-18] MEDS: GABAPENTIN 100 MG CAPSULE PO ×3 (09:21→17:22)
[2021-07-18] MEDS: SODIUM CHLORIDE NASAL GEL 14.1 GM 1 APPLIC NASAL (09:21)
[2021-07-18] MEDS: NYSTATIN 100,000 UNITS/ML SUSP 5 ML ORAL.SUSP PO ×4 (09:22→21:15)
[2021-07-18] MEDS: PANTOPRAZOLE 40 MG TABLET PO (09:22)
[2021-07-18] MEDS: PRAVASTATIN SODIUM 20 MG TABLET PO (09:22)
[2021-07-18] MEDS: BENZONATATE 100 MG CAPSULE 200 MG PO ×3 (09:22→17:22)
[2021-07-18] MEDS: ENOXAPARIN 40 MG/0.4 ML SYRINGE SUB-Q ×2 (09:22→21:15)
[2021-07-18] MEDS: LOSARTAN POTASSIUM 25 MG TABLET PO (09:23)
[2021-07-18] MEDS: ASPIRIN 81 MG ENTERIC TABLET PO (09:23)
[2021-07-18] MEDS: hydroCHLOROthiazide 25 MG TABLET PO (09:23)
[2021-07-18] MEDS: ACEBUTOLOL HCL 200 MG CAPSULE PO ×2 (09:23→21:17)
[2021-07-18] MEDS: NIFEdipine 30 MG TAB.ER.24 PO (09:24)
--- NOTE | 2021-07-18 09:48 | PM.PNPUL ---
Progress Note: A&P Assessment and Plan (1) COVID-19: Code(s): U07.1 - COVID-19 Status: Acute Assessment and Plan: Re-infection; had COVID with treatment including monoclonal antibodies 2 months ago, improved to baseline and now has recurrent symptoms and positive COVID testing. (2) Pneumonia: Qualifiers: Laterality: unspecified laterality Lung location: unspecified part of lung Pneumonia type: due to unspecified organism Qualified Code(s): J18.9 - Pneumonia, unspecified organism Code(s): J18.9 - Pneumonia, unspecified organism Status: Acute Assessment and Plan: 80-year-old female Immunocompromised with history of CLL chronically on oral steroids has had acute hypoxemic respiratory failure, bilateral extensive patchy infiltrates with some subpleural distribution most likely due to acute COVID-19 infection. Patient was tested positive for COVID-19 infection and received monoclonal antibodies on outpatient basis approximately 2 months ago. Reportedly the patient had fully recovered from the acute covid 19 illness 2 months ago and had been doing well until 5 days ago. 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 The bilateral pulmonary infiltrates are more consistent with acute infection rather than infiltrates related to superimposed organizing pneumonia. Plan is as follows. The patient is still receiving 60 L/min and 90% on an AirVo system. Continue remdesivir and IV dexamethasone. She started baricitinib Jul 13. WBC is down 21 K compared to 25.6 K yesterday. Na+ is lower, 124, discussed with Dr Powers. He is starting salt tablets. She is not getting fluids, standard COVID management to avoid excessive pulmonary edema. Continue DVT prophylaxis. Will follow the patient along with you. (3) Hypoxia: Code(s): R09.02 - Hypoxemia Status: Acute Assessment and Plan: See above. She is still on high amounts of O2, CXR is ugly however CRP is lower. (4) CLL (chronic lymphocytic leukemia): Code(s): C91.10 - Chronic lymphocytic leukemia of B-cell type not having achieved remission Status: Chronic Assessment and Plan: Has had for 12 years, followed by Dr Castellon. Subjective Date/time seen: 07/18/21 09:48 This 80 year old female is seen in follow up for recurrent COVID pneumonia and acute respiratory failure. She is immunosuppressed, so she cannot respond to treatment for COVID. She had 2 vaccinations but not the booster. She is in bed, on oxygen using AirVo, saturates well until she moves, has no reserve. She still has no appetite, tender nasal passages with mild bleeding from the O2 flow, and dry lips. She is in good spirits. She wants to get into the chair. Yesterday, she was able to sit in the chair 2 and a half hours. She is not comfortable being prone, and this probably would not help at this point. Prone positioning works better early in COVID. Review of Systems Review of Systems: All systems reviewed & are unremarkable except as noted in HPI and below Exam Narrative: GENERAL APPEARANCE: Well developed, well nourished, alert and cooperative, who appears to be in mild respiratory distress while receiving oxygen via high flow nasal cannula. She has thin bloody secretions from her left nostril. CHEST: Normal AP diameter and normal contour without any kyphoscoliosis. LUNGS: Auscultation of the lungs revealed crackles at bases posteriorly no wheezing CARDIAC: There was a regular rate and rhythm without any murmurs. ABDOMEN: Soft and nontender with normal bowel sounds. There was no organomegaly. EXTREMITIES: No
[2021-07-18] MEDS: BARICITINIB 2 MG TABLET PO (11:00)
--- NOTE | 2021-07-18 12:48 | PM.IMPN ---
Progress Note: A&P Assessment and Plan (1) Pneumonia: Qualifiers: Laterality: unspecified laterality Lung location: unspecified part of lung Pneumonia type: due to unspecified organism Qualified Code(s): J18.9 - Pneumonia, unspecified organism Code(s): J18.9 - Pneumonia, unspecified organism Status: Acute Assessment and Plan: -on cefepime to cover PNA and cellulits. was started on Vanc but this was discontinued per pulm -no clear whether patient hasa ctive COVID or if it still abnormal from her COVID that she had in May. 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 - Pharmacy to [facility] dose. - Sputum cx ordered. - Continue supplemental oxygen and titrate as needed. - Follow VS and trend labs including CBC, CMP, Lactic, Ferritin, CRP, LDH - COVID-19 positive. Unsure if she is in active infection, or if it is from her May documented infection. Will place patient in isolation and monitor. - Combivent inhaler Q6 hours - Albuterol inhaler Q4 hours prn -baricitinib started per pulm 07/14/2021 interval history: patient with history of CLL and chorionically on steroids makes her immunocompromised, initially patient was diagnosed COVID-19 inj and and presented again with shortness of breath is again positive for COVID-19 most likely she is reinfected with COVID-19 patient seen by brickmason contractor patient has bilateral pulmonary infiltrates suspect acute infection, being treated with cefepime and vancomycin was dc, patient D-dimer is elevated CTA of the chest is negative for PE, this is a poor prognosis, patient is requiring higher level of oxygen, patient being treated dexamethasone, remdesivir and baricitinib, will continue to monitor appreciate pulmonology input. 07/15/2021 interval history: patient with history of CLL and chorionically on steroids makes her immunocompromised, initially patient was diagnosed COVID-19 in may and and presented again with shortness of breath is again positive for COVID-19 most likely she is reinfected with COVID-19 patient seen by brickmason contractor patient has bilateral pulmonary infiltrates suspect acute infection, being treated with cefepime and vancomycin was dc, patient D-dimer is elevated CTA of the chest is negative for PE, this is a poor prognosis, repeat chest x-ray today shows persistent pneumonia patient is requiring higher level of oxygen, patient being treated dexamethasone, remdesivir and baricitinib, will continue to monitor appreciate pulmonology input. 07/16/2021 interval history: patient remains clinically stable still requiring high-flow oxygen seen by brickmason contractor prognosis is poor will continue to monitor. 07/17/2021 interval history: patient remains clinically stable still requiring high-flow oxygen, plan today is to slowly wean patient off oxygen if she can tolerate, seen by brickmason contractor prognosis is poor will continue to monitor. 07/18/2021 interval history: patient remains clinically stable still requiring high-flow oxygen, plan was to slowly wean patient off oxygen if she can tolerate, however patient still requiring high-flow oxygen, patient has hypopnea her p.o. intake is very poor unable to hydrate the patient to prevent volume overload, will start the patient sodium chloride tablet 1 g b.i.d. and monitor, patient has expressed to nursing staff patient does not want to be intubated, will verify with family member patient remains full code, seen by brickmason contractor prognosis is poor will continue to monitor. (2) Leukocytosis (leucocytosis): Qualifiers: Leukocytosis type: unspecified Qualified Code(s): D72.829 - Elevated white blood cell count, unspecified Code(s): D72.829 - Elevated white blood cell count, unspecified Status: Acute Assessment and Plan: - Secondary to current PNA as well as COVID and Cellulitis - Monitor l
[2021-07-18] MEDS: SODIUM CHLORIDE 1 GM TABLET PO ×2 (14:27→17:25)
--- NOTE | 2021-07-18 15:11 | PCPTNOTE ---
Attempted physical therapy evaluation. Per RN, patient resting at this time and request that therapy return tomorrow. Per RN, RN will get patient up to chair once awake.
[2021-07-18] MEDS: ZOLPIDEM TARTRATE (*CRX) 5 MG TABLET PO (21:17)
[2021-07-18] MEDS: REMDESIVIR 100 MG/NS 250 ML 100 MG/250 ML BAG 250 MG IVPB (21:17)
[2021-07-19] VITALS (24 sets, daily range): BP systolic 90–110; BP diastolic 53–89; PULSE 75–96; RESP 18–34; TEMP 36.8–38.2; O2SAT 89–96; BMI 10.0
[2021-07-19] MEDS: ALBUTEROL SULFATE (*SP) AEROSOL 1 PUFF 2 PUFF INHALATION ×4 (02:12→21:04)
[2021-07-19 04:50] LABS: Hematocrit 33.4 % (37.0-47.0); Hemoglobin 11.5 g/dL (12.0-15.0); Immature Granulocyte Absolute 1.31 K/mm3 (0.00-0.031); Immature Granulocyte Percent A 5.1 % (0-0.5); Lymphocytes Absolute Auto 0.51 K/mm3 (0.9-3.2); Mean Corpuscular HGB Conc 34.4 g/dl (32-36); Mean Platelet Volume 10.1 fl (7.4-10.4); Monocytes Absolute Auto 0.4 K/mm3 (0.1-0.6); Monocytes Percent Auto 1.6 % (2.6-8.5); Neutrophils Absolute Auto 23.6 K/mm3 (1.3-6.7); Neutrophils Percent Auto 91.3 % (45.5-73.1); Platelet Count Result 341 k/mm3 (150-375); Red Blood Count 3.59 M/mm3 (4.2-5.4); Red Cell Distribution Width 14.2 % (11.5-14.5); White Blood Count 25.8 K/mm3 (4.5-10.0)
[2021-07-19 05:03] LABS: Alanine Aminotransferase 19 U/L (4-35); Anion Gap 6 mmol/L (8-16); Aspartate Amino Transferase 32 U/L (14-36); Blood Urea Nitrogen 55 mg/dL (7-17); Calcium 7.8 mg/dL (8.4-10.2); Carbon Dioxide 21 mmol/L (22-30); Chloride 99 mmol/L (98-107); Estimated CRCL calculation 37 ml/min; Estimated Glomerular Filt Rate 53; Glucose 93 mg/dL (65-110); Potassium 3.9 mmol/L (3.4-5.0); Sodium 126 mmol/L (137-145)
[2021-07-19 05:15] LABS: INR 1.3; Prothrombin Time 15.5 Seconds (11.1-14.7)
[2021-07-19 05:16] LABS: Acanthocytes 2+ (NORMAL); Anisocytosis 1+ (NORMAL); Platelet Estimate Adequate (Adequate)
[2021-07-19] MEDS: LEVOTHYROXINE SODIUM 88 MCG TABLET PO (06:09)
[2021-07-19] MEDS: ALPRAZolam (*CRX) 0.5 MG TABLET PO (08:01)
[2021-07-19] MEDS: SODIUM CHLORIDE 1 GM TABLET PO ×2 (08:02→17:21)
[2021-07-19] MEDS: ENOXAPARIN 40 MG/0.4 ML SYRINGE SUB-Q ×2 (08:02→20:28)
[2021-07-19] MEDS: LOSARTAN POTASSIUM 25 MG TABLET PO (08:16)
[2021-07-19] MEDS: PRAVASTATIN SODIUM 20 MG TABLET PO (08:16)
[2021-07-19] MEDS: BENZONATATE 100 MG CAPSULE 200 MG PO ×3 (08:16→17:21)
[2021-07-19] MEDS: DICYCLOMINE HCL 10 MG CAPSULE 20 MG PO (08:17)
[2021-07-19] MEDS: GABAPENTIN 100 MG CAPSULE PO ×3 (08:17→17:21)
[2021-07-19] MEDS: PANTOPRAZOLE 40 MG TABLET PO (08:17)
[2021-07-19] MEDS: hydroCHLOROthiazide 25 MG TABLET PO (08:17)
[2021-07-19] MEDS: ACEBUTOLOL HCL 200 MG CAPSULE PO ×2 (08:18→20:28)
[2021-07-19] MEDS: NIFEdipine 30 MG TAB.ER.24 PO (08:18)
[2021-07-19] MEDS: FLUCONAZOLE 150 MG TABLET PO (08:18)
[2021-07-19] MEDS: ASPIRIN 81 MG ENTERIC TABLET PO (08:18)
[2021-07-19] MEDS: NYSTATIN 100,000 UNITS/ML SUSP 5 ML ORAL.SUSP PO ×4 (08:19→20:31)
[2021-07-19] MEDS: traMADol HCL (*CRX) 50 MG TABLET 100 MG PO ×2 (08:20→20:43)
[2021-07-19] MEDS: SODIUM CHLORIDE NASAL GEL 14.1 GM 1 APPLIC NASAL ×2 (08:21→17:21)
[2021-07-19] MEDS: UMECLIDINIUM BROMIDE 62.5 MCG ELLIPTA 1 PUFF INHALATION (08:44)
[2021-07-19 09:46] LABS: Toxigenic C. Diff NEGATIVE (NEGATIVE)
[2021-07-19] MEDS: BARICITINIB 2 MG TABLET PO (10:47)
[2021-07-19] MEDS: ACETAMINOPHEN 500 MG TABLET 1000 MG PO (10:47)
--- NOTE | 2021-07-19 11:43 | PM.IMPN ---
Progress Note: A&P Assessment and Plan (1) Pneumonia: Qualifiers: Laterality: unspecified laterality Lung location: unspecified part of lung Pneumonia type: due to unspecified organism Qualified Code(s): J18.9 - Pneumonia, unspecified organism Code(s): J18.9 - Pneumonia, unspecified organism Status: Acute Assessment and Plan: -on cefepime to cover PNA and cellulits. was started on Vanc but this was discontinued per pulm -no clear whether patient hasa ctive COVID or if it still abnormal from her COVID that she had in May. 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 - Pharmacy to [facility] dose. - Sputum cx ordered. - Continue supplemental oxygen and titrate as needed. - Follow VS and trend labs including CBC, CMP, Lactic, Ferritin, CRP, LDH - COVID-19 positive. Unsure if she is in active infection, or if it is from her May documented infection. Will place patient in isolation and monitor. - Combivent inhaler Q6 hours - Albuterol inhaler Q4 hours prn -baricitinib started per pulm 07/14/2021 interval history: patient with history of CLL and chorionically on steroids makes her immunocompromised, initially patient was diagnosed COVID-19 inj and and presented again with shortness of breath is again positive for COVID-19 most likely she is reinfected with COVID-19 patient seen by vest maker patient has bilateral pulmonary infiltrates suspect acute infection, being treated with cefepime and vancomycin was dc, patient D-dimer is elevated CTA of the chest is negative for PE, this is a poor prognosis, patient is requiring higher level of oxygen, patient being treated dexamethasone, remdesivir and baricitinib, will continue to monitor appreciate pulmonology input. 07/15/2021 interval history: patient with history of CLL and chorionically on steroids makes her immunocompromised, initially patient was diagnosed COVID-19 in may and and presented again with shortness of breath is again positive for COVID-19 most likely she is reinfected with COVID-19 patient seen by vest maker patient has bilateral pulmonary infiltrates suspect acute infection, being treated with cefepime and vancomycin was dc, patient D-dimer is elevated CTA of the chest is negative for PE, this is a poor prognosis, repeat chest x-ray today shows persistent pneumonia patient is requiring higher level of oxygen, patient being treated dexamethasone, remdesivir and baricitinib, will continue to monitor appreciate pulmonology input. 07/16/2021 interval history: patient remains clinically stable still requiring high-flow oxygen seen by vest maker prognosis is poor will continue to monitor. 07/17/2021 interval history: patient remains clinically stable still requiring high-flow oxygen, plan today is to slowly wean patient off oxygen if she can tolerate, seen by vest maker prognosis is poor will continue to monitor. 07/18/2021 interval history: patient remains clinically stable still requiring high-flow oxygen, plan was to slowly wean patient off oxygen if she can tolerate, however patient still requiring high-flow oxygen, patient has hypopnea her p.o. intake is very poor unable to hydrate the patient to prevent volume overload, will start the patient sodium chloride tablet 1 g b.i.d. and monitor, patient has expressed to nursing staff patient does not want to be intubated, will verify with family member patient remains full code, seen by vest maker prognosis is poor will continue to monitor. 07/19/2021 interval history: patient remains clinically stable still requiring high-flow oxygen, plan was to slowly wean patient off oxygen if she can tolerate, however patient still requiring high-flow oxygen,Today discussed with the vest maker patient has a low-grade fever recommended to order procalcitonin and CRP, currently patient is on Cefepime will contin
[2021-07-19 12:06] LABS: CRP 7.2 mg/dL (<1.0)
[2021-07-19 12:44] LABS: Erythrocyte Sedimentation Rate 53 mm/hr (0-20)
[2021-07-19 12:50] LABS: Procalcitonin 0.9 ng/mL
--- NOTE | 2021-07-19 13:00 | PM.PNPUL ---
Progress Note: A&P Assessment and Plan (1) COVID-19: Code(s): U07.1 - COVID-19 Status: Acute Assessment and Plan: Re-infection; had COVID with treatment including monoclonal antibodies 2 months ago, improved to baseline and now has recurrent symptoms and positive COVID testing. (2) Pneumonia: Qualifiers: Laterality: unspecified laterality Lung location: unspecified part of lung Pneumonia type: due to unspecified organism Qualified Code(s): J18.9 - Pneumonia, unspecified organism Code(s): J18.9 - Pneumonia, unspecified organism Status: Acute Assessment and Plan: 80-year-old female Immunocompromised with history of CLL chronically on oral steroids has had acute hypoxemic respiratory failure, bilateral extensive patchy infiltrates with some subpleural distribution most likely due to acute COVID-19 infection. Patient was tested positive for COVID-19 infection and received monoclonal antibodies on outpatient basis approximately 2 months ago. 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 The bilateral pulmonary infiltrates are more consistent with acute infection rather than infiltrates related to superimposed organizing pneumonia. Plan is as follows. The patient is still receiving 60 L/min and 90% on an AirVo system. Continue remdesivir and IV dexamethasone. She started baricitinib Jul 13. Chest x-ray done today showed no significant clearing of infiltrates. Overall infiltrates unchanged. Has been running low-grade temperature since this a.m. but has no new respiratory symptoms. Has been on broad-spectrum antibiotic. Low-grade fever was discussed with Dr. Powers. Will continue with current treatment for now and monitor the patient for signs of sepsis. monitor CRP, procalcitonin. (3) Hypoxia: Code(s): R09.02 - Hypoxemia Status: Acute Assessment and Plan: See above. She is still on high amounts of O2, CXR is ugly however CRP is lower. (4) CLL (chronic lymphocytic leukemia): Code(s): C91.10 - Chronic lymphocytic leukemia of B-cell type not having achieved remission Status: Chronic Assessment and Plan: Has had for 12 years, followed by Dr Castellon. Subjective Date/time seen: 07/19/21 13:00 Patient has had no new respiratory symptoms. She remains on high-flow nasal cannula. She continues to have mild cough with no sputum production. Low-grade temperature today. Patient requested DNR. Review of Systems Review of Systems: All systems reviewed & are unremarkable except as noted in HPI and below Exam Narrative: GENERAL APPEARANCE: Well developed, well nourished, alert and cooperative, who appears to be in mild respiratory distress while receiving oxygen via high flow nasal cannula. CHEST: Normal AP diameter and normal contour without any kyphoscoliosis. LUNGS: Auscultation of the lungs revealed crackles at bases posteriorly no wheezing CARDIAC: There was a regular rate and rhythm without any murmurs. ABDOMEN: Soft and nontender with normal bowel sounds. There was no organomegaly. EXTREMITIES: No cyanosis, clubbing or edema. NEUROLOGIC: Alert, moving all extremities Objective Data Vital Signs Vital Signs: Vital Signs - 24 hr 07/18/21 14:00 07/18/21 16:00 07/18/21 17:42 Temperature 37.1 C Pulse Rate 80 81 87 Respiratory Rate 21 H 18 20 Blood Pressure 95/60 L Pulse Oximetry 95 92 07/18/21 18:00 07/18/21 19:52 07/18/21 20:00 Temperature 37.3 C
[2021-07-19] MEDS: REMDESIVIR 100 MG/NS 250 ML 100 MG/250 ML BAG 250 MG IVPB (20:48)
[2021-07-19] MEDS: ZOLPIDEM TARTRATE (*CRX) 5 MG TABLET PO (21:58)
[2021-07-20] VITALS (20 sets, daily range): BP systolic 93–109; BP diastolic 59–67; PULSE 72–102; RESP 18–30; TEMP 36.7–38.7; O2SAT 88–97; BMI 28.7
[2021-07-20] MEDS: ACETAMINOPHEN 500 MG TABLET 1000 MG PO ×2 (02:14→08:52)
[2021-07-20] MEDS: ALBUTEROL SULFATE (*SP) AEROSOL 1 PUFF 2 PUFF INHALATION ×4 (02:56→20:00)
[2021-07-20 04:56] LABS: Hematocrit 33.7 % (37.0-47.0); Hemoglobin 11.7 g/dL (12.0-15.0); Mean Corpuscular HGB Conc 34.7 g/dl (32-36); Mean Corpuscular Hemoglobin 31.5 pg (26-34); Mean Corpuscular Volume 90.8 fl (80-100); Mean Platelet Volume 10.3 fl (7.4-10.4); Platelet Count Result 422 k/mm3 (150-375); Red Blood Count 3.71 M/mm3 (4.2-5.4); Red Cell Distribution Width 14.2 % (11.5-14.5); White Blood Count 30.5 K/mm3 (4.5-10.0)
[2021-07-20 05:16] LABS: INR 1.4; Prothrombin Time 16.7 Seconds (11.1-14.7)
[2021-07-20 05:19] LABS: Alanine Aminotransferase 20 U/L (4-35); Aspartate Amino Transferase 37 U/L (14-36); Estimated CRCL calculation 37 ml/min; Estimated Glomerular Filt Rate 53
[2021-07-20 05:45] LABS: Band Neutrophils Percent 5 % (0-6); Lymphocytes Absolute Manual 0.91 K/mm3 (1.1-4.5); Neutrophils Absolute Manual 29.58 K/mm3 (1.7-7.2); Neutrophils Percent Manual 92 % (46-73); Total Cells Counted 100
[2021-07-20] MEDS: LEVOTHYROXINE SODIUM 88 MCG TABLET PO (06:24)
[2021-07-20] MEDS: UMECLIDINIUM BROMIDE 62.5 MCG ELLIPTA 1 PUFF INHALATION (07:55)
[2021-07-20] MEDS: BENZONATATE 100 MG CAPSULE 200 MG PO ×3 (08:52→14:36)
[2021-07-20] MEDS: ALPRAZolam (*CRX) 0.5 MG TABLET PO (08:52)
[2021-07-20] MEDS: DICYCLOMINE HCL 10 MG CAPSULE 20 MG PO (08:53)
[2021-07-20] MEDS: FLUCONAZOLE 150 MG TABLET PO (08:53)
[2021-07-20] MEDS: ASPIRIN 81 MG ENTERIC TABLET PO (08:54)
[2021-07-20] MEDS: PANTOPRAZOLE 40 MG TABLET PO (08:54)
[2021-07-20] MEDS: SODIUM CHLORIDE 1 GM TABLET PO ×2 (08:54→17:35)
[2021-07-20] MEDS: ACEBUTOLOL HCL 200 MG CAPSULE PO ×2 (08:54→21:14)
[2021-07-20] MEDS: GABAPENTIN 100 MG CAPSULE PO ×3 (08:54→17:35)
[2021-07-20] MEDS: NIFEdipine 30 MG TAB.ER.24 PO (08:55)
[2021-07-20] MEDS: ENOXAPARIN 40 MG/0.4 ML SYRINGE SUB-Q ×2 (08:55→21:13)
[2021-07-20] MEDS: PRAVASTATIN SODIUM 20 MG TABLET PO (08:55)
[2021-07-20] MEDS: NYSTATIN 100,000 UNITS/ML SUSP 5 ML ORAL.SUSP PO ×3 (08:55→21:14)
[2021-07-20] MEDS: LOSARTAN POTASSIUM 25 MG TABLET PO (08:55)
[2021-07-20] MEDS: hydroCHLOROthiazide 25 MG TABLET PO (08:55)
[2021-07-20] MEDS: SODIUM CHLORIDE NASAL GEL 14.1 GM 1 APPLIC NASAL (08:56)
--- NOTE | 2021-07-20 09:24 | PM.PNPUL ---
Progress Note: A&P Assessment and Plan (1) COVID-19: Code(s): U07.1 - COVID-19 Status: Acute Assessment and Plan: Re-infection; had COVID with treatment including monoclonal antibodies 2 months ago, improved to baseline and now has recurrent symptoms and positive COVID testing. (2) Pneumonia: Qualifiers: Laterality: unspecified laterality Lung location: unspecified part of lung Pneumonia type: due to unspecified organism Qualified Code(s): J18.9 - Pneumonia, unspecified organism Code(s): J18.9 - Pneumonia, unspecified organism Status: Acute Assessment and Plan: 80-year-old female Immunocompromised with history of CLL chronically on oral steroids has had acute hypoxemic respiratory failure, bilateral extensive patchy infiltrates with some subpleural distribution most likely due to acute COVID-19 infection. Patient was tested positive for COVID-19 infection and received monoclonal antibodies on outpatient basis approximately 2 months ago. 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 The bilateral pulmonary infiltrates are more consistent with acute infection rather than infiltrates related to superimposed organizing pneumonia. Plan is as follows. The patient is still receiving 60 L/min and 90% on an AirVo system. Continue remdesivir and IV dexamethasone. She started baricitinib Jul 13. Chest x-ray done today showed possible partial infiltrate clearing. no new infiltrates seen. CRP more or less in the same range; procalcitonin not elevated. Patient was placed on BiPAP support 14/8 and 100% FiO2 for no lower oxyhemoglobin saturation on high-flow nasal cannula. Continue with cefepime, vancomycin IV added. sputum culture pending. Patient does not want to be intubated. (3) Hypoxia: Code(s): R09.02 - Hypoxemia Status: Acute Assessment and Plan: See above. She is still on high amounts of O2, CXR is ugly however CRP is lower. (4) CLL (chronic lymphocytic leukemia): Code(s): C91.10 - Chronic lymphocytic leukemia of B-cell type not having achieved remission Status: Chronic Assessment and Plan: Has had for 12 years, followed by Dr Castellon. Subjective Date/time seen: 07/20/21 09:24 Patient has more shortness of breath this a.m.. She was running a low-grade temperature over the last 24 hours. She continues to have a dry cough no sputum production. She has no chills. O2 saturation a lower on high-flow nasal cannula, non-rebreather mask added. Review of Systems Review of Systems: All systems reviewed & are unremarkable except as noted in HPI and below Exam Narrative: GENERAL APPEARANCE: Well developed, well nourished, alert and cooperative, who appears to be in mild respiratory distress while receiving oxygen via high flow nasal cannula. CHEST: Normal AP diameter and normal contour without any kyphoscoliosis. LUNGS: Auscultation of the lungs revealed crackles at bases posteriorly no wheezing CARDIAC: There was a regular rate and rhythm without any murmurs. ABDOMEN: Soft and nontender with normal bowel sounds. There was no organomegaly. EXTREMITIES: No cyanosis, clubbing or edema. NEUROLOGIC: Alert, moving all extremities Objective Data Vital Signs Vital Signs: Vital Signs - 24 hr 07/19/21 10:00 07/19/21 10:32 07/19/21 10:47 Temperature 38.2 C H Pulse Rate 86 83 Respiratory Rate 31 H Blood Pressure Pulse Oximetry 94 07/19/21 11:47 07/19/21 12:00 07/19/21 14:00 Temperature 37.7 C H 37.7 C H Pulse Rat
[2021-07-20] MEDS: BARICITINIB 2 MG TABLET PO (10:18)
[2021-07-20] MEDS: traMADol HCL (*CRX) 50 MG TABLET 100 MG PO ×2 (10:20→22:52)
--- NOTE | 2021-07-20 12:01 | PM.IMPN ---
Progress Note: A&P Assessment and Plan (1) Pneumonia: Qualifiers: Laterality: unspecified laterality Lung location: unspecified part of lung Pneumonia type: due to unspecified organism Qualified Code(s): J18.9 - Pneumonia, unspecified organism Code(s): J18.9 - Pneumonia, unspecified organism Status: Acute Assessment and Plan: On IV antibiotic -no clear whether patient hasa ctive COVID or if it still abnormal from her COVID that she had in May. 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 - Pharmacy to [facility] dose. - Sputum cx ordered. - Continue supplemental oxygen and titrate as needed. - Follow VS and trend labs including CBC, CMP, Lactic, Ferritin, CRP, LDH - COVID-19 positive. Unsure if she is in active infection, or if it is from her May documented infection. Will place patient in isolation and monitor. 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 - Provide supplemental Oxygen for support. Goal of >92%. Currently requiring increase in oxygen to 15L NC - Wean oxygen as able to. - Pt. being treated with IV steroids, IV abx and also with Inhalers. - Follow labs and VS. -pulm consulted, appreciate recommendations (4) Cellulitis: Qualifiers: Site of cellulitis: extremity Site of cellulitis of extremity: upper extremity Laterality: left Qualified Code(s): L03.114 - Cellulitis of left upper limb Code(s): L03.90 - Cellulitis, unspecified Status: Acute Assessment and Plan: Treated with IV antibiotic (5) CLL (chronic lymphocytic leukemia): Code(s): C91.10 - Chronic lymphocytic leukemia of B-cell type not having achieved remission Status: Chronic Assessment and Plan: - Pt's prednisone to be discontinued, however due to the current dx of covid and requirement of supplemental oxygen, Dexamethasone is started as well. -status post Nystatin swish and swallow as a prophylactic as well as her Diflucan as pt. is immunocompromised. (6) Osteoarthritis: Qualifiers: Osteoarthritis location: unspecified site Osteoarthritis type: unspecified Qualified Code(s): M19.90 - Unspecified osteoarthritis, unspecified site Code(s): M19.90 - Unspecified osteoarthritis, unspecified site Status: Chronic Assessment and Plan: - Continue home medication of Tramadol 100 mg Q6 hrs and Tylenol 1000 mg Q6 as needed for pain. (7) Diarrhea: Qualifiers: Diarrhea type: unspecified type Qualified Code(s): R19.7 - Diarrhea, unspecified Code(s): R19.7 - Diarrhea, unspecified Status: Acute Assessment and Plan: . Monitor closely for seated - Stool panel. - Monitor and if too problematic consider Banatrol or anti-diarrheal. (8) COVID-19: Code(s): U07.1 - COVID-19 Status: Acute Assessment and Plan: - Remdesivir - Dexamethasone - Ipratropium/Albuterol Q6 hrs scheduled - Albuterol Q4 hrs prn - Supplemental oxygen - Isolation. - Negative flu -baricitinib started per pulm Subjective Date/time seen: 07/20/21 12:01 Interval history: 80 year old female patient with significant PMH of CLL, last Chemotherapy in 11/2019, chronic Immunosuppression with Predni
[2021-07-20 12:42] LABS: Alanine Aminotransferase 20 U/L (4-35); Albumin Level 2.3 g/dL (3.5-5.1); Alkaline Phosphatase 238 U/L (38-126); Anion Gap 4 mmol/L (8-16); Aspartate Amino Transferase 41 U/L (14-36); Bilirubin,Total 0.7 mg/dL (0.2-1.3); Blood Urea Nitrogen 63 mg/dL (7-17); Calcium 8.3 mg/dL (8.4-10.2); Carbon Dioxide 21 mmol/L (22-30); Chloride 98 mmol/L (98-107); Estimated CRCL calculation 34 ml/min; Estimated Glomerular Filt Rate 48; Glucose 103 mg/dL (65-110); Sodium 123 mmol/L (137-145)
[2021-07-20] MEDS: REMDESIVIR 100 MG/NS 250 ML 100 MG/250 ML BAG 250 MG IVPB (21:14)
[2021-07-20] MEDS: ZOLPIDEM TARTRATE (*CRX) 5 MG TABLET PO (22:52)
[2021-07-21] VITALS (13 sets, daily range): BP systolic 98–123; BP diastolic 61–65; PULSE 82–120; RESP 20–32; TEMP 36.7–37.4; O2SAT 90–94
[2021-07-21] MEDS: ALBUTEROL SULFATE NEB 2.5 MG/3 ML INH INHALATION (02:05)
--- NOTE | 2021-07-21 03:05 | PCRCNOTE ---
Due to the patient severely desatting when the bipap mask is removed, I chose to insert an aerogen in line and give an updraft treatment instead of patient's scheduled 0200 MDI.
[2021-07-21 04:40] LABS: Hematocrit 35.4 % (37.0-47.0); Hemoglobin 12.2 g/dL (12.0-15.0); Mean Corpuscular HGB Conc 34.5 g/dl (32-36); Mean Corpuscular Hemoglobin 32.2 pg (26-34); Mean Corpuscular Volume 93.4 fl (80-100); Mean Platelet Volume 10.4 fl (7.4-10.4); Platelet Count Result 463 k/mm3 (150-375); Red Blood Count 3.79 M/mm3 (4.2-5.4); Red Cell Distribution Width 14.5 % (11.5-14.5); White Blood Count 35.1 K/mm3 (4.5-10.0)
[2021-07-21 04:53] LABS: Alanine Aminotransferase 21 U/L (4-35); Aspartate Amino Transferase 42 U/L (14-36); Estimated CRCL calculation 31 ml/min; Estimated Glomerular Filt Rate 43
[2021-07-21 04:55] LABS: Band Neutrophils Percent 4 % (0-6); Monocytes Absolute Manual 1.05 K/mm3 (0.1-0.90); Monocytes Percent Manual 3 % (3-9); Neutrophils Absolute Manual 33.34 K/mm3 (1.7-7.2); Neutrophils Percent Manual 91 % (46-73); Total Cells Counted 100
[2021-07-21 04:56] LABS: Anisocytosis 1+ (NORMAL); Large Platelets Present; Ovalocytes 1+ (NORMAL); Platelet Estimate Increased (Adequate); Poikilocytosis 1+ (NORMAL)
[2021-07-21] MEDS: UMECLIDINIUM BROMIDE 62.5 MCG ELLIPTA 1 PUFF INHALATION (08:21)
[2021-07-21] MEDS: ALBUTEROL SULFATE (*SP) AEROSOL 1 PUFF 2 PUFF INHALATION (08:21)
[2021-07-21] MEDS: FUROSEMIDE INJ 40 MG/4 ML VIAL IV PUSH (09:47)
[2021-07-21] MEDS: METOPROLOL TARTRATE INJ 5 MG/5 ML VIAL IV PUSH (09:47)
[2021-07-21] MEDS: PANTOPRAZOLE SODIUM IV 40 MG VIAL IV PUSH (09:47)
[2021-07-21] MEDS: ENOXAPARIN 40 MG/0.4 ML SYRINGE SUB-Q (09:50)
--- NOTE | 2021-07-21 10:32 | PCOTNOTE ---
Attempted to see pt for occupational therapy tx, however, per RN pt is going comfort care measures and is not appropriate for therapy. Will continue per poc duration/frequency tomorrow.
--- NOTE | 2021-07-21 11:02 | PM.PNPUL ---
Progress Note: A&P Assessment and Plan (1) COVID-19: Code(s): U07.1 - COVID-19 Status: Acute Assessment and Plan: Re-infection; had COVID with treatment including monoclonal antibodies 2 months ago, improved to baseline and now has recurrent symptoms and positive COVID testing. (2) Pneumonia: Qualifiers: Laterality: unspecified laterality Lung location: unspecified part of lung Pneumonia type: due to unspecified organism Qualified Code(s): J18.9 - Pneumonia, unspecified organism Code(s): J18.9 - Pneumonia, unspecified organism Status: Acute Assessment and Plan: 80-year-old female Immunocompromised with history of CLL chronically on oral steroids has had acute hypoxemic respiratory failure, bilateral extensive patchy infiltrates with some subpleural distribution most likely due to acute COVID-19 infection. Patient was tested positive for COVID-19 infection and received monoclonal antibodies on outpatient basis approximately 2 months ago. Reportedly the patient had fully recovered from the acute covid 19 illness 2 months ago and had been doing well until few days [employer]. 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 The bilateral pulmonary infiltrates are more consistent with acute infection rather than infiltrates related to superimposed organizing pneumonia. Patient stated that she does not want to be on BiPAP any longer. She just wanted to leave peacefully . Explained to the patient that at this point she could not stay alive without the BiPAP support and that without BIPAP she could only live for few minutes. The patient appeared very alert oriented to time and place. She again reiterated that she wanted to leave peacefully . Case was discussed with the hospitalist who will also document patient wishes and then place the patient on hospice care. (3) Hypoxia: Code(s): R09.02 - Hypoxemia Status: Acute Assessment and Plan: See above. She is still on high amounts of O2, CXR is ugly however CRP is lower. (4) CLL (chronic lymphocytic leukemia): Code(s): C91.10 - Chronic lymphocytic leukemia of B-cell type not having achieved remission Status: Chronic Assessment and Plan: Has had for 12 years, followed by Dr Castellon. Subjective Date/time seen: 07/21/21 11:02 patient is currently BiPAP dependent. She has more shortness of breath this a.m.. She has tachypnea but no other respiratory symptoms. Minute ventilation over 35 L on BiPAP screen. Patient does not want to be intubated. Review of Systems Review of Systems: All systems reviewed & are unremarkable except as noted in HPI and below Exam Narrative: GENERAL APPEARANCE: Well developed, well nourished, alert and cooperative, who appears to be in moderate to severe respiratory distress while on BiPAP support and supplemental oxygen.respiratory distress while receiving oxygen via high flow nasal cannula. CHEST: Normal AP diameter and normal contour without any kyphoscoliosis. LUNGS: Auscultation of the lungs revealed crackles at bases posteriorly no wheezing CARDIAC: There was a regular rate and rhythm without any murmurs. ABDOMEN: Soft and nontender with normal bowel sounds. There was no organomegaly. EXTREMITIES: No cyanosis, clubbing or edema. NEUROLOGIC: Alert, oriented x3, moving all extremities Objective Data Vital Signs Vital Signs: Vital Signs - 24 hr 07/20/21 11:57 07/20/21 12:00 07/20/21 14:00 Temperature 37.7 C H Pulse Rate 99 77 72 Respiratory Rate 20 22 H Blood Pressure 93/60 L Pulse Oximetry 91 92 07/20/21 14:37 07/20/21 16:00 07/20/21 18:00 Temperature 37.1 C Pulse
[2021-07-21] MEDS: MORPHINE SULFATE (*CRX) 2 MG/ML INJ IV PUSH ×2 (11:22→11:34)
[2021-07-21] MEDS: LORazepam INJ (*CRX) 2 MG/ML VIAL IV PUSH ×2 (11:22→12:24)
[2021-07-21] MEDS: MORPHINE SULFATE (*CRX) 4 MG/ML INJ IV PUSH (12:02)
[2021-07-21] MEDS: MORPHINE SULFATE (*CRX) 4 MG/ML INJ (12:25)
--- NOTE | 2021-07-21 13:10 | P.DN_ITS ---
Discharge Summary Date and Time Date of : 07/21/21 Time of : 12:51 Provider Pronounced By: Ramona Tejeda Probable Cause of Probable Cause of : Acute Hypoxic Respiratory Failure Summary Hospital Course: 80-year-old female Immunocompromised with history of CLL chronically on oral steroids has had acute hypoxemic respiratory failure, bilateral extensive patchy infiltrates with some subpleural distribution most likely due to acute COVID-19 infection. Patient was tested positive for COVID- 19 infection and received monoclonal antibodies on outpatient basis approximately 2 months ago. Reportedly the patient had fully recovered from the acute covid 19 illness 2 months ago and had been doing well until few days [employer]. 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 She was being managed in ICU for acute hypoxic Resp Failure 2/2 PNA. On day of expiration she stated that she does not want to be on BiPAP any longer. She just wanted to leave peacefully . Family was contacted, as per patient's wishes she was transitioned to comfort care measures. She was started on IV morphine/ativan. She at 12:51PM on 07/21/21. Family was present at bedside. Additional Data Family: at bedside Name of Provider Notified: Ramona Tejeda Time Provider Notified: 12:56 Was code activated?: No Hospice patient?: Yes
== END 2021-07-21 12:51 | disposition expired | DRG 177 ==
LOC: ANHED 15:44 → ANH3MEDSUR 16:22 → ANHICU 07-13 15:31
PROVIDERS: Family Medicine; Internal Medicine; Internal Medicine Pulmonary Disease; Nurse Practitioner Adult Health; Physician Assistant; Admitting Provider Internal Medicine; Emergency Provider Emergency Medicine; PCP Internal Medicine; Visit Provider Internal Medicine
DX: U07.1 COVID-19 (principal); J96.01 Acute respiratory failure with hypoxia; J18.9 Pneumonia, unspecified organism; J12.82 Pneumonia due to coronavirus disease 2019; L03.114 Cellulitis of left upper limb; I47.1 Supraventricular tachycardia; C91.10 Chronic lymphocytic leukemia of B-cell type not having achieved remission; E87.1 Hypo-osmolality and hyponatremia; K58.2 Mixed irritable bowel syndrome; M19.90 Unspecified osteoarthritis, unspecified site; K21.9 Gastro-esophageal reflux disease without esophagitis; E78.5 Hyperlipidemia, unspecified; E03.9 Hypothyroidism, unspecified; R19.7 Diarrhea, unspecified; I10 Essential (primary) hypertension; Z66 Do not resuscitate; Z90.710 Acquired absence of both cervix and uterus; Z90.49 Acquired absence of other specified parts of digestive tract; Z86.16 Personal history of COVID-19
CPT/HCPCS: 36415; 36600; 71045; 71275; 80048; 80053; 81003; 82375; 82565; 82728; 82805; 83050; 83605; 83615; 83735; 84145; 84450; 84460; 85025; 85380; 85610; 85652; 85730; 86140; 87040; 87045; 87081; 87269; 87272; 87427; 87493; 87804; 93005; 94002; 94003; 94640; 96361; 96372; 96374; 96375; 97161; 97163; 97167; 99285; A9270; C9113; C9803; G0378; J0456; J0692; J0696; J1100; J1650; J1940; J2060; J2270; J3370; J7030; Q9967; U0003; U0005